=== PATIENT | female | born 1955 | race Caucasian/White ===

== ENCOUNTER → 2019-02-15 15:37 | Outpatient (CLI) | payer OTHER, MEDICARE, SELFPAY ==
[2019-02-15 17:14] LABS: Absolute Lymphocyte Count 1.62 X10^3/ul (0.83-4.51); Absolute Neutrophil Count 4.2 X10^3/uL (2.0-7.7); Basophil# 0.04 X10^3/uL; Basophil% 0.6 % (0-1); Eosinophil# 0.11 X10^3/uL; Eosinophils% 1.7 % (0-5); Hematocrit 41.6 % (37-47); Lymphocyte # 1.62 X10^3/ul (4.0); Mean Corp Hgb Conc 33.7 g/gl (32-36); Mean Corpuscular Hgb 29.6 pg (27.0-32.0); Mean Corpuscular Volume 87.9 fL (81-99); Mean Platelet Vol. 10.5 fl (6.2-12.0); Monocyte# 0.47 X10^3/uL; Monocyte% 7.3 % (0-10); Neutrophil # 4.24 X10^3/uL (2.7-7.7); Neutrophil % 65.4 % (47-70); Platelet Count 321 K/mm3 (150-450); RBC Distribution Width CV 13.5 % (11.6-14.6); RBC Distribution Width SD 43.6 fl (35.1-43.9); Red Blood Count 4.73 M/mm3 (4.2-5.4); White Blood Count 6.5 K/mm3 (4.4-11.0)
[2019-02-15 17:16] LABS: POSITIVE COUNT NO; POSITIVE DIFFERENTIAL NO; POSITIVE MORPHOLOGY NO
[2019-02-15 17:19] LABS: Erythrocyte Sedimentation Rate 22 mm/hr (0-30)
[2019-02-15 17:42] LABS: Thyroid Stim Hormone (TSH) 1.29 uIU/mL (0.358-3.74)
== END ==
PROVIDERS: Family Provider Family Medicine; PCP Family Medicine; Visit Provider Family Medicine
DX: G44.209 Tension-type headache, unspecified, not intractable (principal); E03.9 Hypothyroidism, unspecified; R68.84 Jaw pain
CPT/HCPCS: 36415; 84443; 85025; 85652; 86140

== ENCOUNTER → 2019-03-04 13:31 | Outpatient (CLI) | payer MEDICARE, OTHER, SELFPAY ==
[2019-03-04 15:32] LABS: Absolute Lymphocyte Count 1.51 X10^3/ul (0.83-4.51); Absolute Neutrophil Count 2.6 X10^3/uL (2.0-7.7); Basophil# 0.03 X10^3/uL; Basophil% 0.7 % (0-1); Eosinophil# 0.15 X10^3/uL; Eosinophils% 3.3 % (0-5); Hemoglobin 12.9 g/dl (12.0-15.0); Lymphocyte # 1.51 X10^3/ul (4.0); Lymphocyte % 32.8 % (19-41); Mean Corp Hgb Conc 33.1 g/gl (32-36); Mean Corpuscular Hgb 28.9 pg (27.0-32.0); Mean Corpuscular Volume 87.4 fL (81-99); Mean Platelet Vol. 11.4 fl (6.2-12.0); Monocyte# 0.35 X10^3/uL; Monocyte% 7.6 % (0-10); Neutrophil # 2.55 X10^3/uL (2.7-7.7); Neutrophil % 55.4 % (47-70); POSITIVE COUNT NO; POSITIVE DIFFERENTIAL NO; POSITIVE MORPHOLOGY NO; Platelet Count 277 K/mm3 (150-450); RBC Distribution Width CV 13.5 % (11.6-14.6); RBC Distribution Width SD 42.1 fl (35.1-43.9); Red Blood Count 4.46 M/mm3 (4.2-5.4); White Blood Count 4.6 K/mm3 (4.4-11.0)
[2019-03-04 15:38] LABS: CRP 6.36 mg/L (0.0-3.0)
[2019-03-04 16:30] LABS: Erythrocyte Sedimentation Rate 17 mm/hr (0-30)
== END ==
PROVIDERS: Family Provider Family Medicine; PCP Family Medicine; Visit Provider Family Medicine
DX: R51 Headache (principal)
CPT/HCPCS: 36415; 85025; 85652; 86140

== ENCOUNTER 2024-02-29 07:08 | Day surgery (SDC) | payer MEDICARE, OTHER, SELFPAY ==
[2024-02-29] VITALS (8 sets, daily range): BP systolic 105–118; BP diastolic 65–73; PULSE 69–74; RESP 16; TEMP 36.1–36.6; O2SAT 96–100; BMI 25.7
--- NOTE | 2024-02-29 07:17 | EKG12_ITS ---
Test Reason : PRE OP Blood Pressure : / mmHG Vent. Rate : 066 BPM Atrial Rate : 066 BPM P-R Int : 194 ms QRS Dur : 078 ms QT Int : 402 ms P-R-T Axes : 025 -09 003 degrees QTc Int : 421 ms Normal sinus rhythm Septal infarct , age undetermined Abnormal ECG No previous ECGs available Confirmed by CARIN HILLMAN, TAMI ([id number]), purchasing expeditor KIMBERLI ASHTON ([id number]) on 03/03/2024 8:34:07 AM Referred By: Rick Brown Confirmed By:TAMI DEL ROSARIO MD
--- NOTE | 2024-02-29 07:35 | PRE.ANES_ITS ---
ASA Classification* ASA Classification ASA Classification: 2 Assessment & Plan Anesthesia* Anesthesia Assessment Anesthesia Assessment: Discussed sedation and/or anesthesia options, risks, benefits, and alternatives with patient/parents/legal guardian/POA. Questions invited. The patient/parents/legal guardian/POA seems to understand and agrees to proceed with anesthesia plan. Reviewed the physical assessment, medical history, allergy history and patient home medications list prior to surgery/procedure/anesthetic and documented any changes. Performed airway and anesthesia risk assessments. 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 When Was Last Pacemaker Check QUESTION #4 FULL TEXT: You/Your Family Experience fever (hyperthermia) with Anesthesia Last Oral Intake Last Oral intake: Last Oral Intake NPO since Meds taken in AM with sips of water? 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 Female Yes 02/26/24 10:46 HX of Motion Sickness Yes 02/26/24 10:46 HX of N/V After Surgery No 02/26/24 10:46 Non-Smoker Yes 02/26/24 10:46 Duration of Surgery greater No 02/26/24 10:46 than 60 minutes Number of Risk Factors 3 02/26/24 10:46 PONV Score Moderate Risk 02/26/24 10:46 Respiratory Assessment Respiratory Assessment - deep fryer assembler: Respiratory Tract Infection Hx - deep fryer assembler Hx Respiratory Tract Infection No 02/26/24 10:46 STOP Sleep Apnea STOP Sleep Apnea - deep fryer assembler: STOP Sleep Apnea - deep fryer assembler Hx Hypertension No 02/26/24 10:46 Hx Sleep Apnea No 02/26/24 10:46 CPAP BIPAP Do you snore loudly (louder No 02/26/24 10:46 than talking or can be heard Do you often feel tired/ No 02/26/24 10:46 fatigued/ sleepy during daytime? Has anyone observed you stop No 02/26/24 10:46 breathing during sleep? STOP Results Negative 02/26/24 10:46 QUESTION #5 FULL TEXT : Do you snore loudly (louder than talking or can be heard through closed doors)? 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 Specify any problems NEUROLEPTIC MALIGNENCY 02/26/24 10:46 Hx of Preganancy in last 3 No 02/26/24 10:46 Months Nurse Filling Out Transfusion DSCHRIBER 02/26/24 10:46 & Questions: Date: 02/26/24 02/26/24 10:46 Time: 10:48 02/26/24 10:46 Patient unable to answer at this time (ie. confused, unrespo /Reproduction History /Reproductive History - deep fryer assembler: /Reproductive Hx- deep fryer assembler Hx Now No 02/26/24 10:46 Gestational Age (in weeks): EDC: Hx Hx Para Hx Section SAB No 02/26/24 10:46 Active Medications Active Medications: Current Medications Generic Name Dose Route Start Last Admin Trade Name Freq PRN Reason Stop Dose Admin Lactated Ringer's 1,000 mls @ 15 mls/hr 02/29/24 07:30 IV .Q48H [facility] Anesthesia Focused Assessment* Airway Assessment Mouth opens: >3 cm Mallampati Score: II Focused Labs Anesthesia Preop lab: CBC WBC 4.6 K/mm3 (4.4-11.0) 03/04/19 13:32 RBC 4.46 M/mm3 (4.2-5.4) 03/04/19 13:32 Hgb 12.9 g/dl (12.0-15.0) 03/04/19 13:32 Hct 39.0 % (37-47) 03/04/19 13:32 Plt Count 277 K/mm3 (150-450) 03/04/19 13:32 CHEMISTRY TSH 1.29 uIU/mL (0.358-3.74) 02/15/19 15:48 COAG Review of Systems (Anesthesia) ROS Narrative System reviewed and no additional complaints, except as documented. [facility] Medical History (Updated 02/26/24 @ 11:28 by Sharon Devries) Factor 5 Leiden mutation, heterozygous Wears hearing aid Wears glasses Post-menopausal Alcohol use History of steroid therapy Thyroid disease Rheumatoid arthritis Anemia Blood disorder Shortness of breath on exertion Non-smoker Leg cramps History of edema Home Medications ?Medication ?Instructions ?Recorded ?Last Taken ?Type albuterol sulfate 90 mcg/actuation 2 puff inhalation Q4H PRN PRN 02/26/24 Unknown History aerosol inhaler wheezing aspirin 81 mg tablet,delayed 81 mg PO DAILY 02/26/24 02/23/24 History release (Adult Low Dose Aspirin) hydroxychloroquine 200 mg tablet 200 mg PO BID 02/26/24 Unknown History levothyroxine 112 mcg tablet 112 mcg PO DAILY 02/26/24 Unknown History Allergy/AdvReac Type Severity Reaction Status Date / Time pollen extracts AdvReac sinusitis Verified 02/29/24 07:36 Surgical History (Updated 02/26/24 @ 11:00 by Sharon Devries) Hx of bladder repair surgery Hx of colonoscopy Hx of total hysterectomy Hx of brain surgery Social History Smoking Status: Never smoker
[2024-02-29] MEDS: Lactated Ringers 1,000 ML 15 ML IV (07:39)
[2024-02-29 08:02] LABS: Hematocrit 41.5 % (37-47); Hemoglobin 13.4 g/dL (12.0-15.0); Mean Corp Hgb Conc 32.3 g/dL (32-36); Mean Corpuscular Hgb 29.8 pg (27.0-32.0); Mean Corpuscular Volume 92.4 fL (81-99); Platelet Count 253 K/mm3 (150-450); RBC Distribution Width CV 13.1 % (11.6-14.6); RBC Distribution Width SD 44.5 fl (35.1-43.9); Red Blood Count 4.49 M/mm3 (4.2-5.4)
[2024-02-29 08:13] LABS: Anion Gap 6 (5-15); BUN 10 mg/dL (7-18); BUN/Creat Ratio 16.3 RATIO (10-20); Calcium,Total 8.5 mg/dL (8.5-10.1); Chloride 111 mmol/L (98-107); Creatinine, Serum 0.61 mg/dL (0.55-1.02); EST Glomerular Filtration Rate 102 mL/min (>60); Est Glom Filt Rate - Afr Amer 124 mL/min (>60); Estimated Creatinine Clearance 66.71 ml/min; Glucose 98 mg/dL (74-106); Potassium 3.9 mmol/L (3.5-5.1); Sodium Level 142 mmol/L (136-145)
--- NOTE | 2024-02-29 09:02 | DS.PCM_ITS ---
Providers Primary Care Physician: Dr. Alyssa Philip MD Reason For Visit: Myringotomy,Tubes Medications at Discharge Home Medications albuterol sulfate 90 mcg/actuation aerosol inhaler 2 puff inhalation Q4H PRN PRN wheezing 02/26/24 aspirin 81 mg tablet,delayed release (Adult Low Dose Aspirin) 81 mg PO DAILY 02/26/24 hydroxychloroquine 200 mg tablet 200 mg PO BID 02/26/24 levothyroxine 112 mcg tablet 112 mcg PO DAILY 02/26/24 Weight / BMI Weight Weight: 72.5 kg Body Mass Index (BMI) 25.7 ABG / Lab / Microbiology Data 02/29/24 07:47 02/29/24 07:47 Laboratory: Laboratory Results - last 24 hr 02/29/24 07:47: WBC 5.0, RBC 4.49, Hgb 13.4, Hct 41.5, MCV 92.4, MCH 29.8, MCHC 32.3, RDW Std Deviation 44.5 H, RDW Coeff of Marie 13.1, Plt Count 253, MPV 10.0, Sodium 142, Potassium 3.9, Chloride 111 H, Carbon Dioxide 25.0, Anion Gap 6, BUN 10, Creatinine 0.61, Estim Creat Clear Calc 66.71, Est GFR (MDRD) Af Amer 124, Est GFR (MDRD) Non-Af 102, BUN/Creatinine Ratio 16.3, Glucose 98, Calcium 8.5 D/C Instructions Discharge Diet: No restrictions Discharge Activity: Return to Normal Activity Additional Instructions: Ear drops....5 drops each ear twice a day for 2 days (3 doses) Please Follow Up With: Rick Brown MD When: 3 weeks Meaningful Use Info Meaningful Use Meaningful Use Diagnoses (Choose all that apply): None applicable Ischemic Stroke Statin Dosing Therapy Reference: STATIN DOSE THERAPY REFERENCE: * Patients > 75 years receive moderate or high dose statin therapy. * Patients 75 years or YOUNGER should receive HIGH intensity statin dose unless contraindicated. You will be required to document reason for non-treatment if statin daily dose does not meet guidelines. HIGH DOSE STATIN THERAPY DAILY Atorvastatin > than or = to 40 mg Rosuvastatin > than or = to 20 mg Amlodipine + Atorvastatin > than or = to 2.5/40 mg Ezetimibe + Simvastatin 10/80 mg Simvastatin 80mg Discharge Plan Admission Attending Provider: Rick Brown Primary Care Provider: Alyssa Philip Instructions Print Language: Croatian Discharge Orders/Prescriptions Prescriptions: No Action levothyroxine 112 mcg tablet 112 mcg PO DAILY hydroxychloroquine 200 mg tablet 200 mg PO BID aspirin [Adult Low Dose Aspirin] 81 mg tablet,delayed release (DR/EC) 81 mg PO DAILY albuterol sulfate 90 mcg/actuation HFA aerosol inhaler 2 puff INHALATION Q4H PRN PRN (Reason: wheezing) Referrals / Follow Up: Alyssa Philip MD [Primary Care Provider] - Disposition Disposition (needs filled in before D/C Order can be placed): Home, Self Care
--- NOTE | 2024-02-29 09:03 | OP.PCM_ITS ---
Report of Operation Date of Procedure: 02/29/24 Pre-Operative Diagnosis: chronic serous otitis media Post-Operative Diagnosis: same Surgery/Procedure Performed:: Bilateral myringotomy with tubes Surgeon: Rick Brown Type of Anesthesia: General Anesthesiologist: Pascual Correa Estimated Blood Loss (mL): minimal Description of Procedure: The patient was taken to the operating room on 02/29/2024. The patient was placed in the supine position on the operating room table. The patient was given sufficient general anesthesia. The operating microscope was used throughout the entire case. A speculum was inserted into the patient's left ear. Cerumen was removed using a curette. An incision was placed in the anterior inferior quadrant of the tympanic membrane. Fluid was suctioned from the middle ear space with a #5 suction. A Arun Bobin tube was placed without difficulty. Antibiotic drops were instilled into the patient's ear. Next, a speculum was inserted into the patient's right ear. Cerumen was removed using a curette. An incision was placed in the anterior inferior quadrant of the tympanic membrane. Fluid was suctioned from the middle ear space with a #5 suction. A arun bobin tube was placed without difficulty. Antibiotic drops were instilled into the patient's ear. The patient was then awoken. They were brought to the recovery room in stable condition. Blood loss minimal, replacement none. sponge, needle and instrument counts correct at the end of the procedure.
[2024-02-29] MEDS: Ciprofloxacin 0.3% 2.5ml Bottle 1 DRP (09:19)
--- NOTE | 2024-02-29 09:37 | PCM.POST.ANE ---
Anesthesia: Postop Eval I Current Vital Signs Temperature: 97.6 F Pulse Rate: 71 Blood Pressure: 107/71 Respiratory Rate: 16 Pulse Ox: 96 Assessment Airway patent: Yes Spontaneous unlabored respirations: Yes Mental status: Awake nausea: No Vomiting: No Anesthesia Complication: No Fluid Hydration Crystalloid volume administer (ml): 400 Total IV fluid infused: 400 Progress Note Anesthesia document: Postop Eval 1 completed: Yes
--- NOTE | 2024-02-29 12:36 | PCM.POSTANE2 ---
Anesthesia Postop Eval I Sum Postop Eval Completion status Anesthesia document: Postop Eval 1 completed: Yes Anesthesia Postop Eval I Summary Anesthesia Postop Eval I Summary: Anesthesia Postop Eval I: Assessment Summary Airway patent Yes 02/29/24 09:39 Spontaneous unlabored Yes 02/29/24 09:39 respirations Mental status Awake 02/29/24 09:39 nausea No 02/29/24 09:39 Vomiting No 02/29/24 09:39 Anesthesia Postop Eval I: Fluid Summary Crystalloid volume administer 400 02/29/24 09:39 (ml) Colloids volume administered ( ml) Blood Product volume administered (ml) Total IV fluid infused 400 02/29/24 09:39 Anesthesia Postop Eval I: Summary Notes Anesthesia Complication No 02/29/24 09:39 Anesthesia Complication Comment: Post-operative progress note Anesthesia: Postop Eval II Evaluation Mental status: Awake Pain Level: 0 nausea: No Vomiting: No Complications Anesthesia Complication: No
== END 2024-02-29 10:50 | disposition home or self-care (01) ==
LOC: SDC 07:10 → AC 07:12
PROVIDERS: PCP Family Medicine; Referring Provider Otolaryngology; Visit Provider Otolaryngology
PROC: (CPT 69436; principal; 2024-02-29 08:35)
DX: H65.23 Chronic serous otitis media, bilateral (principal); E07.9 Disorder of thyroid, unspecified; Z79.82 Long term (current) use of aspirin; Z79.890 Hormone replacement therapy
CPT/HCPCS: 69436; 00126; 80048; 85027; 93005; J7120

== ENCOUNTER → 2024-07-29 | Outpatient (CLI) | payer MEDICARE, OTHER, SELFPAY ==
[2024-07-29 15:45] LABS: T4 Free Direct 1.07 ng/dL (0.76-1.46)
== END | disposition home or self-care (01) ==
LOC: BFHLAB 11:50
PROVIDERS: PCP Family Medicine; Referring Provider Family Medicine; Visit Provider Family Medicine
DX: E03.9 Hypothyroidism, unspecified (principal)
CPT/HCPCS: 36415; 84439; 84443

== ENCOUNTER → 2025-08-25 | Outpatient (CLI) | payer MEDICARE, OTHER, SELFPAY ==
--- OUTSIDE RECORDS SUMMARY | 2025-08-25 16:05 | XMS RPT_ITS | CCD ---
Author Organization [facility]iniSyne Care Team Providers Care Project Management Instructor Name Role Phone Cj Ron Unavailable Unavailable Stanislav Cazares Unavailable Unavailable Alyssa Philip Primary Care Provider [phone] Alyssa Philip Primary Care Provider Alyssa Philip MD Primary Care Provider Alyssa Philip MD Primary Care Provider ALYSSA PHILIP Attending Unavailable MIKAMRYNEL, ALYSSA Admitting Unavailable MIEDEL, ALYSSA Primary Care Unavailable MIEDEL, ALYSSA Consulting Unavailable PROVIDER, UNKNOWN Consulting Unavailable PROVIDER, UNKNOWN Consulting Unavailable MIKAMRYNEL, ALYSSA Attending Unavailable MIEDEL, ALYSSA Admitting Unavailable MIEDEL, ALYSSA Primary Care Unavailable MIEDEL, ALYSSA Consulting Unavailable PROVIDER, UNKNOWN Consulting Unavailable PROVIDER, UNKNOWN Consulting Unavailable MIKAMRYNEL, ALYSSA Attending Unavailable MIEDEL, ALYSSA Admitting Unavailable MIEDEL, ALYSSA Primary Care Unavailable MIEDEL, ALYSSA Consulting Unavailable PROVIDER, UNKNOWN Consulting Unavailable PROVIDER, UNKNOWN Consulting Unavailable Miedel, Alyssa Primary Care Unavailable Quincy Pierce Attending Unavailable Rick Brown Referring Unavailable Miedel, Alyssa Primary Care Unavailable Rick Brown Referring Unavailable Rick Brown Attending Unavailable Mikamrynel, Alyssa Attending Unavailable Miedel, Alyssa Primary Care Unavailable Miedel, Alyssa Referring Unavailable Alyssa Philip MD Primary Care Provider UNGPRASERT, PATOMPONG Attending Unavailabl e ALYSSA PHILIP E Primary Care Unavailable UNGPRASERT, PATOMPONG Referring Unavailabl e MIEDEL, ALYSSA E Primary Care Unavailable UNGPRASERT, PATOMPONG Referring Unavailabl e MIEDEL, ALYSSA E Primary Care Unavailable UNGPRASERT, PATOMPONG Referring Unavailabl e MIEDEL, ALYSSA E Primary Care Unavailable UNGPRASERT, PATOMPONG Attending Unavailabl e MIEDEL, ALYSSA E Primary Care Unavailable Allergies Allergy Classification Reported Allergen(s) Allergy Type Date of Onset Reaction(s) Facility (9 sources) Seasonal [Other] Propensity to adverse reactions 3 [facility] Work Phone (unformatted): [phone] (1 source) Pollen Drug allergy (disorder) 4 [facility] Repository Medications Current Medications Medication Drug Class(es) Dates Sig (Normalized) Sig (Original) aspirin 81 mg chewable tablet (13 sources) Platelet Aggregation Inhibitor, Nonsteroidal Anti-inflammatory Drug Start: 8 take 1 tablet by mouth once daily aspirin 81 mg chewable tablet Take 1 tablet by mouth once daily. 30 tablet 2 02/17/2018 Active Comment on above: Take 1 tablet by yohannes th once daily. hydroxychloroquine sulfate 200 mg oral tablet (20 sources) Antimalarial, Antirheumatic Agent Start: 5 End: 5 take 1 tablet by mouth twice daily hydrOXYchloroQUINE (PLAQUENIL) 200 mg tablet Indications: Seronegative rheumatoid arthritis (HCC) Take 1 tablet by mouth twice daily 180 tablet 3 05/29/2025 Active Start: 01-16-2025 End: 03-13-2025 take 1 tablet by mouth twice daily hydrOXYchloroQUINE (PLAQUENIL) 200 mg tablet Indications: Seronegative rheumatoid arthritis (HCC) Take 1 tablet by mouth twice daily 60 tablet 03/13/2025 Active Start: 12-23-2021 End: 01-11-2025 take 1 tablet by mouth twice daily hydrOXYchloroQUINE (PLAQUENIL) 200 mg tablet Indications: Seronegative rheumatoid arthritis (HCC) Take 1 tablet by mouth two times a day. 180 tablet 3 01/12/2024 01/11/2025 Active Comment on above: Take 1 tablet by yohannes th twice daily. Take 1 tablet by yohannes th twice daily iv contrast (will be provided with radiology test) (20 sources) Start: 3 End: 3 inject 1 dose intravenously once iv contrast (will be provided with radiology test) Indications: Dural arteriovenous fistula MRI Brain Inject, intravenously, once for 1 dose.No IV access, insert saline lock prior to beginning of sedation, infusion, injection of imaging exam.Discontinue saline lock post exam. If Pt. has a central line or IVAD, may access for administration according to line specific nursing protocol.Once exam is complete flush line and de-access according to line specific nursing protocol in the MR contrast administration guidelines link 1 Each 0 09/19/2022 09/19/2022 Active Start: 2021 End: 01-09-2025 iv contrast (will be provide d with radiology test) Indications: Seizure (HCC) MRA Brain Inject, intravenously, once for 1 dose. No IV access, insert saline lock prior to the beginning of sedation, infusion, injection of imaging exam. Discontinue saline lock post exam. If Pt. has a central line or IVAD, may access for administration according to line specific nursing protocol. Once exam is complete flush line and de-access according to line specific nursing protocol in the MR contrast administration guidelines link. 1 Each 2021 01/09/2025 Discontinued Start: 2021 iv contrast (w ill be provided with radiology test) Indications: Seizure (HCC) MRA Brain Inject, intravenously, once for 1 dose. No IV access, insert saline lock prior to the beginning of sedation, infusion, injection of imaging exam. Discontinue saline lock post exam. If Pt. has a central line or IVAD, may access for administration according to line specific nursing protocol. Once exam is complete flush line and de-access according to line specific nursing protocol in the MR contrast administration guidelines link. 1 Each 2021 Active Start: 2021 iv contrast (w ill be provided with radiology test) Indications: Seizure (HCC) MRA Brain Inject, intravenously, once for 1 dose. No IV access, insert saline lock prior to the beginning of sedation, infusion, injection of imaging exam. Discontinue saline lock post exam. If Pt. has a central line or IVAD, may access for administration according to line specific nursing protocol. Once exam is complete flush line and de-access according to line specific nursing protocol in the MR contrast administration guidelines link. 1 Each 0 2021 Active Start: 05-03-2018 End: 01-09-2025 inject 1 dose intravenously once iv contrast (will be provided with radiology test) MRI Brain Inject, intravenously, once for 1 dose.No IV access, insert saline lock prior to beginning of sedation, infusion, injection of imaging exam.Discontinue saline lock post exam. If Pt. has a central line or IVAD, may access for administration according to line specific nursing protocol.Once exam is complete flush line and de-access according to line specific nursing protocol in the MR contrast administration guidelines link 1 Each 05/03/2018 01/09/2025 Discontinued Start: 05-03-2018 inject 1 dose intravenously on ce iv contrast (will be provided with radiology test) MRI Brain Inject, intravenously, once for 1 dose.No IV access, insert saline lock prior to beginning of sedation, infusion, injection of imaging exam.Discontinue saline lock post exam. If Pt. has a central line or IVAD, may access for administration according to line specific nursing protocol.Once exam is complete flush line and de-access according to line specific nursing protocol in the MR contrast administration guidelines link 1 Each 05/03/2018 Active Start: 05-03-2018 inject 1 dose intravenously on ce iv contrast (will be provided with radiology test) MRI Brain Inject, intravenously, once for 1 dose.No IV access, insert saline lock prior to beginning of sedation, infusion, injection of imaging exam.Discontinue saline lock post exam. If Pt. has a central line or IVAD, may access for administration according to line specific nursing protocol.Once exam is complete flush line and de-access according to line specific nursing protocol in the MR contrast administration guidelines link 1 Each 0 05/03/2018 Active Comment on above: MRI Brain Inject, in travenously, once for 1 dose.No IV access, insert saline lock prior to beginning of sedation, infusion, injection of imaging exam.Discontinue saline lock post exam. If Pt. has a central line or IVAD, may access for administration according to line specific nursing protocol.Once exam is complete flush line and de-access according to line specific nursing protocol in the MR contrast administration guidelines link MRA Brain Inject, in travenously, once for 1 dose. No IV access, insert saline lock prior to the beginning of sedation, infusion, injection of imaging exam. Discontinue saline lock post exam. If Pt. has a central line or IVAD, may access for administration according to line specific nursing protocol. Once exam is complete flush line and de-access according to line specific nursing protocol in the MR contrast administration guidelines link. levothyroxine sodium 0.112 mg oral tablet (18 sources) l-Thyroxine Start: 022 take 1 tablet by mouth once daily levothyroxine (SYNTHROID) 112 mcg tablet Take 112 mcg by mouth once daily. 10/10/2021 Active Comment on above: Take 112 mcg by mout h once daily. polyethylene glycol 3350 90235 mg powder for oral solution (18 sources) Osmotic Laxative Start: 003 MIRALAX POWDER 17 gm po qd with 4 oz of liquid 1 bottle 3 08/08/2003 Active Comment on above: 17 gm po qd with 4 o z of liquid triamcinolone acetonide 5 mg/ml topical cream (14 sources) Corticosteroid Start: 023 triamcinolone acetonide (KENALOG) 0.5 % cream APPLY CREAM TOPICALLY TO AFFECTED AREA ONCE DAILY 02/03/2023 Active Comment on above: APPLY CREAM TOPICALL Y TO AFFECTED AREA ONCE DAILY Problems Active Problems Problem Classification Problem Date Documented Da te Episodic/Chronic Cardiac and circulatory congenital anomalies (2 sources) Congenital vascular malformation; 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] Chronic Coagulation and hemorrhagic disorders (18 sources) Genetic mutation; 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] Onset: 02-17-2018 02-17-2018 Chronic Menopausal disorders (18 sources) Atrophic vaginitis; Translations: [Postmenopausal atrophic vaginitis] Onset: 07-16-2004 08-13-2004 Chronic Osteoarthritis (1 source) Localized, primary osteoarthritis of the hand; Translations: [Primary osteoarthritis, unspecified hand] Chronic Other aftercare (6 sources) Taking high risk medication; Translations: [Other middle or intermediate school principal (current) drug therapy] Episodic Other aftercare (1 source) Other middle or intermediate school principal (current) drug therapy; Translations: [High risk medication use] Onset: 06-20-2025 Episodic Other and ill-defined cerebrovascular disease (20 sources) Dural arteriovenous fistula; 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, nonruptured] Onset: 05-03-2018 05-03-2018 Chronic Other circulatory disease (18 sources) Arteriovenous fistula; 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, acquired] Onset: 02-11-2018 02-16-2018 Chronic Other lower respiratory disease (1 source) Cough; Translations: [Cough, unspecified type] 06-30-2023 Episodic Other non-traumatic joint disorders (1 source) Hip pain; Translations: [Pain in right hip] 01-09-2025 Episodic Other non-traumatic joint disorders (1 source) Pain in right knee; Translations: [Pain in joint, lower leg] 01-09-2025 Episodic Otitis media and related conditions (1 source) Chronic serous otitis media, bilateral; Translations: [Chronic serous otitis media, bilateral] Onset: 03-07-2024 Chronic Rheumatoid arthritis and related disease (17 sources) Seropositive rheumatoid arthritis; Translations: [Rheumatoid arthritis with rheumatoid factor, unspecified] Onset: 06-20-2025 Chronic Thyroid disorders (19 sources) Hypothyroidism; Translations: [Hypothyroidism, unspecified] Onset: 02-16-2018 02-16-2018 Chronic Unclassified (1 source) Unknown / UNK(Unknown) Onset: 02-10-2018 Unclassified (18 sources) ASA CLASS III Onset: 09-26-2003 01-08-2004 Past or Other Problems Problem Classification Problem Date Documented Da te Episodic/Chronic Epilepsy; convulsions (19 sources) Seizure; Translations: [Unspecified convulsions] Onset: 02-10-2018 02-12-2018 Episodic Other screening for suspected conditions (not mental disorders or infectious disease) (18 sources) MRI of head abnormal; Translations: [Abnormal findings on diagnostic imaging of skull and head, not elsewhere classified] Onset: 11-17-2021 11-17-2021 Episodic Residual codes; unclassified (12 sources) Family history of cancer of colon; Translations: [Family history of malignant neoplasm of digestive organs] Onset: 12-18-2023 12-18-2023 Episodic Results Test Name Value Interpretation Reference Range Facility ALT SerPl-cCncon 06-20-2025 ALT [Catalytic activity/Vol] 17 U/L Normal 7-38 [facility] Comment on above: Order Comment: Speci men Type: BLOOD SPECIMEN Ordering Facility: [facility] Address: [address] [place] [id number] Performed By: #### 1 920-8, 1742-6, 3094-0, 56816-6 #### [facility] CLIA [id number] [address] [place] [address] [place] AST SerPl-cCncon 06-20-2025 AST [Catalytic activity/Vol] 22 U/L Normal 13-35 [facility] Comment on above: Order Comment: Speci men Type: BLOOD SPECIMEN Ordering Facility: [facility] Address: [address] [place] [address] Performed By: #### 1 920-8, 1742-6, 3094-0, 99716-7 #### [facility] CLIA [id number] [address] [place] [address] [place] BUN SerPl-mCncon 06-20-2025 Urea nitrogen [Mass/Vol] 13 mg/dL Normal 7-21 [facility] Comment on above: Order Comment: Speci men Type: BLOOD SPECIMENOrdering Facility: [facility] Address: [address] [place] [address] Performed By: #### 1 920-8, 1742-6, 3094-0, 23791-6 ####[facility] ERNCLIA [id number] [place] [address] [place] CBC W Auto Differential pane l (Bld)on 06-20-2025 Basophils (Bld) [#/Vol] 0.08 10*3/uL Normal <0.11 [facility] Comment on above: Order Comment: Speci men Type: BLOOD SPECIMENOrdering Facility: [facility] Address: [address] [place] [address] Performed By: #### 5 7021-8 ####[facility] ERNCLIA [id number] [place] [address] [place] Basophils/100 WBC (Bld) 1.4 % Normal [facility] Comment on above: Order Comment: Speci men Type: BLOOD SPECIMENOrdering Facility: [facility] Address: [address] [place] [address] Performed By: #### 5 7021-8 ####[facility] [id number] [place] [address] [place] Differential cell count method Nom (Bld) Auto Normal [facility] Comment on above: Order Comment: Speci men Type: BLOOD SPECIMENOrdering Facility: [facility] Address: [address] [place] [address] Performed By: #### 5 7021-8 ####[facility] [id number] [place] [address] [place] Eosinophils (Bld) [#/Vol] 0.28 10*3/uL Normal <0.46 [facility] Comment on above: Order Comment: Speci men Type: BLOOD SPECIMENOrdering Facility: [facility] Address: [address] [place] [address] Performed By: #### 5 7021-8 ####[facility] [id number] [place] [address] [place] Eosinophils/100 WBC (Bld) 5.0 % Normal [facility] Comment on above: Order Comment: Speci men Type: BLOOD SPECIMENOrdering Facility: [facility] Address: [address] [place] [address] Performed By: #### 5 7021-8 ####[facility] [id number] [place] [address] [place] Erythrocyte distribution width (RBC) [Ratio] 13.3 % Normal 11.5-15.0 [facility] Comment on above: Order Comment: Speci men Type: BLOOD SPECIMENOrdering Facility: [facility] Address: [address] [place] [address] Performed By: #### 5 7021-8 ####[facility] [id number] [place] [address] [place] Hematocrit (Bld) [Volume fraction] 39.6 % Normal 36.0-46.0 [facility] Comment on above: Order Comment: Speci men Type: BLOOD SPECIMENOrdering Facility: [facility] Address: [address] [place] [address] Performed By: #### 5 7021-8 ####[facility] ERNCKALA [id number] [place] [address] [place] Hemoglobin (Bld) [Mass/Vol] 13.6 g/dL Normal 11.5-15.5 [facility] Comment on above: Order Comment: Speci men Type: BLOOD SPECIMENOrdering Facility: [facility] Address: [address] [place] [address] Performed By: #### 5 7021-8 ####[facility]NCUIN[facility] [id number] [place] [address] [place] Immature granulocytes (Bld) [#/Vol] 10*3/uL Normal <0.10 [facility] Comment on above: Order Comment: Speci men Type: BLOOD SPECIMENOrdering Facility: [facility] Address: [address] [place] [address] Performed By: #### 5 7021-8 ####[facility] ERNCLIA [id number] [place] [address] [place] Immature granulocytes/100 WBC (Bld) 0.2 % Normal [facility] Comment on above: Order Comment: Speci men Type: BLOOD SPECIMENOrdering Facility: [facility] Address: [address] [place] [address] Performed By: #### 5 7021-8 ####[facility] ERNCLIA [id number] [place] [address] [place] Lymphocytes (Bld) [#/Vol] 1.34 10*3/uL Normal 1.00-4.00 [facility] Comment on above: Order Comment: Speci men Type: BLOOD SPECIMENOrdering Facility: [facility] Address: [address] [place] [address] Performed By: #### 5 7021-8 ####[facility] [id number] [place] [address] [place] Lymphocytes/100 WBC (Bld) 23.9 % Normal [facility] Comment on above: Order Comment: Speci men Type: BLOOD SPECIMENOrdering Facility: [facility] Address: [address] [place] [address] Performed By: #### 5 7021-8 ####[facility] [id number] [place] [address] [place] MCH (RBC) [Entitic mass] 30.2 pg Normal 26.0-34.0 [facility] Comment on above: Order Comment: Speci men Type: BLOOD SPECIMENOrdering Facility: [facility] Address: [address] [place] [address] Performed By: #### 5 7021-8 ####[facility] [id number] [place] [address] [place] MCHC (RBC) [Mass/Vol] 34.3 g/dL Normal 30.5-36.0 [facility] Comment on above: Order Comment: Speci men Type: BLOOD SPECIMENOrdering Facility: [facility] Address: [address] [place] [address] Performed By: #### 5 7021-8 ####[facility] [id number] [place] [address] [place] MCV (RBC) [Entitic vol] 88.0 fL Normal 80.0-100.0 [facility] Comment on above: Order Comment: Speci men Type: BLOOD SPECIMENOrdering Facility: [facility] Address: [address] [place] [address] Performed By: #### 5 7021-8 ####[facility] [id number] [place] [address] [place] Monocytes (Bld) [#/Vol] 0.45 10*3/uL Normal <0.87 [facility] Comment on above: Order Comment: Speci men Type: BLOOD SPECIMENOrdering Facility: [facility] Address: [address] [place] [address] Performed By: #### 5 7021-8 ####[facility] BABIESWNCLIA [id number] [place] [address] [place] Monocytes/100 WBC (Bld) 8.0 % Normal [facility] Comment on above: Order Comment: Speci men Type: BLOOD SPECIMENOrdering Facility: [facility] Address: [address] [place] [address] Performed By: #### 5 7021-8 ####[facility] [id number] [place] [address] [place] Neutrophils (Bld) [#/Vol] 3.44 10*3/uL Normal 1.45-7.50 [facility] Comment on above: Order Comment: Speci men Type: BLOOD SPECIMENOrdering Facility: [facility] Address: [address] [place] [address] Performed By: #### 5 7021-8 ####[facility] ERNCLIA [id number] [place] [address] [place] Neutrophils/100 WBC (Bld) 61.5 % Normal [facility] Comment on above: Order Comment: Speci men Type: BLOOD SPECIMENOrdering Facility: [facility] Address: [address] [place] [address] Performed By: #### 5 7021-8 ####[facility] ERNCLIA [id number] [place] [address] [place] Nucleated RBC (Bld) [#/Vol] 10*3/uL Normal <0.01 [facility] Comment on above: Order Comment: Speci men Type: BLOOD SPECIMENOrdering Facility: [facility] Address: [address] [place] [address] Performed By: #### 5 7021-8 ####[facility] ARIMarkelNCINDY [id number] [place] [address] [place] Nucleated RBC/100 WBC (Bld) [Ratio] 0.0 /100 WBC Normal [facility] Comment on above: Order Comment: Speci men Type: BLOOD SPECIMENOrdering Facility: [facility] Address: [address] [place] [address] Performed By: #### 5 7021-8 ####[facility] ERNCLIGurdeep [id number] [place] [address] [place] Platelet mean volume (Bld) [Entitic vol] 9.9 fL Normal 9.0-12.7 [facility] Comment on above: Order Comment: Speci men Type: BLOOD SPECIMENOrdering Facility: [facility] Address: [address] [place] [address] Performed By: #### 5 7021-8 ####[facility] ERNCLIA [id number] [place] [address] [place] Platelets (Bld) [#/Vol] 277 10*3/uL Normal 150-400 [facility] Comment on above: Order Comment: Speci men Type: BLOOD SPECIMENOrdering Facility: [facility] Address: [address] [place] [address] Performed By: #### 5 7021-8 ####[facility] ERNCLIA [id number] [place] [address] [place] RBC (Bld) [#/Vol] 4.50 10*6/uL Normal 3.90-5.20 [facility] Comment on above: Order Comment: Speci men Type: BLOOD SPECIMENOrdering Facility: [facility] Address: [address] [place] [address] Performed By: #### 5 7021-8 ####[facility] ERJESSIKAGurdeep [id number] [place] [address] [place] WBC (Bld) [#/Vol] 5.60 10*3/uL Normal 3.70-11.00 [facility] Comment on above: Order Comment: Speci men Type: BLOOD SPECIMENOrdering Facility: [facility] Address: [address] [place] [address] Performed By: #### 5 7021-8 ####[facility] [id number] [place] [address] [place] CRP SerPl-mCncon 06-20-2025 CRP [Mass/Vol] mg/L Normal <0.9 [facility] Comment on above: Order Comment: Speci men Type: BLOOD SPECIMENOrdering Facility: [facility] Address: [address] [place] [address] Performed By: #### 1 988-5 ####[facility] LABCLIA [id number] [place] [address] [place] Creatinine and Glomerular fi ltration rate.predicted panel (S/P/Bld)on 06-20-2025 Creatinine [Mass/Vol] 0.60 mg/dL Normal 0.58-0.96 [facility] Comment on above: Order Comment: Speci men Type: BLOOD SPECIMENOrdering Facility: [facility] Address: [address] [place] [address] Performed By: #### 1 920-8, 1742-6, 3094-0, 00185-5 ####[facility] [id number] [place] [address] [place] eGFRcr SerPlBld CKD-EPI 2020 96 mL/min/1.73m??? Normal >=60 [facility] Comment on above: Order Comment: Speci men Type: BLOOD SPECIMENOrdering Facility: [facility] Address: [address] [place] [address] Result Comment: Nenita mated Glomerular Filtration Rate (eGFR) is calculated using the 2020 CKD-EPI creatinine equation. This equation utilizes serum creatinine, sex, and age as parameters. The creatinine assay has traceable calibration to isotope dilution-mass spectrometry. Refer to KDIGO guidelines for clinical interpretation. In patients with unstable renal function, e.g. those with acute kidney injury, the eGFR may not accurately reflect actual GFR. Performed By: #### 1 920-8, 1742-6, 3094-0, 20921-5 ####[facility] [id number] [place] [address] [place] ESR Westergren method (Bld) [Velocity]on 06-20-2025 ESR (Bld) [Velocity] 9 mm/h Normal 0-20 [facility] Comment on above: Order Comment: Jodi perez Type: BLOOD SPECIMENOrdering Facility: [facility] Address: [address] [place] [address] Performed By: #### 4 537-7 ####[facility]CLIA [id number] [place] [address] [place] ALT SerPl-cCncon 01-09-2025 ALT [Catalytic activity/Vol] 17 U/L Normal 7-38 [facility] Comment on above: Order Comment: Jodi perez Type: BLOOD SPECIMEN [facility] Address: [address] [place] [address] Performed By: #### 1 988-5, 42225-1, 1920-8, 3094-0, 1742-6 #### [facility] CLIA [id number] [address] [place] [address] [place] AST SerPl-cCncon 01-09-2025 AST [Catalytic activity/Vol] 28 U/L Normal 13-35 [facility] Comment on above: Order Comment: Jodi perez Type: BLOOD SPECIMEN [facility] Address: [address] [place] [address] Performed By: #### 1 988-5, 90845-5, 1919-8, 3094-0, 1742-6 #### [facility] CLIA [id number] [address] [place] [address] [place] BUN SerPl-mCncon 01-09-2025 Urea nitrogen [Mass/Vol] 8 mg/dL Normal 7- [facility] Comment on above: Order Comment: Speci men Type: BLOOD SPECIMEN [facility] Address: [address] [place] [address] Performed By: #### 1 988-5, 66895-8, 8, 3094-0, 1742-6 #### [facility] CLIA [id number] [address] [place] [address] [place] CBC W Auto Differential pane l (Bld)on 01-09-2025 Basophils (Bld) [#/Vol] 0.10 10*3/uL Normal <0.11 [facility] Comment on above: Order Comment: Speci men Type: BLOOD SPECIMENOrdering Facility: [facility] Address: [address] [place] [address] Performed By: #### 5 7021-8, 7-7 ####[facility] LABCLIA [id number] [place] [address] [place] Basophils/100 WBC (Bld) 1.5 % Normal [facility] Comment on above: Order Comment: Speci men Type: BLOOD SPECIMENOrdering Facility: [facility] Address: [address] [place] [address] Performed By: #### 5 7021-8, 4537-7 ####[facility] LABCLIA [id number] [place] [address] [place] Differential cell count method Nom (Bld) Auto Normal [facility] Comment on above: Order Comment: Speci men Type: BLOOD SPECIMENOrdering Facility: [facility] Address: [address] [place] [address] Performed By: #### 5 7021-8, 4536-7 ####[facility]CLIA [id number] [place] [address] [place] Eosinophils (Bld) [#/Vol] 0.22 10*3/uL Normal <0.46 [facility] Comment on above: Order Comment: Speci men Type: BLOOD SPECIMENOrdering Facility: [facility] Address: [address] [place] [address] Performed By: #### 5 7021-8, 4536-7 ####[facility] LABIA [id number] [place] [address] [place] Eosinophils/100 WBC (Bld) 3.3 % Normal [facility] Comment on above: Order Comment: Speci men Type: BLOOD SPECIMENOrdering Facility: [facility] Address: [address] [place] [address] Performed By: #### 5 7021-8, 4536-7 ####[facility] LABIA [id number] [place] [address] [place] Erythrocyte distribution width (RBC) [Ratio] 13.2 % Normal 11.5-15.0 [facility] Comment on above: Order Comment: Speci men Type: BLOOD SPECIMENOrdering Facility: [facility] Address: [address] [place] [address] Performed By: #### 5 7021-8, 4536-7 ####[facility] LABIA [id number] [place] [address] [place] Hematocrit (Bld) [Volume fraction] 40.2 % Normal 36.0-46.0 [facility] Comment on above: Order Comment: Speci men Type: BLOOD SPECIMENOrdering Facility: [facility] Address: [address] [place] [address] Performed By: #### 5 7021-8, 4536-7 ####[facility]CLIA [id number] [place] [address] [place] Hemoglobin (Bld) [Mass/Vol] 13.4 g/dL Normal 11.5-15.5 [facility] Comment on above: Order Comment: Speci men Type: BLOOD SPECIMENOrdering Facility: [facility] Address: [address] [place] [address] Performed By: #### 5 7021-8, 4536-7 ####[facility]CLIA [id number] [place] [address] [place] Immature granulocytes (Bld) [#/Vol] 10*3/uL Normal <0.10 [facility] Comment on above: Order Comment: Speci men Type: BLOOD SPECIMENOrdering Facility: [facility] Address: [address] [place] [address] Performed By: #### 5 7021-8, 4536-7 ####[facility]CLIA [id number] [place] [address] [place] Immature granulocytes/100 WBC (Bld) 0.1 % Normal [facility] Comment on above: Order Comment: Speci men Type: BLOOD SPECIMENOrdering Facility: [facility] Address: [address] [place] [address] Performed By: #### 5 7021-8, 4536-7 ####[facility] LABCLIA [id number] [place] [id number] [place] Lymphocytes (Bld) [#/Vol] 1.54 10*3/uL Normal 1.00-4.00 [facility] Comment on above: Order Comment: Speci men Type: BLOOD SPECIMENOrdering Facility: [facility] Address: [address] [place] [address] Performed By: #### 5 7021-8, 4536-7 ####[facility]CLIA [id number] [place] [address] [place] Lymphocytes/100 WBC (Bld) 23.1 % Normal [facility] Comment on above: Order Comment: Speci men Type: BLOOD SPECIMENOrdering Facility: [facility] Address: [address] [place] [address] Performed By: #### 5 7021-8, 4537-7 ####[facility]CLIA [id number] [place] [address] [place] MCH (RBC) [Entitic mass] 30.2 pg Normal 26.0-34.0 [facility] Comment on above: Order Comment: Speci men Type: BLOOD SPECIMENOrdering Facility: [facility] Address: [address] [place] [address] Performed By: #### 5 7021-8, 4537-7 ####[facility]CLIA [id number] [place] [address] [place] MCHC (RBC) [Mass/Vol] 33.3 g/dL Normal 30.5-36.0 [facility] Comment on above: Order Comment: Speci men Type: BLOOD SPECIMENOrdering Facility: [facility] Address: [address] [place] [address] Performed By: #### 5 7021-8, 4537-7 ####[facility] LABIA [id number] [place] [address] [place] MCV (RBC) [Entitic vol] 90.5 fL Normal 80.0-100.0 [facility] Comment on above: Order Comment: Speci men Type: BLOOD SPECIMENOrdering Facility: [facility] Address: [address] [place] [address] Performed By: #### 5 7021-8, 4537-7 ####[facility]CLIA [id number] [place] [address] [place] Monocytes (Bld) [#/Vol] 0.53 10*3/uL Normal <0.87 [facility] Comment on above: Order Comment: Speci men Type: BLOOD SPECIMENOrdering Facility: [facility] Address: [address] [place] [address] Performed By: #### 5 7021-8, 7 ####[facility]CLIA [id number] [place] [address] [place] Monocytes/100 WBC (Bld) 7.9 % Normal [facility] Comment on above: Order Comment: Speci men Type: BLOOD SPECIMENOrdering Facility: [facility] Address: [address] [place] [address] Performed By: #### 5 7021-8, 7 ####[facility]CLIA [id number] [place] [address] [place] Neutrophils (Bld) [#/Vol] 4.28 10*3/uL Normal 1.45-7.50 [facility] Comment on above: Order Comment: Speci men Type: BLOOD SPECIMENOrdering Facility: [facility] Address: [address] [place] [address] Performed By: #### 5 7021-8, 7 ####[facility]CLIA [id number] [place] [address] [place] Neutrophils/100 WBC (Bld) 64.1 % Normal [facility] Comment on above: Order Comment: Speci men Type: BLOOD SPECIMENOrdering Facility: [facility] Address: [address] [place] [address] Performed By: #### 5 7021-8, 7 ####[facility]CLIA [id number] [place] [address] [place] Nucleated RBC (Bld) [#/Vol] 10*3/uL Normal <0.01 [facility] Comment on above: Order Comment: Speci men Type: BLOOD SPECIMENOrdering Facility: [facility] Address: [address] [place] [address] Performed By: #### 5 7021-8, 7-7 ####[facility] LABIA [id number] [place] [address] [place] Nucleated RBC/100 WBC (Bld) [Ratio] 0.0 /100 WBC Normal [facility] Comment on above: Order Comment: Speci men Type: BLOOD SPECIMENOrdering Facility: [facility] Address: [address] [place] [address] Performed By: #### 5 7021-8, 453-7 ####[facility] LABIA [id number] [place] [address] [place] Platelet mean volume (Bld) [Entitic vol] 10.9 fL Normal 9.0-12.7 [facility] Comment on above: Order Comment: Speci men Type: BLOOD SPECIMENOrdering Facility: [facility] Address: [address] [place] [address] Performed By: #### 5 7021-8, 4536-7 ####[facility]IA [id number] [place] [address] [place] Platelets (Bld) [#/Vol] 196 10*3/uL Normal 150-400 [facility] Comment on above: Order Comment: Speci men Type: BLOOD SPECIMENOrdering Facility: [facility] Address: [address] [place] [address] Performed By: #### 5 7021-8, 7-7 ####[facility]IA [id number] [place] [address] [place] RBC (Bld) [#/Vol] 4.44 10*6/uL Normal 3.90-5.20 [facility] Comment on above: Order Comment: Speci men Type: BLOOD SPECIMENOrdering Facility: [facility] Address: [address] [place] [address] Performed By: #### 5 7021-8, 4537-7 ####[facility] [id number] [place] [address] [place] WBC (Bld) [#/Vol] 6.68 10*3/uL Normal 3.70-11.00 [facility] Comment on above: Order Comment: Speci men Type: BLOOD SPECIMENOrdering Facility: [facility] Address: [address] [place] [address] Performed By: #### 5 7021-8, 4537-7 ####[facility] [id number] [address] [place] CNOVon 01-09-2025 CNOV Office Visit ([place] ) NIKKI TORO ([id number]) 1955 F Date Time Provider Department 01/09/25 2:20 PM GINNY COOPER During your visit today, we recorded the following information about you: Ginny Cooper MD 01/09/2025 2:47 PM Signed MD Nikki Box January 09, 2025 Referring Provider: PCP: Alyssa Philip MD Chief Complaint: Patient presents with: Recheck Background Rheumatologic History: She has been dealing with chronic mild joint pain for years. However, over the past 4 months, the pain becomes much more intense. The pain is mainly located in her joints, including this, MCPs, PIPs, elbows, shoulders, knees and ankles. She describes morning pain although this does not happen every day. Also describes morning stiffness that can last for many hours. She does describe gelling phenomena and states that physical inactivity can aggravate the pain (even though too much physical activities can aggravate the pain as well). She has a long history of skin eczema but no history of psoriasis. She has been seen by her local doctor who prescribes meloxicam. Meloxicam helps with her pain significantly. Review of systems is positive for hair loss, sicca and intermittent dysphagia. The patient denies RP, oral ulcer, malar, pleurisy, diarrhea, photosensitivity, uveitis. The patient denies family history of RA, SLE, , psoriasis, IBD, uveitis, other autoimmune diseases. Labs from outside hospital RF + CCP neg CRP 6 ESR normal SUZIE + XR osteoarthritic changes The diagnosis of seropositive rheumatoid arthritis is made based on the presence of true inflammatory arthritis (examination plus elevated CRP) in symmetric pattern plus positive rheumatoid factor. I think that she also has baseline osteoarthritis based on the changes observed on x-rays. I started HCQ. Since she was doing well with meloxicam, I did not think that she would need low-dose steroid as a bridging therapy. I continued meloxicam daily. F/U 11/13/20 She misunderstood me and is taking Plaquenil only 200 mg daily. However, she is doing significantly better. Pain and swelling are gone. I continued Plaquenil 200 mg daily. F/U 04/01/21 Some residual inflammation on my examination. I increased Plaquenil to the standard dose of 400 mg/day. F/U 06/24/21 In remission. I continued Plaquenil 400 mg daily. F/U 12/23/21 In remission. I continued Plaquenil 400 mg daily. F/U 07/01/22 In remission. I continued Plaquenil 400 mg daily. F/U 12/29/22 In remission. I continued Plaquenil 400 mg daily. F/U 06/30/23 In remission. I continued Plaquenil 400 mg daily. F/U 01/12/24 In remission. I continued Plaquenil 400 mg daily. F/U 07/12/24 In remission. I continued Plaquenil 400 mg daily. Interim History: Patient returns for follow up, last visit 01/12/2024. She is more or less stable except for some increase in pain in her knees and hips with climbing up and down stairs. 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 Mcintosh DILATION AND CURETTAGE DXAND/THER NONOBSTETRIC Dilation AND curettage MIDLINE INSERTION/CONSULT 02/12/2018 PAST SURGICAL HISTORY OF 08/1999 bladder repair posterior repair with EVI RECTAL REPAIR W OR W/O MESH REMV CATARACT EXTRACAP,INSERT LENS TOTAL ABDOMINAL HYSTERECT W/WO RMVL TUBE OVARY 08/1999 Hysterectomy, EVI Social History Tobacco Use Smoking status: Never Smokeless tobacco: Never Vaping Use Vaping status: Never Used Substance Use Topics Alcohol use: Yes Comment: wine on occasion Drug use: Not Currently Health Maintenance Annual PCP Team Chronic Disease Visit Never done Depression Screening Never done Anxiety Screening Never done Hepatitis C Screening Never done DTaP,Tdap,Td Vaccine(1 - Tdap) Never done Mammogram Screening Never done Lipid Screening Never done Bone Density Screening Never done Diabetes Screening due on 02/17/2021 Covid-19 Vaccine() due on 05/15/2024 Advance Directive Discussion Never done Immunization History Administered Date(s) Administered COVID-19 original vaccine, full dose, monovalent (MODERNA) 09/24/2020 10/23/2020 09/11/2021 COVID-19 vaccine, age 12+ yr, bivalent (PFIZER-BIONTECH) 06/18/2022 Current Outpatient Medications Medication Sig Dispense Refill hydrOXYchloroQUINE (PLAQUENIL) 200 mg tablet Take 1 tablet by mouth two times a day. 180 tablet 3 triamcinolone acetonide (ARUNA (more content not included)... Normal [facility] CRP SerPl-mCncon 01-09-2025 CRP [Mass/Vol] 0.3 mg/dL Normal <0.9 [facility] Comment on above: Order Comment: Speci men Type: BLOOD SPECIMEN [facility] Address: [address] [place] [address] Performed By: #### 1 988-5, 79448-2, 1920-8, 3094-0, 1742-6 #### [facility] CLIA [id number] [address] [place] [address] [id number] [address] [place] Creatinine + eGFR Pnl SerPlB ldon 01-09-2025 Creatinine and Glomerular filtration rate.predicted panel (S/P/Bld) 96 mL/min/1.73m??? Normal >=60 [facility] Comment on above: Order Comment: Jodi perez Type: BLOOD SPECIMEN [facility] Address: [address] [place] [address] Result Comment: Neniat mated Glomerular Filtration Rate (eGFR) is calculated using the 2020 CKD-EPI creatinine equation. This equation utilizes serum creatinine, sex, and age as parameters. The creatinine assay has traceable calibration to isotope dilution-mass spectrometry. Refer to KDIGO guidelines for clinical interpretation. In patients with unstable renal function, e.g. those with acute kidney injury, the eGFR may not accurately reflect actual GFR. Performed By: #### 1 988-5, 55172-7, 1919-8, 3094-0, 1742-6 #### [facility] CLIA [id number] [address] [place] [address] [place] [address] [facility] Creatinine and Glomerular fi ltration rate.predicted panel (S/P/Bld)on 01-09-2025 Creatinine [Mass/Vol] 0.59 mg/dL Normal 0.58-0.96 [facility] Comment on above: Order Comment: Jodi perez Type: BLOOD SPECIMEN [facility] Address: [address] [place] [address] Performed By: #### 1 988-5, 52868-4, 1919-8, 3094-0, 1742-6 #### [facility] CLIA [id number] [address] [place] [address] [place] ESR Westergren method (Bld) [Velocity]on 01-09-2025 ESR (Bld) [Velocity] 5 mm/h Normal 0-20 [facility] Comment on above: Order Comment: Jodi perez Type: BLOOD SPECIMENOrdering Facility: [facility] Address: [address] [place] [address] Performed By: #### 5 7021-8, 4537-7 ####[facility] [id number] [address] [place] No Panel Informationon 01-09 Radiology Study observation (narrative) [facility] XR HIP LIBIA 5V PEL+ AP/LAT EA HIPon 01-09-2025 XR HIP LIBIA 5V PEL+ AP/LAT EA HIP * * *Final Report* * * DATE OF EXAM: Jan 09 2025 2:56PM CCX 5353 - XR HIP LIBIA 5V PEL+ AP/LAT EA HIP / PROCEDURE REASON: Seronegative rheumatoid arthritis (HCC) * * * * Physician Interpretation * * * * HISTORY (as given from clinical provider): Seronegative rheumatoid arthritis (HCC) . Additional history provided by the performing technologist (if any): --> pain TECHNIQUE: XR HIP LIBIA 5V PEL+ AP/LAT EA HIP COMPARISON: None RESULT: Minimal osteoarthritis of the right hip. Normal left hip. Incidental note of degenerative changes in the lumbar spine. No other significant abnormality. Car Supervisor: [employer] Transcribe Date/Time: Jan 09 2025 3:00P Dictated by : YURI PELAYO MD This examination was interpreted and the report reviewed and electronically signed by: YURI PELAYO MD on Jan 09 2025 3:01PM EST [id number] Normal [facility] XR HIP BILATERAL 5V PEL/AP/L AT EACH HIPon 01-09-2025 * * *Final Report* * * DATE OF EXAM: Jan 09 2025 2:56PM CCX 5353 - XR HIP LIBIA 5V PEL+ AP/LAT EA HIP / PROCEDURE REASON: Seronegative rheumatoid arthritis (HCC) * * * * Physician Interpretation * * * * HISTORY (as given from clinical provider): Seronegative rheumatoid arthritis (HCC) . Additional history provided by the performing technologist (if any): --> pain TECHNIQUE: XR HIP LIBIA 5V PEL+ AP/LAT EA HIP COMPARISON: None RESULT: Minimal osteoarthritis of the right hip. Normal left hip. Incidental note of degenerative changes in the lumbar spine. No other significant abnormality. Car Supervisor: [employer] Transcribe Date/Time: Jan 09 2025 3:00P Dictated by : YURI PELAYO MD This examination was interpreted and the report reviewed and electronically signed by: YURI PELAYO MD on Jan 09 2025 3:01PM [facility] DIVISION OF RADIOLOGY Provider, [facility] - 01/09/2025 * * *Final Report* * * DATE OF EXAM: Jan 09 2025 2:56PM CCX 5353 - XR HIP LIBIA 5V PEL+ AP/LAT EA HIP / PROCEDURE REASON: Seronegative rheumatoid arthritis (HCC) * * * * Physician Interpretation * * * * HISTORY (as given from clinical provider): Seronegative rheumatoid arthritis (HCC) . Additional history provided by the performing technologist (if any): --> pain TECHNIQUE: XR HIP LIBIA 5V PEL+ AP/LAT EA HIP COMPARISON: None RESULT: Minimal osteoarthritis of the right hip. Normal left hip. Incidental note of degenerative changes in the lumbar spine. No other significant abnormality. Car Supervisor: [facility] Mail Transcribe Date/Time: Jan 09 2025 3:00P Dictated by : YURI PELAYO MD This examination was interpreted and the report reviewed and electronically signed by: YURI PELAYO MD on Jan 09 2025 3:01PM [facility] XR HIP BILATERAL 5V PEL/AP/L AT EACH HIPOrdered By: [facility] Provider on 01-09-2025 [facility] XR KNEE 2V AP/LAT BILon 12-14 XR KNEE 2V AP/LAT LIBIA * * *Final Report* * * DATE OF EXAM: Jan 09 2025 2:56PM CCX 5620 - XR KNEE 2V AP/LAT LIBIA / PROCEDURE REASON: Seronegative rheumatoid arthritis (HCC) * * * * Physician Interpretation * * * * HISTORY (as given from clinical provider): Seronegative rheumatoid arthritis (HCC) . Additional history provided by the performing technologist (if any): --> BL knee pain TECHNIQUE: XR KNEE 2V AP/LAT LIBIA COMPARISON: None RESULT: Mild medial compartment osteoarthritis bilaterally No other significant abnormality. Car Supervisor: [employer] Transcribe Date/Time: Jan 09 2025 2:59P Dictated by : YURI PELAYO MD This examination was interpreted and the report reviewed and electronically signed by: YURI PELAYO MD on Jan 09 2025 3:00PM EST [id number] Normal [facility] XR Knee - bilateral AP and L ateralon 01-09-2025 * * *Final Report* * * DATE OF EXAM: Jan 09 2025 2:56PM CCX 5620 - XR KNEE 2V AP/LAT LIBIA / PROCEDURE REASON: Seronegative rheumatoid arthritis (HCC) * * * * Physician Interpretation * * * * HISTORY (as given from clinical provider): Seronegative rheumatoid arthritis (HCC) . Additional history provided by the performing technologist (if any): --> BL knee pain TECHNIQUE: XR KNEE 2V AP/LAT LIBIA COMPARISON: None RESULT: Mild medial compartment osteoarthritis bilaterally No other significant abnormality. Car Supervisor: [employer] Transcribe Date/Time: Jan 09 2025 2:59P Dictated by : YURI PELAYO MD This examination was interpreted and the report reviewed and electronically signed by: YURI PELAYO MD on Jan 09 2025 3:00PM EST DIVISION OF RADIOLOGY Provider, [facility] - 01/09/2025 * * *Final Report* * * DATE OF EXAM: Jan 09 2025 2:56PM CCX 5620 - XR KNEE 2V AP/LAT LIBIA / PROCEDURE REASON: Seronegative rheumatoid arthritis (HCC) * * * * Physician Interpretation * * * * HISTORY (as given from clinical provider): Seronegative rheumatoid arthritis (HCC) . Additional history provided by the performing technologist (if any): --> BL knee pain TECHNIQUE: XR KNEE 2V AP/LAT LIBIA COMPARISON: None RESULT: Mild medial compartment osteoarthritis bilaterally No other significant abnormality. Car Supervisor: [employer] Transcribe Date/Time: Jan 09 2025 2:59P Dictated by : YURI PELAYO MD This examination was interpreted and the report reviewed and electronically signed by: YURI PELAYO MD on Jan 09 2025 3:00PM EST [facility] T4 Free Directon 07-29-2024 T4 FREE DIRECT 1.07 ng/dL Normal 0.76-1.46 [facility] Comment on above: Performed By: #### L 506.0400, L501.9520 #### [facility] [address] [place], [place], [address] Thyroid Stim Hormone (TSH)on 07-29-2024 TSH 11.200 uIU/mL High 0.358-3.740 [facility] Comment on above: Performed By: #### L 506.0400, L501.9520 #### [facility] [address] [place], [place], [address] 3D MAMM UNILAT LT DIAGNOSTIC on 03-08-2024 3D MAMM UNILAT LT DIAGNOSTIC [place] [address] [place], [place] [address] Patient: NIKKI TORO Phone#: : [phone] Age: 68 Gender: F Pt. Type: Out Account: [id number] Location: [facility] Ordering: ALYSSA PHILIP Exam Date: 03/08/2024/14:47 Family Phys: Charge Code: [id number] Physician: [place] Order #: [id number] Dose#: PROCEDURE: LEFT DIAGNOSTIC BREAST TOMOSYNTHESIS MAMMOGRAM WITH CAD COMPARISON: [facility], 3D BILAT SCREEN, 03/07/2024, 14:26. [facility], 3D BILAT SCREEN, 02/02/2023, 11:07. INDICATIONS: Left breast asymmetry BREAST COMPOSITION: Scattered areas fibroglandular density. FINDINGS: DIAGNOSTIC CATEGORY 1--NEGATIVE NO CHANGE FROM COMPARISON ASSESSMENT. LEFT BREAST: No significant suspicious finding. No significant change has occurred. Area of asymmetry is resolved with additional imaging. RECOMMENDATIONS: ROUTINE MAMMOGRAM AND CLINICAL EVALUATION IN 12 MONTHS. PLEASE NOTE: A NORMAL MAMMOGRAM DOES NOT EXCLUDE THE POSSIBILITY OF BREAST CANCER. A CLINICALLY SUSPICIOUS PALPABLE LUMP SHOULD BE BIOPSIED. THIS FACILITY UTILIZES A REMINDER SYSTEM TO ENSURE THAT ALL PATIENTS RECEIVE REMINDER LETTERS FOR APPOINTMENTS. THIS INCLUDES REMINDERS FOR ROUTINE MAMMOGRAMS, DIAGNOSITC MAMMOGRAMS, OR OTHER BREAST IMAGING INTERVENTIONS WHEN APPROPRIATE. THIS PATIENT WILL BE PLACED IN THE APPROPRIATE REMINDER SYSTEM. Dictated by: Allison Barroso MD on 03/08/2024 at 19:00 Approved by: Allison Barroso MD on 03/08/2024 at 19:02 Normal [facility] 3D MAMM BILAT SCREENon 03-07 3D MAMM BILAT SCREEN [place] [address] Patient: NIKKI TORO Phone#: : 1955 Age: 68 Gender: F Pt. Type: Out Account: [id number] Location: [facility] Ordering: ALYSSA PHILIP Exam Date: 03/07/2024/14:26 Family Phys: Charge Code: [id number] Physician: [place] Order #: [id number] Dose#: PROCEDURE: BILATERAL SCREENING BREAST TOMOSYNTHESIS MAMMOGRAM WITH CAD COMPARISON: [facility], 3D BILAT SCREEN, 02/02/2023, 11:07. [facility], 3D BILAT SCREEN, 01/22/2022, 11:12. INDICATIONS: Screening BREAST COMPOSITION: Scattered areas fibroglandular density. FINDINGS: DIAGNOSTIC CATEGORY 0--INCOMPLETE: NEED ADDITIONAL IMAGING EVALUATION. RIGHT BREAST: No significant suspicious finding. No significant change has occurred. LEFT BREAST: FOCAL ASYMMETRY (finding without convex borders usually visible on two orthogonal views), characterized by obscured indeterminate morphology, mid-breast depth, 2 o'clock position, and 9 x 9 x 8 mm size. Additional spot compression views recommended. RECOMMENDATIONS: ADDITIONAL MAMMOGRAPHIC VIEWS REQUIRED: LEFT BREAST --We will call the patient back for additional views and issue an addendum report. PLEASE NOTE: A NORMAL MAMMOGRAM DOES NOT EXCLUDE THE POSSIBILITY OF BREAST CANCER. A CLINICALLY SUSPICIOUS PALPABLE LUMP SHOULD BE BIOPSIED. THIS FACILITY UTILIZES A REMINDER SYSTEM TO ENSURE THAT ALL PATIENTS RECEIVE REMINDER LETTERS FOR APPOINTMENTS. THIS INCLUDES REMINDERS FOR ROUTINE MAMMOGRAMS, DIAGNOSITC MAMMOGRAMS, OR OTHER BREAST IMAGING INTERVENTIONS WHEN APPROPRIATE. THIS PATIENT WILL BE PLACED IN THE APPROPRIATE REMINDER SYSTEM. Dictated by: Allison Barroso MD on 03/07/2024 at 16:44 Approved by: Allison Barroso MD on 03/07/2024 at 16:50 [facility] 12 Lead EKGon 02-29-2024 12 [facility] [address] [place] [address] 12 Lead EKG 02/29/24 0728 MR#: [id number] Acct: [id number] Name: NIKKI TORO Rep #: [id number] : 1955 68 From: Quincy Pierce MD Attending Dr: Dr. Rick Brown MD Status: DEP SD Ordering Dr: Bruno Pedersen MD Date: 02/29/24 [place] [facility] [place] F C Admitted: Test Reason : PRE OP Blood Pressure : / mmHG Vent. Rate : 066 BPM Atrial Rate : 066 BPM P-R Int : 194 ms QRS Dur : 078 ms QT Int : 402 ms P-R-T Axes : 025 -09 003 degrees QTc Int : 421 ms Normal sinus rhythm Septal infarct , age undetermined Abnormal ECG No previous ECGs available Confirmed by CARIN HILLMAN, QUINCY ([id number]), news copy editor KARMEN ASHTON ([id number]) on 03/03/2024 8:34:07 AM Referred By: Rick Brown Confirmed By:QUINCY PIERCE MD 03/03/24 0834 Date Quincy Pierce MD CC: Dr. Bruno Pedersen MD; Dr. Alyssa Philip MD; Dr. Rick Brown MD Signed Normal [facility] Basic Metabolic Profile (BMP )on 02-29-2024 BUN/CRE 16.3 RATIO Normal 10- [facility] Comment on above: Performed By: #### L 100.0500, L500.2500 #### [facility] [address] [place], [address] CA,Total 8.5 mg/dL Normal 8.5-10.1 [facility] Comment on above: Performed By: #### L 100.0500, L500.2500 #### [facility] [address] [place], [address] Chloride [Moles/Vol] 111 mmol/L High 98-107 [facility] Comment on above: Performed By: #### L 100.0500, L500.2500 #### [facility] [address] [place], [address] CO2 [Moles/Vol] 25.0 mmol/L Normal 21.0-32.0 [facility] Comment on above: Performed By: #### L 100.0500, L500.2500 #### [facility] [address] [place], [address] Creatinine [Mass/Vol] 0.61 mg/dL Normal 0.55-1.02 [facility] Comment on above: Result Comment: The validity of the calculated GFR GFRAA in patients over 70 years has not been determined. Clinical correlation is essential. Performed By: #### L 100.0500, L500.2500 #### [facility] [address] [place], [address] ECRCL 66.71 ml/min Normal [facility] Comment on above: Performed By: #### L 100.0500, L500.2500 #### [facility] [address] [place], [address] EST GFR - AA 124 mL/min Normal >60 [facility] Comment on above: Result Comment: Afri can Thai GFR Calc Performed By: #### L 100.0500, L500.2500 #### [facility] [address] [place], [address] GAP 6 Normal 5-15 [facility] Comment on above: Performed By: #### L 100.0500, L500.2500 #### [facility] [address] [place], [address] GFR/1.73 sq M.predicted among non-blacks MDRD (S/P/Bld) [Vol rate/Area] 102 mL/min/{1.73_m2} Normal >60 [facility] Comment on above: Result Comment: Non- GFR Calc Performed By: #### L 100.0500, L500.2500 #### [facility] [address] [place], [address] Glucose [Mass/Vol] 98 mg/dL Normal 74-106 [facility] Comment on above: Performed By: #### L 100.0500, L500.2500 #### [facility] [address] [place], [address] Potassium [Moles/Vol] 3.9 mmol/L Normal 3.5-5.1 [facility] Comment on above: Performed By: #### L 100.0500, L500.2500 #### [facility] [address] [place], [address] Sodium [Moles/Vol] 142 mmol/L Normal 136-145 [facility] Comment on above: Performed By: #### L 100.0500, L500.2500 #### [facility] [address] [place], [address] Urea nitrogen [Mass/Vol] 10 mg/dL Normal 7-18 [facility] Comment on above: Performed By: #### L 100.0500, L500.2500 #### [facility] [address] [place], [address] CBC-Complete Blood Cnt No Di ffon 02-29-2024 Erythrocyte distribution width (RBC) [Ratio] 13.1 % Normal 11.6-14.6 [facility] Comment on above: Performed By: #### L 100.0500, L500.2500 #### [facility] [address] [place], [address] Hematocrit (Bld) [Volume fraction] 41.5 % Normal 37-47 [facility] Comment on above: Performed By: #### L 100.0500, L500.2500 #### [facility] [address] [place], [address] Hemoglobin (Bld) [Mass/Vol] 13.4 g/dL Normal 12.0-15.0 [facility] Comment on above: Performed By: #### L 100.0500, L500.2500 #### [facility] [address] [place], [address] MCH (RBC) [Entitic mass] 29.8 pg Normal 27.0-32.0 [facility] Comment on above: Performed By: #### L 100.0500, L500.2500 #### [facility] [address] [place], [address] MCHC (RBC) [Mass/Vol] 32.3 g/dL Normal 32-36 [facility] Comment on above: Performed By: #### L 100.0500, L500.2500 #### [facility] [address] [place], [address] MCV (RBC) [Entitic vol] 92.4 fL Normal 81-99 [facility] Comment on above: Performed By: #### L 100.0500, L500.2500 #### [facility] [address] [place], [address] Platelet mean volume (Bld) [Entitic vol] 10.0 fL Normal 6.2-12.0 [facility] Comment on above: Performed By: #### L 100.0500, L500.2500 #### [facility] [address] [place], [address] Platelets (Bld) [#/Vol] 253 10*3/uL Normal 150-450 [facility] Comment on above: Performed By: #### L 100.0500, L500.2500 #### [facility] [address] [place], [address] RBC (Bld) [#/Vol] 4.49 10*6/uL Normal 4.2-5.4 [place] Comment on above: Performed By: #### L 100.0500, L500.2500 #### [facility] [address] [place], [address] RDW SD 44.5 fl High 35.1-43.9 [facility] Comment on above: Performed By: #### L 100.0500, L500.2500 #### [facility] [address] [place], [address] WBC (Bld) [#/Vol] 5.0 10*3/uL Normal 4.4-11.0 [facility] Comment on above: Performed By: #### L 100.0500, L500.2500 #### [facility] [address] [facility] [place], [address] MR/POSTOP.ANEon 02-29-2024 MR/POSTOP.[facility] Medical Records Department [address] [place] [address] Anesthesia Postop Eval I 02/29/24 0937 MR#: [id number] Acct: [id number] Name: NIKKI TORO Rep #: [id number] : 1955 68 From: Pascual Correa MD PCP: Dr. Alyssa Philip MD Status:REG SD Y Race: C Location: [place] [address] Anesthesia: Postop Eval I Current Vital Signs Temperature: 97.6 F Pulse Rate: 71 Blood Pressure: 107/71 Respiratory Rate: 16 Pulse Ox: 96 Assessment Airway patent: Yes Spontaneous unlabored respirations: Yes Mental status: Awake nausea: No Vomiting: No Anesthesia Complication: No Fluid Hydration Crystalloid volume administer (ml): 400 Total IV fluid infused: 400 Progress Note Anesthesia document: Postop Eval 1 completed: Yes 02/29/24 0939 Date Pascual Correa MD Cosigner Signature: Date CC: Signed Normal [facility] MR/[id number] 02-29-2024 MR/POSTOPAN2 [facility] Medical Records Department [address] [facility] [place] [address] Anesthesia Postop Eval II 02/29/24 1236 MR#: [id number] Acct: [id number] Name: NIKKI TORO Rep #: [id number] : 1955 68 From: Bruno Pedersen MD PCP: Dr. Alyssa Philip MD Status:[facility] Y Race: C [place] [facility] [place]est[place] Postop Eval I Sum Postop Eval Completion status Anesthesia document: Postop Eval 1 completed: Yes Anesthesia Postop Eval I Summary Anesthesia Postop Eval I Summary: Anesthesia Postop Eval I: Assessment Summary Airway patent Yes 02/29/24 09:39 Spontaneous unlabored Yes 02/29/24 09:39 respirations Mental status Awake 02/29/24 09:39 nausea No 02/29/24 09:39 Vomiting No 02/29/24 09:39 Anesthesia Postop Eval I: Fluid Summary Crystalloid volume administer 400 02/29/24 09:39 (ml) Colloids volume administered ( ml) Blood Product volume administered (ml) Total IV fluid infused 400 02/29/24 09:39 Anesthesia Postop Eval I: Summary Notes Anesthesia Complication No 02/29/24 09:39 Anesthesia Complication Comment: Post-operative progress note Anesthesia: Postop Eval II Evaluation Mental status: Awake Pain Level: 0 nausea: No Vomiting: No Complications Anesthesia Complication: No 02/29/24 1236 Date Bruno Pedersen MD Cosigner Signature: Date CC: Signed [facility] Operative Reporton Operative Report [facility] Medical Records Department [address] [place] [address] Operative Report 02/29/24 0903 MR#: [id number] Acct: [id number] Name: NIKKI TORO Rep #: [id number] : 1955 68 From: Rick Brown MD PCP: Dr. Alyssa Philip MD Status:[facility] Location: [place] [address] Report of Operation Date of Procedure: 02/29/24 Pre-Operative Diagnosis: chronic serous otitis media Post-Operative Diagnosis: same Surgery/Procedure Performed:: Bilateral myringotomy with tubes Surgeon: Rick Brown Type of Anesthesia: General Anesthesiologist: Pascual Correa Estimated Blood Loss (mL): minimal Description of Procedure: The patient was taken to the operating room on 02/29/2024. The patient was placed in the supine position on the operating room table. The patient was given sufficient general anesthesia. The operating microscope was used throughout the entire case. A speculum was inserted into the patient's left ear. Cerumen was removed using a curette. An incision was placed in the anterior inferior quadrant of the tympanic membrane. Fluid was suctioned from the middle ear space with a #5 suction. A Mary Bobin tube was placed without difficulty. Antibiotic drops were instilled into the patient's ear. Next, a speculum was inserted into the patient's right ear. Cerumen was removed using a curette. An incision was placed in the anterior inferior quadrant of the tympanic membrane. A mary bobin tube was placed without difficulty. Antibiotic drops were instilled into the patient's ear. The patient was then awoken. They were brought to the recovery room in stable condition. Blood loss minimal, replacement none. sponge, needle and instrument counts correct at the end of the procedure. 02/29/24917 Cosigner Signature (if applicable): CC: Dr. Alyssa Philip MD; Dr. 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 Diagnostic cerebral angiogram showed no residual on 07/16/2021. TECHNIQUE: Routine brain MRI protocol without and with contrast including diffusion images. MQ: MRBWOW_2 Contrast: 12 mL Dotarem IV COMPARISON: 06/13/2021 RESULT: Acute Change: There is no evidence of restricted diffusion to suggest an acute infarct. Mass Lesion/ Mass Effect: No evidence of an intracranial mass or extra-axial fluid collection. Linear and punctate juxtacortical susceptibility artifact and adjacent encephalomalacia along the left precentral sulcus without associated pathologic enhancement. Stable appearance compared to 06/13/2021. No significant mass effect. Chronic Change: The white matter is within normal limits of signal intensity for age. Parenchyma: No significant volume loss for age. The brain parenchyma is otherwise within normal limits of signal intensity and morphology. Ventricles: Normal caliber and morphology. Skull Base: Hypothalamic and pituitary region are grossly normal. Craniocervical junction is normal. No significant marrow replacement process. Vasculature: Major intracranial arterial structures, and dural venous sinuses show typical flow void, suggesting patency by spin echo criteria. Other: The visualized paranasal sinuses and mastoid air cells are clear. The orbits and extracranial soft tissues are unremarkable. IMPRESSION: Stable appearance of the brain since 06/13/2021 without evidence of recurrent dural AV fistula. 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 TECHNIQUE: MRI of the brain without and with contrast. MRA brain without and with contrast. Intracranial 3D bjze-mr-fwusoh MRA with post-processing performed at the modality and 2D multiplanar and 3D maximum intensity projections were created, reviewed and archived. Contrast: 12 mL Dotarem IV MQ: MRAB_3 COMPARISON: 02/12/2018 MRI of the brain and MRI imaging dated 08/26/2018. RESULT: MRI brain: Acute Change: No large acute hemispheric infarct. Diffusion abnormality present within the left parasagittal pascale anteriorly is likely artifactual. Hemorrhage: Faint magnetic susceptibility representing remote blood degradation byproducts present within the anterior aspect of the left precentral gyrus. Mass Lesion/ Mass Effect: No evidence of an intracranial mass or extra-axial fluid collection. No significant mass effect. Chronic Change: Progression of cortically based FLAIR hyperintensity along the left precentral gyrus measuring 1.1 transverse by 0.5 AP centimeters. No abnormal enhancement following contrast administration. Parenchyma: No significant volume loss for age. The brain parenchyma is otherwise within normal limits of signal intensity and morphology. Ventricles: Normal caliber and morphology. Skull Base: Hypothalamic and pituitary region are grossly normal. Craniocervical junction is normal. No significant marrow replacement process. Vasculature: Major intracranial arterial structures, and dural venous sinuses show typical flow void, suggesting patency by spin echo criteria. Other: The visualized paranasal sinuses and mastoid air cells are clear. The orbits and extracranial soft tissues are unremarkable. MRA brain: The petrous, cavernous, and supraclinoid internal carotid arteries are patent. Anterior cerebral arteries and middle cerebral arteries are patent. Intracranial vertebral arteries, basilar artery, and posterior cerebral arteries are patent. No vessel cutoffs or aneurysms are identified. No abnormal enhancement or abnormal vascularity in the posterior left frontal region. IMPRESSION: No acute findings. No large vessel occlusion or high-grade stenosis. There is progression of T2 FLAIR change along the left precentral gyrus with no abnormal enhancement or associated abnormal vascularity which could reflect posttreatment change. Continued follow-up recommended to exclude recurrent vascular malformation. 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 TECHNIQUE: MRI of the brain without and with contrast. MRA brain without and with contrast. Intracranial 3D [id number]-qghvpm MRA with post-processing performed at the modality and 2D multiplanar and 3D maximum intensity projections were created, reviewed and archived. Contrast: 12 mL Dotarem IV MQ: MRAB_3 COMPARISON: 02/12/2018 MRI of the brain and MRI imaging dated 08/26/2018. RESULT: MRI brain: Acute Change: No large acute hemispheric infarct. Diffusion abnormality present within the left parasagittal pascale anteriorly is likely artifactual. Hemorrhage: Faint magnetic susceptibility representing remote blood degradation byproducts present within the anterior aspect of the left precentral gyrus. Mass Lesion/ Mass Effect: No evidence of an intracranial mass or extra-axial fluid collection. No significant mass effect. Chronic Change: Progression of cortically based FLAIR hyperintensity along the left precentral gyrus measuring 1.1 transverse by 0.5 AP centimeters. No abnormal enhancement following contrast administration. Parenchyma: No significant volume loss for age. The brain parenchyma is otherwise within normal limits of signal intensity and morphology. Ventricles: Normal caliber and morphology. Skull Base: Hypothalamic and pituitary region are grossly normal. Craniocervical junction is normal. No significant marrow replacement process. Vasculature: Major intracranial arterial structures, and dural venous sinuses show typical flow void, suggesting patency by spin echo criteria. Other: The visualized paranasal sinuses and mastoid air cells are clear. The orbits and extracranial soft tissues are unremarkable. MRA brain: The petrous, cavernous, and supraclinoid internal carotid arteries are patent. Anterior cerebral arteries and middle cerebral arteries are patent. Intracranial vertebral arteries, basilar artery, and posterior cerebral arteries are patent. No vessel cutoffs or aneurysms are identified. No abnormal enhancement or abnormal vascularity in the posterior left frontal region. IMPRESSION: No acute findings. No large vessel occlusion or high-grade stenosis. There is progression of T2 FLAIR change along the left precentral gyrus with no abnormal enhancement or associated abnormal vascularity which could reflect posttreatment change. Continued follow-up recommended to exclude recurrent vascular malformation. Car Supervisor: [facility] Transcribe Date/Time: Jun 13 2021 5:01P Dictated by : MIKE SAENZ MD This examination was interpreted and the report reviewed and electronically signed by: MIKE SAENZ MD on Jun 13 2021 6:46PM EST [id number] Normal [facility] SUZIE by IFAon 05-31-2020 SUZIE Pattern SPCK Normal [facility] Comment on above: Performed By: #### R F #### [facility] [address] [place] [phone] #### CCP, ANAIFS #### [facility] Immuno [facility] [address] [place] [phone] SUZIE Titer D640 Abnormal Negative [facility] Comment on above: Performed By: #### R F #### [facility] [address] [place] [phone] #### CCP, ANAIFS #### [facility] [address] [place] [phone] Nuclear Ab IF (S) [Titer] Positive Abnormal Negative [facility] Comment on above: Performed By: #### R F #### [facility] [address] [place] [phone] #### CCP, ANAIFS #### [facility] [address] [place] [phone] CCP Antibody, IgGon 05-30-20 20 CCP Antibody, IgG <15 Normal <20 [facility] Comment on above: Performed By: #### R F #### [facility] Routine Lab [address] [place] [address] #### CCP, ANAIFS #### [facility] [address] [place] [address] Rheumatoid Factoron 05-29-20 20 Rheumatoid Factor 54 IU/mL High <16 [facility] Comment on above: Performed By: #### R F #### [facility] Routine Lab [address] [place] [address] #### CCP, ANAIFS #### [facility] [address] [place] [address] BMPon 02-11-2018 Anion gap 10 mmol/L Normal 5-16 [facility] Comment on above: Order Comment: Campu s: M Performed By: #### L 500.09981, L500.99543 ####[facility] [id number] [place] [address] 67318Sg# [phone] BUN/Creatinine Ratio 18 mg/mg [facility]: Order Comment: Campu s: M Performed By: #### L 500.65276, L500.58148 ####[facility] [facility] [id number] [place], [place] [address]Bi# [phone] Calcium 8.5 mg/dL Normal 8.5-10.1 [facility] [place] Comment on above: Order Comment: Campu s: M Performed By: #### L 500.28594, L500.01231 ####[facility] [id number] [place], [place] [address]Au# [phone] Chloride 108 mmol/L High 98-107 [facility] [place] Comment on above: Order Comment: Campu s: M Performed By: #### L 500.10169, L500.95044 ####[facility] [id number] [place], [place] [address]Jn# [phone] CO2 23 mmol/L Normal 21-32 [facility] [place] Comment on above: Order Comment: Campu s: M Performed By: #### L 500.72377, L500.66364 ####[facility] [id number] [place], [place] [address]Im# [phone] Creatinine 0.619 mg/dL Normal 0.510-0.950 [facility] Comment on above: Order Comment: Campu s: M Result Comment: Felicita ents receiving either N-Acetylcysteine (NAC) orMetamizole prior to venipuncture, may have falsely depressedresults. Performed By: #### L 500.68038, L5.85945 ####[facility] [id number] [place], [place] [address]Vu# [phone] Glucose mass conc 84 mg/dL Normal 70-100 [facility] [place] Comment on above: Order Comment: Campu s: M Result Comment: 70-1 00- Normal Fasting; 100-125 Impaired Fasting; greaterthan 126 on more than one result- Diabetes. ADA guidelines.Results may be falsely elevated after the administration ofSulfapyridine.Results may be falsely depressed after the administration ofSulfasalazine. Performed By: #### L 500.08412, L5.42327 ####[facility] [id number] [place], [place] [address]At# [phone] Potassium molar conc 4.0 mmol/L Normal 3.5-5.1 [facility] Comment on above: Order Comment: Campu s: M Performed By: #### L 500.30627, L500.27671 ####[facility] [id number] [place], [place] [address]Hq# [phone] Sodium 141 mmol/L Normal 136-145 [facility] Comment on above: Order Comment: Campu s: M Performed By: #### L 500.12899, L500.19643 ####[facility] [id number] [place], [place] [address]Ou# [phone] Urea nitrogen 11 mg/dL Normal 7-26 [facility] [place] Comment on above: Order Comment: Campu s: M Performed By: #### L 500.05198, L500.25395 ####[facility] [id number] [place], [place] [address]Rz# [phone] Anion gap 7 mmol/L Normal 5-16 [facility] [place] Comment on above: Order Comment: Campu s: M Performed By: #### L 500.28547, L500.88066 ####[facility] [id number] [place] [address]Uu# [phone] BUN/Creatinine Ratio 20 mg/mg [facility] 15-24 [facility]: Order Comment: Campu s: M Performed By: #### L 500.40801, L500.14500 ####[facility] [id number] [place] [address]Zn# [phone] Calcium 8.3 mg/dL Low 8.5-10.1 [facility] [place] Comment on above: Order Comment: Campu s: M Performed By: #### L 500.66401, L500.86251 ####[facility] [id number] [place], [place] [address]Vb# [phone] Chloride 109 mmol/L High 98-107 [facility] [place] Comment on above: Order Comment: Campu s: M Performed By: #### L 500.61177, L500.95086 ####[facility] [id number] [place], [place] [address]Dl# [phone] CO2 25 mmol/L Normal 21-32 [facility] [place] Comment on above: Order Comment: Campu s: M Performed By: #### L 500.61585, L500.43204 ####[facility] [id number] [place], [place] [address]Tk# [phone] Creatinine 0.555 mg/dL Normal 0.510-0.950 [facility] [place] Comment on above: Order Comment: Campu s: M Result Comment: Felicita ents receiving either N-Acetylcysteine (NAC) orMetamizole prior to venipuncture, may have falsely depressedresults. Performed By: #### L 500.46527, L500.00019 ####[facility] [id number] [place], [place] [address]Hw# [phone] Glucose mass conc 89 mg/dL Normal 70-100 [facility] [place] Comment on above: Order Comment: Campu s: M Result Comment: 70-1 00- Normal Fasting; 100-125 Impaired Fasting; greaterthan 126 on more than one result- Diabetes. ADA guidelines.Results may be falsely elevated after the administration ofSulfapyridine.Results may be falsely depressed after the administration ofSulfasalazine. Performed By: #### L 500.29165, L500.74796 ####[facility] [id number] [place], [place] [address]Dk# [phone] Potassium molar conc 3.6 mmol/L Normal 3.5-5.1 [facility] [place] Comment on above: Order Comment: Campu s: M Performed By: #### L 500.87753, L500.53664 ####[facility] [id number] [place] [address]Ft# [phone] Sodium 141 mmol/L Normal 136-145 [facility] Comment on above: Order Comment: Campu s: M Performed By: #### L 500.37249, L500.13513 ####[facility] [id number] [place] [address]Vu# [phone] Urea nitrogen 11 mg/dL Normal 7-26 [facility] Comment on above: Order Comment: Campu s: M Performed By: #### L 500.65071, L500.44985 ####[facility] [id number] [place] [address]Nv# [phone] DISCH.SUMon 02-11-2018 DISCH.SUM [facility] Patient Name: MIRIAM TORO [facility] Date of : [address] [address] Unit Number: [id number] Number: [id number] Summary Patient Status: ADM INAttending Doctor: Cj Ron MDService Date: 02/11/18 1504Discharge SummaryAdmit DateAdmission Date Time: 02/10/18 1400Anticipated Discharge Date 02/11/18inal Dx/Problem List1. New onset seizureAcute2. HypothyroidismChronicChief Complaint/HPIWitnessed seizureReason for AdmissionNew onset seizureHospital Pzdmws50 years old female with history of hypothyroidism has been experiencing rightupper extremity twitching for the last few weeks and also she had hearing trouble in herright ear, she was seen by ENT and had brain MRI performed 2-3 weeks ago showed some kindof vascular loop around cranial nerve VIII, patient yesterday was gardening when her rightupper extremity twitching wouldn't stop and when she went back home to prepare breakfastwhen her family was noticing her eyes are rolling backward, [facility] was witnessed with 2 spells of seizure and was transferred to [facility] for neurology evaluation, head CT was completed and came back negative, patientwas started on Keppra and seizure prophylaxis, family [facility].Vital SignsVital Signs (Last)ResultDate TimePulse Pw1611/ 1109B/P121/7405/31 5675Rpyx17.305/31 3409Cxtzn3395/31 7239Yvdc6938/31 1109Pertinent Physical FindingsHEENT: Normocephalic/atraumatic, sclerae anicteric.Neck: Supple no JVDCardiovascular: Regular sounds with no murmurs rubs or gallops.Lungs: Clear to auscultation and percussion.Abdomen: Soft nontender bowel sounds present.Extremities: No edema with intact pulsesCNS: Alert awake oriented 3, no focal deficit.Skin: Warm with no rash.Labs/ImagingLab 72hr (CBC/BMP Fishbone)02/11/18 0459:Thyroxine (T4) 11.5, T3 Uptake 38.0, TSH, Ultra Sensitive 0.041 L02/11/18 0131:[Embedded Image Not Available]Anion Gap 7, Est GFR ( Amer) Greater than 60, Est GFR (Non-Af Amer) Greater than 60, BUN/Creatinine Ratio 20, Glucose 89, Total Calcium 8.3 LPrescriptionsContinue taking these medications:Levothyroxine Sodium* (Synthroid 0.1 MG Tab*) 100 MCG TABLET0.1 MILLIGRAM ORAL ONCE DAILY BEFORE MEALSReferralsOrdered ReferralsMedicine In Two-Three WeeksFor Providers:Torey Azar MD[address] [id number] Condition: StableDisposition [facility]CFPhys Discharge Time Incur(Min) 25DisclaimerThis dictation was created using voice recognition software.Phonetic and/or minor grammatical errors may exist.eSign Date and TimeStanislav Cazares MD Verified/Reviewed by 02/11/18 1513 [facility] Discharge Summary [facility] GFR ESTon 02-11-2018 IF AMER Greater than 60 [facility] Comment on above: Order Comment: Campu s: M Performed By: #### L 500.28199, L500.09209 ####[facility] [id number] [place] [address]Jr# [phone] IF non-AFR AMER Greater than 60 [facility] Comment on above: Order Comment: Campu s: M Performed By: #### L 500.76595, L500.15157 ####[facility] [id number] [place] [address]Ki# [phone] IF AMER Greater than 60 [facility] Comment on above: Order Comment: Campu s: M Performed By: #### L 500.50168, L500.41539 ####[facility] [id number] [place] [address]Hx# [phone] IF non-AFR AMER Greater than 60 [facility] Comment on above: Order Comment: Campu s: M Performed By: #### L 500.69129, L500.37508 ####[facility] [id number] [place], [place] [address]Ou# [phone] THYROID PRO/TSHon 02-11-2018 T3 UP 38.0 % Normal 30.0-39.0 [facility] Comment on above: Order Comment: Teodora castorena: M Performed By: #### L 500.89357 ####[facility] [id number] [place], [place] [address]Uy# [phone] T4 11.5 UG/DL Normal 4.8-13.9 [facility] Comment on above: Order Comment: Teodora castorena: M Result Comment: RESU LTS MAY BE FALSELY ELEVATED AFTER THE ADMINISTRATION OFSULFASALAZINE. Performed By: #### L 500.03445 ####[facility] [id number] [place], [place] [address]Mj# [phone] Thyroid stimulating hormone (TSH) 0.041 UIU/ML Low 0.358-3.740 [facility] Comment on above: Order Comment: Teodora castorena: Simeon Result Comment: 3rd generation ultra sensitive TSH Performed By: #### L 500.25562 ####[facility] [id number] [place], [place] [address]Le# [phone] HP.IMS.ADMon 02-10-2018 Admission-H&P Normal [facility] HP.IMS.AD[place] [facility] Patient Name: MIRIAM TORO [facility] Date of : [address] [address] Unit Number: [id number] Number: [id number] Patient Status: ADM INAttending Doctor: Cj Ron MDService Date: 02/10/18 2006History of Present IllnessSource of Information Family Member, PatientChief Complaint/Present Illness:New-onset seizure witnessedHistory of Present IllnessThe patient is a 62-year-old female who has developed right arm twitching and unable tocontrol her right arm movements on and off for the past few weeks. Occasionally her eyewill twitch with this and it will last for 10-20 seconds.Today while she was out gardening in her yard her symptoms would not resolve so shewent into the house and started fixing breakfast, when her family noticed her eyes to amara her head. She was taken to her local hospital at [facility], where she had aCT scan of the brain performed. This was normal.While in the emergency room she actually had a witnessed seizure that resolvedspontaneously. Approximately an hour later she again had a seizure so was given Ativan 1mg IV and a loading dose of Keppra.The patient reports that approximately 6 weeks ago she developed hearing loss in theright ear, so her PMD sent her to an ENT who ordered an MRI. 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 She will be admitted overnightfor observation for further workup and to be seen by neurology.Past Medical/Surgical HxPast Medical HistoryPast medical history is only remarkable for hypothyroid thyroidismPast Surgical HistoryNone knownFamily/Social HistoryFamily HistoryFATHER, , Age 60+; Cause: Cardiac arrest.MOTHER, , Age 60+; Cause: Natural with unknown cause.SubstancesDenies use of: Alcohol, Tobacco, Recreational Drugs.Advance DirectivesAdvance Directives Full CodeAllergies/Home MedicationsHome MedicationsLevothyroxine Sodium* (Synthroid 0.1 MG Tab*) 100 MCG TABLET 0.1 MG PO QDAYAC, Ref 0 (Reported)Entered as Reported by LAURA SCHROEDER on 02/10/18 1824Last Action: Continued on 02/10/182005 by CJ RON SReview of SystemsConstitutionalReports: Fatigue (slightly after her seizure tod). Denies: Fever, Sick Contacts, Sweats,Weakness, Weight Loss.EENTReports: Hearing Loss. Denies: Vision Change, Sore Throat, Dysphagia, Tinnitus.CardiovascularDenies : Chest Pain, Paroxysmal Nocturnal Dsyp, Palpitations, Syncope, Leg Swelling.PulmonaryDenies: Pleuritic Chest Pain, Dyspnea, Cough, Sputum, Hemoptysis.GastrointestinalDe nies: Abdominal Pain, Nausea, Vomiting, Diarrhea, Constipation, Loss of Appetite.GenitourinaryDenies: Dysuria, Hematuria, Urgency (no frequency).MusculoskeletalDen ies: Joint Pain, Joint Swelling.SkinDenies: Calf Pain, Ankle Swelling.EndocrineDenies: Cold Intolerance, Heat Intolerance, Flushing of Skin.NeuroReports: Vertigo (since admission here), Tingling, Seizures. Denies: Headache, Syncope,Dizziness, Numbness, Weakness, Difficulty with Speech, Blurry Vision, Diplopia, MemoryLoss, Confusion.PsychiatricDenies: Depression, Anxiety.Physical ExamVital SignsVital Signs (Last)ResultDate TimePulse Pd3896 1935B/P126/6505 9867Hcca66.705 1446Gkuqm6301 0634Twim7446/30 193ppearance - PE Appears well, Awake, AlertNeck - PE Normal inspection, No JVD, SuppleHEENT - PE Head atraumatic, Eyes normal inspection, PERRLA, Mucosa moistRespiratory - PE Lungs sound clear, Respirations non-laboredCardiovascular - PE Rate WNL, Rhythm regular, Normal heart soundsNeurological - PE Alert, Oriented x 3, No motor deficit, No sensory deficitSpeech/LanguageNo: Dysarthric, Expressive Aphasia.Motor ExamLL Extremity Normal Strength, RAEGAN Extremity Normal Strength, RL Extremity Normal Strength,RU Extremity Normal StrengthSensory ExamLL Extrimity Normal Light Touch, RAEGAN Extremity Normal Light Touch, RL Extremity NormalLight Touch, RU Extremity Normal Light TouchGait - PE NormalNeurology CommentPatient has no nystagmus. No deficits in her cranial nerves. No pronator drift orweakness of her upper or lower extremities. Speech is clear. Patient is coherent andverbalizing normally.Conclusion / PlanConclusion1. New onset seizure2. HypothyroidismPlan1. New onset seizure admit and place on telemetry with seizure precautions. Patient'sfamily is concerned about a possible stroke as the underlying cause, so will obtaincarotid artery ultrasound. Patient is speaking clearly and not having any difficultyswallowing so I will allow a clear liquid diet. If she tolerates this well, will advanceto regular. She has already had a loading dose of Keppra at the outlying ER, I willcontinue Keppra 500 mg by mouth twice a day while admitted. Review MRI that was done 2weeks ago. Consult neurology.2. Hypothyroidism patient states that she is due to have her TSH checked. I doubt thisis contributing to the new onset seizures but will draw this for comprehensiveness.DisclaimerT his dictation was created using voice recognition software.Phonetic and/or minor grammatical errors may exist.eSign Date and TimeAlverson,Cj Castorena MD Verified/Reviewed by 02/10/18 2017 [facility] Vital Signs Date Time Vital Sign Value Performing Clinician Andre campbell 01-12-2024 15:55-0400 Body height 167.6 cm Ginny Cooper MD Work Phone: [facility] 01-12-2024 15:55-0400 Body mass index (BMI) [Ratio] 25.5 kg/m2 Ginny Cooper MD Work Phone: [facility] 01-12-2024 15:55-0400 Body weight 71.67 kg Ginny Cooper MD Work Phone: [facility] 12-18-2023 11:20-0400 Diastolic blood pressure 60 mm[Hg] Lexi Mcintosh MD Work Phone: [facility] 12-18-2023 11:20-0400 Heart rate 67 /min Lexi Mcintosh MD Work Phone: [facility] 12-18-2023 11:20-0400 Respiratory rate 16 /min Lexi Mcintosh MD Work Phone: [facility] 12-18-2023 11:20-0400 SaO2% (BldA) [Mass fraction] 98 % Lexi Mcintosh MD Work Phone: [facility] 12-18-2023 11:20-0400 Systolic blood pressure 119 mm[Hg] Lexi Mcintosh MD Work Phone: [facility] 12-18-2023 10:01-0400 Body temperature 96.91 [degF] Lexi Mcintosh MD Work Phone: [facility] 12-18-2023 10:01-0400 Body weight 71.7 kg Lexi Mcintosh MD Work Phone: [facility] 06-30-2023 09:44-0400 Body temperature 96.91 [degF] Ginny Cooper MD Work Phone: [facility] 06-30-2023 09:44-0400 Body weight 71.67 kg Ginny Cooper MD Work Phone: [facility] 06-30-2023 09:44-0400 Diastolic blood pressure 70 mm[Hg] Ginny Cooper MD Work Phone: [facility] 06-30-2023 09:44-0400 Systolic blood pressure 102 mm[Hg] Ginny Cooper MD Work Phone: [facility] 12-29-2022 10:19-0400 Body temperature 97.5 [degF] Ginny Cooper MD Work Phone: [facility] 12-29-2022 10:19-0400 Body weight 70.31 kg Ginny Cooper MD Work Phone: [facility] 12-29-2022 10:19-0400 Diastolic blood pressure 86 mm[Hg] Ginny Cooper MD Work Phone: [facility] 12-29-2022 10:19-0400 Heart rate 64 /min Ginny Cooper MD Work Phone: [facility] 12-29-2022 10:19-0400 Systolic blood pressure 122 mm[Hg] Ginny Cooper MD Work Phone: [facility] Encounters Encounter Date Encounter Type Care Provider Facility Start: 06-20-2025 End: 06-20-2025 ambulatory GINNY COOPER Facility:[facility] Start: 05-29-2025 End: 05-29-2025 Refill Ginny Cooper MD Work Phone: Rheumatology Comment on above: Refill Request Start: 03-12-2025 End: 03-13-2025 Refill Ginny Cooper MD Work Phone: Rheumatology Comment on above: Refill Request Start: 01-15-2025 End: 01-16-2025 Refill Ginny Cooper MD Work Phone: Rheumatology Comment on above: Refill Request Start: 01-12-2025 End: 01-12-2025 ambulatory Ginny Cooper MD Work Phone: Rheumatology Comment on above: Labs Start: 01-12-2025 End: 01-12-2025 E-mail encounter from caregiver Ginny Cooper MD Work Phone: Rheumatology Start: 01-09-2025 End: 01-09-2025 Subsequent hospital visit by physician Xr [facility] Work Phone: Radiology Comment on above: Seronegative rheumat oid arthritis (HCC) [M06.00] Start: 01-09-2025 End: 01-09-2025 Patient encounter procedure Ginny Cooper MD Work Phone: Rheumatology Comment on above: Seronegative rheumat oid arthritis (HCC) (Primary Dx); High risk medication use; Bilateral hip pain; Chronic pain of both knees Start: 01-09-2025 End: 01-09-2025 ambulatory GINNY COOPER Facility:[facility] Start: 07-29-2024 End: 07-29-2024 ambulatory [facility] Facility:[facility] Start: 07-12-2024 End: 07-12-2024 Telemedicine consultation with patient Ginny Cooper MD Work Phone: Rheumatology Start: 07-12-2024 End: 07-12-2024 ambulatory Ginny Cooper MD Work Phone: Rheumatology Comment on above: Seronegative rheumat oid arthritis (HCC) (Primary Dx); High risk medication use Start: 07-01-2024 End: 07-05-2024 ambulatory Ginny Cooper MD Work Phone: Rheumatology Comment on above: Virtual vs in person Start: 04-04-2024 ambulatory [facility] Start: 03-08-2024 End: 03-08-2024 ambulatory [facility] Start: 03-07-2024 End: 03-07-2024 ambulatory [facility] Start: 02-29-2024 End: 02-29-2024 ambulatory [facility] Facility:[facility] Start: 01-12-2024 End: 01-12-2024 Patient encounter procedure Ginny Cooper MD Work Phone: Rheumatology Comment on above: Seronegative rheumat oid arthritis (HCC) (Primary Dx); High risk medication use Start: 12-27-2023 Refill Patlauro akhtar MD Work Phone: Rheumatology Comment on above: Refill Request Start: 12-18-2023 End: 12-18-2023 Subsequent hospital visit by physician Lexi Mcintosh MD Work Phone: Ambulatory Surgery Comment on above: Family history of co jazz cancer [Z80.0] Start: 11-19-2023 ambulatory Ginny akhtar MD Work Phone: [facility] Start: 11-19-2023 Patient encounter procedure Ginny Cooper MD Work Phone: Rheumatology Comment on above: For my next appointm ent Next appointment Dec 24 @ 10:00 Start: 06-30-2023 End: 06-30-2023 Patient encounter procedure Ginny Cooper MD Work Phone: Rheumatology Comment on above: Seronegative rheumat oid arthritis (HCC) (Primary Dx); Cough, unspecified type; High risk medication use Start: 12-29-2022 End: 12-29-2022 Patient encounter procedure Ginny Cooper MD Work Phone: Rheumatology Comment on above: Seronegative rheumat oid arthritis (HCC) (Primary Dx); High risk medication use Start: 11-26-2022 End: 11-26-2022 Subsequent hospital visit by physician [employer] [employer] [facility] (I-Stat/1.5t) Work Phone: Radiology Comment on above: 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] Start: 09-18-2022 Patient Update Rubia arriaga MD Work Phone: [facility] Comment on above: Orders Start: 07-01-2022 End: 07-01-2022 ambulatory Ginny Cooper MD Work Phone: Rheumatology Comment on above: Seropositive rheumat oid arthritis (HCC) (Primary Dx); Localized, primary osteoarthritis of hand, unspecified laterality; High risk medication use Start: 07-01-2022 End: 07-01-2022 Telemedicine consultation with patient Ginny Cooper MD Work Phone: [facility] Start: 02-10-2018 End: 02-12-2018 Evaluation and management of inpatient Cj Ron Facility:[facility] Procedures Date Procedure Procedure Detail Performing Clinician Start: 01-09-2025 Radex hips bilateral with pelvis minimum 5 views Ginny Cooper MD Work Phone: Start: 12-18-2023 Colonoscopy flx dx w /collj spec when pfrmd Karmen Schwartz PA-C Work Phone: Start: 12-18-2023 Colonoscopy Lexi Mcintosh MD Work Phone: Start: 11-26-2022 Mri brain brain stem w/o w/contrast material Niki Medellin APRN.[employer]USED [employer] MANAGER Work Phone: Plan of Treatment Date Care Activity Detail Author Start: 12-17-2028 Screening for malignant neoplasm of colon [facility] Start: 2028 RSV Vaccine (1 - 1-dose 75+ series) RSV Vaccine (1 - 1-dose 75+ series) [facility] Start: 05-15-2025 Influenza vaccination Influenza Vaccine (#1) [facility] Start: 01-09-2025 End: 01-09-2025 Patient encounter procedure 01/09/2025 2:20 PM EDT Office Visit Rheumatology [address] [place], [place] [id number] Ginny Cooper MD [address] [place] [address] Follow up Rheumatology Comment on above: Follow up Start: 01-09-2025 End: 04-10-2025 Alanine aminotransferase [Enzymatic activity/volume] in Serum or Plasma [facility] Work Phone: Comment on above: Expected: 01/09/2025, Expires: Start: 01-09-2025 End: 04-10-2025 Aspartate aminotransferase [Enzymatic activity/volume] in Serum or Plasma [facility] Comment on above: Expected: 01/09/2025, Expires: Start: 01-09-2025 End: 04-10-2025 C reactive protein [Mass/volume] in Serum or Plasma [facility] Comment on above: Expected: 01/09/2025, Expires: Start: 01-09-2025 End: 04-10-2025 CBC W Auto Differential panel - Blood [facility] Comment on above: Expected: 01/09/2025, Expires: Start: 01-09-2025 End: 04-10-2025 Creatinine and Glomerular filtration rate.predicted panel - Serum, Plasma or Blood [facility] Comment on above: Expected: 01/09/2025, Expires: Start: 01-09-2025 End: 04-10-2025 Erythrocyte sedimentation rate [facility] Comment on above: Expected: 01/09/2025, Expires: Start: 01-09-2025 End: 04-10-2025 Urea nitrogen [Mass/volume] in Serum or Plasma [facility] Comment on above: Expected: 01/09/2025, Expires: Start: 12-17-2024 Screening for malignant neoplasm of colon [facility] Start: 09-14-2024 Advance Directive Discussion Advance Directive Discussion [facility] Start: 07-12-2024 End: 07-12-2024 Follow-up encounter 07/12/2024 4:00 PM EDT [facility] [place] [address] Ginny Cooper MD [address] [place] [address] follow up Rheumatology Comment on above: follow up Start: 07-12-2024 End: 07-12-2024 Patient encounter procedure 07/12/2024 4:00 PM EDT Office Visit Rheumatology [address] [place] [address] Ginny Cooper MD [address] [place] [address] follow up Rheumatology Comment on above: follow up Start: 05-15-2024 Covid-19 Vaccine () Covid-19 Vaccine () [facility] Start: 05-15-2024 Influenza vaccination [facility] Start: 09-14-2023 Advance Directive Discussion Advance Directive Discussion [facility] Start: 09-14-2023 Behavioral Health Screening Behavioral Health Screening [facility] Start: 09-14-2023 Depression Assessment Depression Assessment [facility] Start: 06-30-2023 End: 09-29-2023 Alanine aminotransferase [Enzymatic activity/volume] in Serum or Plasma ALT/SGPT Lab Routine Seronegative rheumatoid arthritis (HCC) Cough, unspecified type Expected: 06/30/2023, Expires: 09/29/2023 [facility] Work Phone: Comment on above: Expected: 06/30/2023, Expires: 4 Start: 06-30-2023 End: 09-29-2023 Aspartate aminotransferase [Enzymatic activity/volume] in Serum or Plasma AST/SGOT BLD Lab Routine Seronegative rheumatoid arthritis (HCC) Cough, unspecified type Expected: 06/30/2023, Expires: 09/29/2023 [facility] Work Phone: Comment on above: Expected: 06/30/2023, Expires: 4 Start: 06-30-2023 End: 09-29-2023 C reactive protein [Mass/volume] in Serum or Plasma C-REACTIVE PROTEIN (CRP) Lab Routine Seronegative rheumatoid arthritis (HCC) Cough, unspecified type Expected: 06/30/2023, Expires: 09/29/2023 [facility] Work Phone: Comment on above: Expected: 06/30/2023, Expires: 4 Start: 06-30-2023 End: 09-29-2023 CBC W Auto Differential panel - Blood CBC + DIFF Lab Routine Seronegative rheumatoid arthritis (HCC) Cough, unspecified type Expected: 06/30/2023, Expires: 09/29/2023 [facility] Work Phone: Comment on above: Expected: 06/30/2023, Expires: 4 Start: 06-30-2023 End: 09-29-2023 CREATININE BLD CREATININE BLD Lab Routine Seronegative rheumatoid arthritis (HCC) Cough, unspecified type Expected: 06/30/2023, Expires: 09/29/2023 [facility] Work Phone: Comment on above: Expected: 06/30/2023, Expires: 4 Start: 06-30-2023 End: 09-29-2023 Cyclic citrullinated peptide IgG Ab [Units/volume] in Serum or Plasma CCP ANTIBODY IGG Lab Routine Seronegative rheumatoid arthritis (HCC) Cough, unspecified type Expected: 06/30/2023, Expires: 09/29/2023 [facility] Work Phone: Comment on above: Expected: 06/30/2023, Expires: 4 Start: 06-30-2023 End: 09-29-2023 Erythrocyte sedimentation rate SED RATE WESTERGREN Lab Routine Seronegative rheumatoid arthritis (HCC) Cough, unspecified type Expected: 06/30/2023, Expires: 09/29/2023 [facility] Work Phone: Comment on above: Expected: 06/30/2023, Expires: 4 Start: 06-30-2023 End: 09-29-2023 Nuclear Ab [Presence] in Serum by Immunoassay SUZIE PANEL BLOOD SCRN Lab Routine Seronegative rheumatoid arthritis (HCC) Cough, unspecified type Expected: 06/30/2023, Expires: 09/29/2023 [facility] Work Phone: Comment on above: Expected: 06/30/2023, Expires: 4 Start: 06-30-2023 End: 09-29-2023 Rheumatoid factor [Units/volume] in Serum or Plasma RHEUMATOID FACTOR BL Lab Routine Seronegative rheumatoid arthritis (HCC) Cough, unspecified type Expected: 06/30/2023, Expires: 09/29/2023 [facility] Work Phone: Comment on above: Expected: 06/30/2023, Expires: 4 Start: 06-30-2023 End: 09-29-2023 Urea nitrogen [Mass/volume] in Serum or Plasma BUN BLOOD Lab Routine Seronegative rheumatoid arthritis (HCC) Cough, unspecified type Expected: 06/30/2023, Expires: 09/29/2023 [facility] Work Phone: Comment on above: Expected: 06/30/2023, Expires: Start: 05-15-2023 Covid-19 Vaccine () Covid-19 Vaccine () [facility] Start: 05-15-2023 Influenza vaccination [facility] Start: 09-14-2022 ADVANCE DIRECTIVE DISCUSSION ADVANCE DIRECTIVE DISCUSSION [facility] Start: 09-14-2022 DEPRESSION ASSESSMENT DEPRESSION ASSESSMENT [facility] Start: 09-14-2022 Medicare Annual Wellness Visit Medicare Annual Wellness Visit [facility] Start: 05-15-2022 Influenza vaccination INFLUENZA (#1) [facility] Start: 09-14-2021 ADVANCE DIRECTIVE DISCUSSION ADVANCE DIRECTIVE DISCUSSION [facility] Start: 09-14-2021 DEPRESSION ASSESSMENT DEPRESSION ASSESSMENT [facility] Start: 02-17-2021 DIABETES SCREEN DIABETES SCREEN [facility] Start: 02-17-2021 Diabetes Screening Diabetes Screening [facility] Start: 2018 BONE DENSITY BONE DENSITY [facility] Start: 2018 Bone Density Screening Bone Density Screening [facility] Start: 2018 PNEUMOCOCCAL: 65+ (1 - PCV) PNEUMOCOCCAL: 65+ (1 - PCV) [facility] Start: 2018 Screening for osteoporosis Bone Density Screening [facility] Start: 2013 RSV Vaccine (1 - 1-dose 60+ series) RSV Vaccine (1 - 1-dose 60+ series) [facility] Start: 2003 SHINGRIX VACCINE (1 of 2) SHINGRIX VACCINE (1 of 2) [facility] Start: 1998 COLOGUARD (FIT-DNA) COLOGUARD (FIT-DNA) [facility] Start: 1998 Colonoscopy COLONOSCOPY [facility] Start: 1998 COLORECTAL CANCER SCREENING COLORECTAL CANCER SCREENING [facility] Start: [address] COLONOGRAPHY [facility] Start: 1998 FECAL OCCULT BLOOD FECAL OCCULT BLOOD [facility] Start: 1998 Lipid 1996 panel - Serum or Plasma Lipid Screening [facility] Start: 1998 Lipid panel Lipid Screening [facility] Start: 1998 LIPID SCREEN LIPID SCREEN [facility] Start: 1998 Screening for malignant neoplasm of colon [facility] Start: 1998 SIGMOIDOSCOPY SIGMOIDOSCOPY [facility] Start: 1993 Mammography [facility] Start: 1993 Screening for malignant neoplasm of breast Mammogram Screening [facility] Start: 1972 SHINGRIX VACCINE (1 of 2) SHINGRIX VACCINE (1 of 2) [facility] Start: 1972 Urine microalbumin profile [facility] Start: 1971 ANNUAL PCP TEAM CHRONIC DISEASE VISIT ANNUAL PCP TEAM CHRONIC DISEASE VISIT [facility] Start: 1971 Anxiety Screening Anxiety Screening [facility] Start: 1971 Depression Screening Depression Screening [facility] Start: 1971 HEPATITIS C SCREENING HEPATITIS C SCREENING [facility] Start: 1971 Hepatitis C screening Hepatitis C Screening [facility] Start: 1959 PNEUMOCOCCAL: 65+ (1 - PCV) PNEUMOCOCCAL: 65+ (1 - PCV) [facility] End: 11-18-2024 Alanine aminotransferase [Enzymatic activity/volume] in Serum or Plasma ALT/SGPT Lab Routine Seronegative rheumatoid arthritis (HCC) Every 3 months for 4 Occurrences starting 11/19/2023 until 11/18/2024 [facility] Work Phone: Comment on above: Every 3 months for 4 Occurrences startin g 11/19/2023 until 11/18/2024 End: 07-12-2025 Alanine aminotransferase [Enzymatic activity/volume] in Serum or Plasma ALANINE AMINOTRANSFERASE / SGPT Lab Routine Seronegative rheumatoid arthritis (HCC) High risk medication use Every 6 months for 2 Occurrences starting 07/12/2024 until 07/12/2025 [facility] Work Phone: Comment on above: Every 6 months for 2 Occurrences startin g 07/12/2024 until 07/12/2025 End: 11-18-2024 Aspartate aminotransferase [Enzymatic activity/volume] in Serum or Plasma AST/SGOT BLD Lab Routine Seronegative rheumatoid arthritis (HCC) Every 3 months for 4 Occurrences starting 11/19/2023 until 11/18/2024 [facility] Work Phone: Comment on above: Every 3 months for 4 Occurrences startin g 11/19/2023 until 11/18/2024 End: 07-12-2025 Aspartate aminotransferase [Enzymatic activity/volume] in Serum or Plasma ASPARTATE AMINOTRANSFERASE/SGOT Lab Routine Seronegative rheumatoid arthritis (HCC) High risk medication use Every 6 months for 2 Occurrences starting 07/12/2024 until 07/12/2025 [facility] Comment on above: Every 6 months for 2 Occurrences startin g 07/12/2024 until 07/12/2025 End: 11-18-2024 C reactive protein [Mass/volume] in Serum or Plasma C-REACTIVE PROTEIN (CRP) Lab Routine Seronegative rheumatoid arthritis (HCC) Every 3 months for 4 Occurrences starting 11/19/2023 until 11/18/2024 [facility] Work Phone: Comment on above: Every 3 months for 4 Occurrences startin g 11/19/2023 until 11/18/2024 End: 07-12-2025 C reactive protein [Mass/volume] in Serum or Plasma C-REACTIVE PROTEIN Lab Routine Seronegative rheumatoid arthritis (HCC) High risk medication use Every 6 months for 2 Occurrences starting 07/12/2024 until 07/12/2025 [facility] Comment on above: Every 6 months for 2 Occurrences startin g 07/12/2024 until 07/12/2025 End: 11-18-2024 CBC W Auto Differential panel - Blood CBC + DIFF Lab Routine Seronegative rheumatoid arthritis (HCC) Every 3 months for 4 Occurrences starting 11/19/2023 until 11/18/2024 [facility] Work Phone: Comment on above: Every 3 months for 4 Occurrences startin g 11/19/2023 until 11/18/2024 End: 07-12-2025 CBC W Auto Differential panel - Blood COMPLETE BLOOD COUNT AND DIFFERENTIAL Lab Routine Seronegative rheumatoid arthritis (HCC) High risk medication use Every 6 months for 2 Occurrences starting 07/12/2024 until 07/12/2025 [facility] Comment on above: Every 6 months for 2 Occurrences startin g 07/12/2024 until 07/12/2025 End: 11-18-2024 CREATININE BLD CREATININE BLD Lab Routine Seronegative rheumatoid arthritis (HCC) Every 3 months for 4 Occurrences starting 11/19/2023 until 11/18/2024 [facility] Work Phone: Comment on above: Every 3 months for 4 Occurrences startin g 11/19/2023 until 11/18/2024 End: 07-12-2025 CREATININE BLD CREATININE BLD Lab Routine Seronegative rheumatoid arthritis (HCC) High risk medication use Every 6 months for 2 Occurrences starting 07/12/2024 until 07/12/2025 [facility] Comment on above: Every 6 months for 2 Occurrences startin g 07/12/2024 until 07/12/2025 End: 11-18-2024 Erythrocyte sedimentation rate SED RATE WESTERGREN Lab Routine Seronegative rheumatoid arthritis (HCC) Every 3 months for 4 Occurrences starting 11/19/2023 until 11/18/2024 [facility] Work Phone: Comment on above: Every 3 months for 4 Occurrences startin g 11/19/2023 until 11/18/2024 End: 07-12-2025 Erythrocyte sedimentation rate SEDIMENTATION RATE, WESTERGREN Lab Routine Seronegative rheumatoid arthritis (HCC) High risk medication use Every 6 months for 2 Occurrences starting 07/12/2024 until 07/12/2025 [facility] Comment on above: Every 6 months for 2 Occurrences startin g 07/12/2024 until 07/12/2025 End: 10-18-2023 Mri brain brain stem w/o w/contrast material MRI BRAIN WO/W IVCON Radiology Routine 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 starting 09/19/2022 until 10/18/2023 [facility] Work Phone: Comment on above: 1 Occurrences starting 09/19/2022 until 10/18/2023 End: 07-29-2024 Radiologic exam chest 2 views XR CHEST 2V FRONTAL/LAT Radiology Routine Seronegative rheumatoid arthritis (HCC) Cough, unspecified type 1 Occurrences starting 06/30/2023 until 07/29/2024 [facility] Work Phone: Comment on above: 1 Occurrences starting 06/30/2023 until 07/29/2024 SURGICAL PATHOLOGY [facility] Work Phone: Comment on above: Release Upon Ordering for 1 Occurrences starting 12/18/2023, 1 completed End: 11-18-2024 Urea nitrogen [Mass/volume] in Serum or Plasma BUN BLOOD Lab Routine Seronegative rheumatoid arthritis (HCC) Every 3 months for 4 Occurrences starting 11/19/2023 until 11/18/2024 [facility] Work Phone: Comment on above: Every 3 months for 4 Occurrences startin g 11/19/2023 until 11/18/2024 End: 07-12-2025 Urea nitrogen [Mass/volume] in Serum or Plasma UREA NITROGEN Lab Routine Seronegative rheumatoid arthritis (HCC) High risk medication use Every 6 months for 2 Occurrences starting 07/12/2024 until 07/12/2025 [facility] Comment on above: Every 6 months for 2 Occurrences startin g 07/12/2024 until 07/12/2025 End: 07-29-2024 XR FOOT GENERAL 3V AP/LAT/OBL BILATERAL XR FOOT GENERAL 3V AP/LAT/OBL BILATERAL Radiology Routine Seronegative rheumatoid arthritis (HCC) Cough, unspecified type 1 Occurrences starting 06/30/2023 until 07/29/2024 [facility] Work Phone: Comment on above: 1 Occurrences starting 06/30/2023 until 07/29/2024 End: 07-29-2024 XR HAND GENERAL 3V PA/LAT/OBL BILATERAL XR HAND GENERAL 3V PA/LAT/OBL BILATERAL Radiology Routine Seronegative rheumatoid arthritis (HCC) Cough, unspecified type 1 Occurrences starting 06/30/2023 until 07/29/2024 [facility] Work Phone: Comment on above: 1 Occurrences starting 06/30/2023 until 07/29/2024 [facility] Immunizations Immunization Date Immunization Notes Care Provider Fa [facility] 08-18-2024 influenza virus vaccine, unspecified formulation Ginny Cooper MD Work Phone: [facility] 07-01-2021 influenza virus vaccine, unspecified formulation Ginny Cooper MD Work Phone: [facility] Payers Date Payer Category Payer Self-pay 2022 Medicare [id number] 2021 Private Health Insurance [employer] MED IC[employer] SUPPLEMENT [id number] 2021 Unknown [id number] 2019 Unknown [id number] 2018 Medicare [id number] 2017 Unknown [id number] 1955 Unknown [id number] 1953 Unknown [id number] 1953 Unknown [id number] Unknown [id number] Unknown [id number] Unknown [id number] Social History Date Type Detail Facility Start: 04-22-2018 End: 12-18-2023 Tobacco smoking status NHIS Never smoked tobacco [facility] Start: 04-22-2018 End: 12-18-2023 Tobacco use and exposure Smokeless tobacco non-user [facility] Start: 1955 Sex Assigned At Female C [facility] Start: 03-24-2023 Alcohol intake Ex-drinker (finding) [facility] Start: 03-24-2023 End: 01-11-2024 History of Social function [facility] Start: 03-24-2023 End: 01-11-2024 Tobacco use panel [facility] Start: 08-15-2012 Adult Depression Screening Assessment 0 [facility] Start: 05-19-2021 Gender identity Identifies as female gender (finding) [facility] Start: 05-19-2021 Sexual orientation Heterosexual (fin ding) [facility] Start: 12-18-2023 End: 01-09-2025 Alcohol intake Current drinker of alcohol (finding) [facility] Start: 12-18-2023 Alcohol Comment wine on occasion [facility] Functional Status Date Assessment Result Facility 02-17-2018 Are you deaf, or do you have serious difficulty hearing No 02/17/2018 3:09 PM Edith Flood RN No [facility] Work Phone: 02-17-2018 Are you blind, or do you have serious difficulty seeing, even when wearing glasses No 02/17/2018 3:09 PM Edith Flood RN No [facility] 02-17-2018 Do you have serious difficulty walking or climbing stairs No 02/17/2018 3:09 PM Edith Flood RN No [facility] 02-17-2018 Do you have difficul ty dressing or bathing No 02/17/2018 3:09 PM Edith Flood RN No [facility] 02-17-2018 Because of a physica l, mental, or emotional condition, do you have difficulty doing errands alone such as visiting a physician's office or shopping No 02/17/2018 3:09 PM Edith Flood RN No [facility] Mental Status Date Assessment Result Facility 02-17-2018 Because of a physica l, mental, or emotional condition, do you have serious difficulty concentrating, remembering, or making decisions No 02/17/2018 3:09 PM EDT Edith Membreno RN No [facility] Clinical Notes 06-13-2021 to 05-29-2025 Telephone Encounter - Cinthia Kramer RN - 05/29/2025 11:28 AM EDTTelephone Encounter - Cinthia Kramer RN - 05/29/2025 11:28 AM EDTTelephone Encounter - Fay Franklin RN - 03/13/2025 2:35 PM EDT Note Date & Type Note Facility 05-29-2025 Telephone encounter Note Requesting refill on Plaquenil. Script pended. Thank you. Scan on 05/09/2025 10:00 AM by Provider, Ariana, JERAMY: Office Note of 05/09/2025 from [facility]. Most recent Rheumatology visit: 01/09/2025 (with Ginny Cooper) Last Bone Density on file: None on file Rheumatology Care Team: None on file Recent Office Visits - This Specialty 01/09/2025 Seronegative rheumatoid arthritis (HCC) Rheumatology Ginny Cooper MD 07/12/2024 Seronegative rheumatoid arthritis (HCC) Rheumatology Ginny Cooper MD 01/12/2024 Seronegative rheumatoid arthritis (HCC) Rheumatology Ginny Cooper MD Upcoming Rheumatology Appointments - Next 365 Days No appointments to display Last Ophthalmology Check for Plaquenil (Hydroxychloroquine) Last OCT Macula Exam No resulted procedures found. Last Visual Field Exam No resulted procedures found. CBC: Latest Ref Rng & Units 12/21/2023 01/09/2025 CBC WBC 3.70 - 11.00 k/uL 4.90 6.68 Hemoglobin 11.5 - 15.5 g/dL 13.6 13.4 Hematocrit 36.0 - 46.0 % 42.0 40.2 Platelet Count 150 - 400 k/uL 228 196 Abs Neut (ANC) 1.45 - 7.50 k/uL 3.01 4.28 Abs Lymph 1.00 - 4.00 k/uL 1.16 1.54 Vitamin D: None on file in the last 6 months LFT: None on file in the last 6 months Hepatic Function: Creatinine: Latest Ref Rng & Units 12/21/2023 01/09/2025 Creatinine Creatinine 0.58 - 0.96 mg/dL 0.63 0.59 ESR/CRP: Latest Ref Rng & Units 12/21/2023 01/09/2025 ESR, WSR WSR 0 - 20 mm/hr 5 5 Latest Ref Rng & Units 12/21/2023 01/09/2025 CRP CRP <0.9 mg/dL <0.3 0.3 Uric Acid: None on file in the last 6 months Open Standing (Multiple Instance) Lab Orders Remain Interval Expires Ordered Last Rel. ALANINE AMINOTRANSFERASE / SGPT [SQALT] 2/2 Every 6 months 07/12/25 07/12/24 Auth. provider: Ginny Cooper MD Assoc. diagnoses: Seronegative rheumatoid arthritis (HCC), High risk medication use ASPARTATE AMINOTRANSFERASE/SGOT [SQAST] 2/2 Every 6 months 07/12/25 07/12/24 Auth. provider: Ginny Cooper MD Assoc. diagnoses: Seronegative rheumatoid arthritis (HCC), High risk medication use COMPLETE BLOOD COUNT AND DIFFERENTIAL [SQCBCDIF] 2/2 Every 6 months 07/12/25 07/12/24 Auth. provider: Ginny Cooper MD Assoc. diagnoses: Seronegative rheumatoid arthritis (HCC), High risk medication use C-REACTIVE PROTEIN [SQCRP] 2/2 Every 6 months 07/12/25 07/12/24 Auth. provider: Ginny Cooper MD Assoc. diagnoses: Seronegative rheumatoid arthritis (HCC), High risk medication use CREATININE BLD [SQCRET] 2/2 Every 6 months 07/12/25 07/12/24 Auth. provider: Ginny Cooper MD Assoc. diagnoses: Seronegative rheumatoid arthritis (HCC), High risk medication use UREA NITROGEN [SQBUN] 2/2 Every 6 months 07/12/25 07/12/24 Auth. provider: Ginny Cooper MD Assoc. diagnoses: Seronegative rheumatoid arthritis (HCC), High risk medication use SEDIMENTATION RATE, WESTERGREN [SQWSR] 2/2 Every 6 months 07/12/25 07/12/24 Auth. provider: Ginny Cooper MD Assoc. diagnoses: Seronegative rheumatoid arthritis (HCC), High risk medication use Open Future (Single Instance) Lab Orders None [facility] 05-29-2025 Miscellaneous Notes Requesting refill on Plaquenil. Script pended. Thank you. Scan on 05/09/2025 10:00 AM by Provider, JERAMY Lane: Office Note of 05/09/2025 from [facility]. Most recent Rheumatology visit: 01/09/2025 (with Ginny Cooper) Last Bone Density on file: None on file Rheumatology Care Team: None on file Recent Office Visits - This Specialty 01/09/2025 Seronegative rheumatoid arthritis (HCC) Rheumatology Ginny Cooper MD 07/12/2024 Seronegative rheumatoid arthritis (HCC) Rheumatology Ginny Cooper MD 01/12/2024 Seronegative rheumatoid arthritis (HCC) Rheumatology Ginny Cooper MD Upcoming Rheumatology Appointments - Next 365 Days No appointments to display Last Ophthalmology Check for Plaquenil (Hydroxychloroquine) Last OCT Macula Exam No resulted procedures found. Last Visual Field Exam No resulted procedures found. CBC: Latest Ref Rng & Units 12/21/2023 01/09/2025 CBC WBC 3.70 - 11.00 k/uL 4.90 6.68 Hemoglobin 11.5 - 15.5 g/dL 13.6 13.4 Hematocrit 36.0 - 46.0 % 42.0 40.2 Platelet Count 150 - 400 k/uL 228 196 Abs Neut (ANC) 1.45 - 7.50 k/uL 3.01 4.28 Abs Lymph 1.00 - 4.00 k/uL 1.16 1.54 Vitamin D: None on file in the last 6 months LFT: None on file in the last 6 months Hepatic Function: Creatinine: Latest Ref Rng & Units 12/21/2023 01/09/2025 Creatinine Creatinine 0.58 - 0.96 mg/dL 0.63 0.59 ESR/CRP: Latest Ref Rng & Units 12/21/2023 01/09/2025 ESR, WSR WSR 0 - 20 mm/hr 5 5 Latest Ref Rng & Units 12/21/2023 01/09/2025 CRP CRP <0.9 mg/dL <0.3 0.3 Uric Acid: None on file in the last 6 months Open Standing (Multiple Instance) Lab Orders Remain Interval Expires Ordered Last Rel. ALANINE AMINOTRANSFERASE / SGPT [SQALT] 2/2 Every 6 months 07/12/25 07/12/24 Auth. provider: Ginny Cooper MD Assoc. diagnoses: Seronegative rheumatoid arthritis (HCC), High risk medication use ASPARTATE AMINOTRANSFERASE/SGOT [SQAST] 2/2 Every 6 months 07/12/25 07/12/24 Auth. provider: Ginny Cooper MD Assoc. diagnoses: Seronegative rheumatoid arthritis (HCC), High risk medication use COMPLETE BLOOD COUNT AND DIFFERENTIAL [SQCBCDIF] 2/2 Every 6 months 07/12/25 07/12/24 Auth. provider: Ginny Cooper MD Assoc. diagnoses: Seronegative rheumatoid arthritis (HCC), High risk medication use C-REACTIVE PROTEIN [SQCRP] 2/2 Every 6 months 07/12/25 07/12/24 Auth. provider: Ginny Cooper MD Assoc. diagnoses: Seronegative rheumatoid arthritis (HCC), High risk medication use CREATININE BLD [SQCRET] 2/2 Every 6 months 07/12/25 07/12/24 Auth. provider: Ginny Cooper MD Assoc. diagnoses: Seronegative rheumatoid arthritis (HCC), High risk medication use UREA NITROGEN [SQBUN] 2/2 Every 6 months 07/12/25 07/12/24 Auth. provider: Ginny Cooper MD Assoc. diagnoses: Seronegative rheumatoid arthritis (HCC), High risk medication use SEDIMENTATION RATE, WESTERGREN [SQWSR] 2/2 Every 6 months 07/12/25 07/12/24 Auth. provider: Ginny Cooper MD Assoc. diagnoses: Seronegative rheumatoid arthritis (HCC), High risk medication use Open Future (Single Instance) Lab Orders None documented in this encounter [facility] 03-13-2025 Telephone encounter Note Most recent Rheumatology visit: 01/09/2025 (with Ginny Moralest) Last Bone Density on file: None on file Rheumatology Care Team: None on file Recent Office Visits - This Specialty 01/09/2025 Seronegative rheumatoid arthritis (HCC) Rheumatology Ginny Cooper MD 07/12/2024 Seronegative rheumatoid arthritis (HCC) Rheumatology Ginny Cooper MD 01/12/2024 Seronegative rheumatoid arthritis (HCC) Rheumatology Ginny Cooper MD Upcoming Rheumatology Appointments - Next 365 Days No appointments to display Last Ophthalmology Check for Plaquenil (Hydroxychloroquine) Last OCT Macula Exam No resulted procedures found. Last Visual Field Exam No resulted procedures found. CBC: Latest Ref Rng & Units 12/21/2023 01/09/2025 CBC WBC 3.70 - 11.00 k/uL 4.90 6.68 Hemoglobin 11.5 - 15.5 g/dL 13.6 13.4 Hematocrit 36.0 - 46.0 % 42.0 40.2 Platelet Count 150 - 400 k/uL 228 196 Abs Neut (ANC) 1.45 - 7.50 k/uL 3.01 4.28 Abs Lymph 1.00 - 4.00 k/uL 1.16 1.54 Vitamin D: None on file in the last 6 months LFT: None on file in the last 6 months Hepatic Function: Creatinine: Latest Ref Rng & Units 12/21/2023 01/09/2025 Creatinine Creatinine 0.58 - 0.96 mg/dL 0.63 0.59 ESR/CRP: Latest Ref Rng & Units 12/21/2023 01/09/2025 ESR, WSR WSR 0 - 20 mm/hr 5 5 Latest Ref Rng & Units 12/21/2023 01/09/2025 CRP CRP <0.9 mg/dL <0.3 0.3 Uric Acid: None on file in the last 6 months Open Standing (Multiple Instance) Lab Orders Remain Interval Expires Ordered Last Rel. ALANINE AMINOTRANSFERASE / SGPT [SQALT] 2/2 Every 6 months 07/12/25 07/12/24 Auth. provider: Ungprasert, Patompong, MD Assoc. diagnoses: Seronegative rheumatoid arthritis (HCC), High risk medication use ASPARTATE AMINOTRANSFERASE/SGOT [SQAST] 2/2 Every 6 months 07/12/25 07/12/24 Auth. provider: Ginny Cooper MD Assoc. diagnoses: Seronegative rheumatoid arthritis (HCC), High risk medication use COMPLETE BLOOD COUNT AND DIFFERENTIAL [SQCBCDIF] 2/2 Every 6 months 07/12/25 07/12/24 Auth. provider: Ginny Cooper MD Assoc. diagnoses: Seronegative rheumatoid arthritis (HCC), High risk medication use C-REACTIVE PROTEIN [SQCRP] 2/2 Every 6 months 07/12/25 07/12/24 Auth. provider: Ginny Cooper MD Assoc. diagnoses: Seronegative rheumatoid arthritis (HCC), High risk medication use CREATININE BLD [SQCRET] 2/2 Every 6 months 07/12/25 07/12/24 Auth. provider: Ginny Cooper MD Assoc. diagnoses: Seronegative rheumatoid arthritis (HCC), High risk medication use UREA NITROGEN [SQBUN] 2/2 Every 6 months 07/12/25 07/12/24 Auth. provider: Ginny Cooper MD Assoc. diagnoses: Seronegative rheumatoid arthritis (HCC), High risk medication use SEDIMENTATION RATE, WESTERGREN [SQWSR] 2/2 Every 6 months 07/12/25 07/12/24 Auth. provider: Ginny Cooper MD Assoc. diagnoses: Seronegative rheumatoid arthritis (HCC), High risk medication use Open Future (Single Instance) Lab Orders None [facility] 03-13-2025 Miscellaneous Notes Most recent Rheumatology visit: 01/09/2025 (with Ginny Cooper) Last Bone Density on file: None on file Rheumatology Care Team: None on file Recent Office Visits - This Specialty 01/09/2025 Seronegative rheumatoid arthritis (HCC) Rheumatology Ginny Cooper MD 07/12/2024 Seronegative rheumatoid arthritis (HCC) Rheumatology Ginny Cooper MD 01/12/2024 Seronegative rheumatoid arthritis (HCC) Rheumatology Ginny Cooper MD Upcoming Rheumatology Appointments - Next 365 Days No appointments to display Last Ophthalmology Check for Plaquenil (Hydroxychloroquine) Last OCT Macula Exam No resulted procedures found. Last Visual Field Exam No resulted procedures found. CBC: Latest Ref Rng & Units 12/21/2023 01/09/2025 CBC WBC 3.70 - 11.00 k/uL 4.90 6.68 Hemoglobin 11.5 - 15.5 g/dL 13.6 13.4 Hematocrit 36.0 - 46.0 % 42.0 40.2 Platelet Count 150 - 400 k/uL 228 196 Abs Neut (ANC) 1.45 - 7.50 k/uL 3.01 4.28 Abs Lymph 1.00 - 4.00 k/uL 1.16 1.54 Vitamin D: None on file in the last 6 months LFT: None on file in the last 6 months Hepatic Function: Creatinine: Latest Ref Rng & Units 12/21/2023 01/09/2025 Creatinine Creatinine 0.58 - 0.96 mg/dL 0.63 0.59 ESR/CRP: Latest Ref Rng & Units 12/21/2023 01/09/2025 ESR, WSR WSR 0 - 20 mm/hr 5 5 Latest Ref Rng & Units 12/21/2023 01/09/2025 CRP CRP <0.9 mg/dL <0.3 0.3 Uric Acid: None on file in the last 6 months Open Standing (Multiple Instance) Lab Orders Remain Interval Expires Ordered Last Rel. ALANINE AMINOTRANSFERASE / SGPT [SQALT] 2/2 Every 6 months 07/12/25 07/12/24 Auth. provider: Ginny Cooper MD Assoc. diagnoses: Seronegative rheumatoid arthritis (HCC), High risk medication use ASPARTATE AMINOTRANSFERASE/SGOT [SQAST] 2/2 Every 6 months 07/12/25 07/12/24 Auth. provider: Ginny Cooper MD Assoc. diagnoses: Seronegative rheumatoid arthritis (HCC), High risk medication use COMPLETE BLOOD COUNT AND DIFFERENTIAL [SQCBCDIF] 2/2 Every 6 months 07/12/25 07/12/24 Auth. provider: Ginny Cooper MD Assoc. diagnoses: Seronegative rheumatoid arthritis (HCC), High risk medication use C-REACTIVE PROTEIN [SQCRP] 2/2 Every 6 months 07/12/25 07/12/24 Auth. provider: Ginny Cooper MD Assoc. diagnoses: Seronegative rheumatoid arthritis (HCC), High risk medication use CREATININE BLD [SQCRET] 2/2 Every 6 months 07/12/25 07/12/24 Auth. provider: Ginny Cooper MD Assoc. diagnoses: Seronegative rheumatoid arthritis (HCC), High risk medication use UREA NITROGEN [SQBUN] 2/2 Every 6 months 07/12/25 07/12/24 Auth. provider: Ginny Cooper MD Assoc. diagnoses: Seronegative rheumatoid arthritis (HCC), High risk medication use SEDIMENTATION RATE, WESTERGREN [SQWSR] 2/2 Every 6 months 07/12/25 07/12/24 Auth. provider: Ginny Cooper MD Assoc. diagnoses: Seronegative rheumatoid arthritis (HCC), High risk medication use Open Future (Single Instance) Lab Orders None documented in this encounter [facility] 01-16-2025 Telephone encounter Note Requesting refill on Plaquenil. Script pended. [employer] message sent to pt asking about Plaquenil eye exam. Thank you. Most recent Rheumatology visit: 01/09/2025 (with Ginny Cooper) Last Bone Density on file: None on file Rheumatology Care Team: None on file Recent Office Visits - This Specialty 01/09/2025 Seronegative rheumatoid arthritis (HCC) Rheumatology Ginny Cooper MD 07/12/2024 Seronegative rheumatoid arthritis (HCC) Rheumatology Ginny Cooper MD 01/12/2024 Seronegative rheumatoid arthritis (HCC) Rheumatology Ginny Cooper MD Upcoming Rheumatology Appointments - Next 365 Days No appointments to display CBC: Latest Ref Rng & Units 12/21/2023 01/09/2025 CBC WBC 3.70 - 11.00 k/uL 4.90 6.68 Hemoglobin 11.5 - 15.5 g/dL 13.6 13.4 Hematocrit 36.0 - 46.0 % 42.0 40.2 Platelet Count 150 - 400 k/uL 228 196 Abs Neut (ANC) 1.45 - 7.50 k/uL 3.01 4.28 Abs Lymph 1.00 - 4.00 k/uL 1.16 1.54 Vitamin D: None on file in the last 6 months LFT: None on file in the last 6 months Hepatic Function: Creatinine: Latest Ref Rng & Units 12/21/2023 01/09/2025 Creatinine Creatinine 0.58 - 0.96 mg/dL 0.63 0.59 ESR/CRP: Latest Ref Rng & Units 12/21/2023 01/09/2025 ESR, WSR WSR 0 - 20 mm/hr 5 5 Latest Ref Rng & Units 12/21/2023 01/09/2025 CRP CRP <0.9 mg/dL <0.3 0.3 Uric Acid: None on file in the last 6 months Open Standing (Multiple Instance) Lab Orders Remain Interval Expires Ordered Last Rel. ALANINE AMINOTRANSFERASE / SGPT [SQALT] 2/2 Every 6 months 07/12/25 07/12/24 Auth. provider: Ginny Cooper MD Assoc. diagnoses: Seronegative rheumatoid arthritis (HCC), High risk medication use ASPARTATE AMINOTRANSFERASE/SGOT [SQAST] 2/2 Every 6 months 07/12/25 07/12/24 Auth. provider: Ginny Cooper MD Assoc. diagnoses: Seronegative rheumatoid arthritis (HCC), High risk medication use COMPLETE BLOOD COUNT AND DIFFERENTIAL [SQCBCDIF] 2/2 Every 6 months 07/12/25 07/12/24 Auth. provider: Ginny Cooper MD Assoc. diagnoses: Seronegative rheumatoid arthritis (HCC), High risk medication use C-REACTIVE PROTEIN [SQCRP] 2/2 Every 6 months 07/12/25 07/12/24 Auth. provider: Ginny Cooper MD Assoc. diagnoses: Seronegative rheumatoid arthritis (HCC), High risk medication use CREATININE BLD [SQCRET] 2/2 Every 6 months 07/12/25 07/12/24 Auth. provider: Ginny Cooper MD Assoc. diagnoses: Seronegative rheumatoid arthritis (HCC), High risk medication use UREA NITROGEN [SQBUN] 2/2 Every 6 months 07/12/25 07/12/24 Auth. provider: Ginny Cooper MD Assoc. diagnoses: Seronegative rheumatoid arthritis (HCC), High risk medication use SEDIMENTATION RATE, WESTERGREN [SQWSR] 2/2 Every 6 months 07/12/25 07/12/24 Auth. provider: Ginny Cooper MD Assoc. diagnoses: Seronegative rheumatoid arthritis (HCC), High risk medication use Open Future (Single Instance) Lab Orders None [facility] 01-16-2025 Miscellaneous Notes Requesting refill on Plaquenil. Script pended. [employer] message sent to pt asking about Plaquenil eye exam. Thank you. Most recent Rheumatology visit: 01/09/2025 (with Ginny Cooper) Last Bone Density on file: None on file Rheumatology Care Team: None on file Recent Office Visits - This Specialty 01/09/2025 Seronegative rheumatoid arthritis (HCC) Rheumatology Ginny Cooper MD 07/12/2024 Seronegative rheumatoid arthritis (HCC) Rheumatology Ginny Cooper MD 01/12/2024 Seronegative rheumatoid arthritis (HCC) Rheumatology Ginny Cooper MD Upcoming Rheumatology Appointments - Next 365 Days No appointments to display CBC: Latest Ref Rng & Units 12/21/2023 01/09/2025 CBC WBC 3.70 - 11.00 k/uL 4.90 6.68 Hemoglobin 11.5 - 15.5 g/dL 13.6 13.4 Hematocrit 36.0 - 46.0 % 42.0 40.2 Platelet Count 150 - 400 k/uL 228 196 Abs Neut (ANC) 1.45 - 7.50 k/uL 3.01 4.28 Abs Lymph 1.00 - 4.00 k/uL 1.16 1.54 Vitamin D: None on file in the last 6 months LFT: None on file in the last 6 months Hepatic Function: Creatinine: Latest Ref Rng & Units 12/21/2023 01/09/2025 Creatinine Creatinine 0.58 - 0.96 mg/dL 0.63 0.59 ESR/CRP: Latest Ref Rng & Units 12/21/2023 01/09/2025 ESR, WSR WSR 0 - 20 mm/hr 5 5 Latest Ref Rng & Units 12/21/2023 01/09/2025 CRP CRP <0.9 mg/dL <0.3 0.3 Uric Acid: None on file in the last 6 months Open Standing (Multiple Instance) Lab Orders Remain Interval Expires Ordered Last Rel. ALANINE AMINOTRANSFERASE / SGPT [SQALT] 2/2 Every 6 months 07/12/25 07/12/24 Auth. provider: Ginny Cooper MD Assoc. diagnoses: Seronegative rheumatoid arthritis (HCC), High risk medication use ASPARTATE AMINOTRANSFERASE/SGOT [SQAST] 2/2 Every 6 months 07/12/25 07/12/24 Auth. provider: Ginny Cooper MD Assoc. diagnoses: Seronegative rheumatoid arthritis (HCC), High risk medication use COMPLETE BLOOD COUNT AND DIFFERENTIAL [SQCBCDIF] 2/2 Every 6 months 07/12/25 07/12/24 Auth. provider: Ginny Cooper MD Assoc. diagnoses: Seronegative rheumatoid arthritis (HCC), High risk medication use C-REACTIVE PROTEIN [SQCRP] 2/2 Every 6 months 07/12/25 07/12/24 Auth. provider: Ginny Cooper MD Assoc. diagnoses: Seronegative rheumatoid arthritis (HCC), High risk medication use CREATININE BLD [SQCRET] 2/2 Every 6 months 07/12/25 07/12/24 Auth. provider: Ginny Cooper MD Assoc. diagnoses: Seronegative rheumatoid arthritis (HCC), High risk medication use UREA NITROGEN [SQBUN] 2/2 Every 6 months 07/12/25 07/12/24 Auth. provider: Ginny Cooper MD Assoc. diagnoses: Seronegative rheumatoid arthritis (HCC), High risk medication use SEDIMENTATION RATE, WESTERGREN [SQWSR] 2/2 Every 6 months 07/12/25 07/12/24 Auth. provider: Ginny Cooper MD Assoc. diagnoses: Seronegative rheumatoid arthritis (HCC), High risk medication use Open Future (Single Instance) Lab Orders None documented in this encounter [facility] 01-09-2025 Instructions Ginny Cooper MD - 01/09/2025 2:29 PM EDT Labs and Xray today I will contact you through [employer] for results documented in this encounter [facility] 01-09-2025 History of Present illness Narrative MD Nikki Box January 09, 2025 Referring Provider: PCP: Alyssa Philip MD Chief Complaint: Patient presents with: Recheck Background Rheumatologic History: She has been dealing with chronic mild joint pain for years. However, over the past 4 months, the pain becomes much more intense. The pain is mainly located in her joints, including this, MCPs, PIPs, elbows, shoulders, knees and ankles. She describes morning pain although this does not happen every day. Also describes morning stiffness that can last for many hours. She does describe gelling phenomena and states that physical inactivity can aggravate the pain (even though too much physical activities can aggravate the pain as well). She has a long history of skin eczema but no history of psoriasis. She has been seen by her local doctor who prescribes meloxicam. Meloxicam helps with her pain significantly. Review of systems is positive for hair loss, sicca and intermittent dysphagia. The patient denies RP, oral ulcer, malar, pleurisy, diarrhea, photosensitivity, uveitis. The patient denies family history of RA, SLE, , psoriasis, IBD, uveitis, other autoimmune diseases. Labs from outside hospital RF + CCP neg CRP 6 ESR normal SUZIE + XR osteoarthritic changes The diagnosis of seropositive rheumatoid arthritis is made based on the presence of true inflammatory arthritis (examination plus elevated CRP) in symmetric pattern plus positive rheumatoid factor. I think that she also has baseline osteoarthritis based on the changes observed on x-rays. I started HCQ. Since she was doing well with meloxicam, I did not think that she would need low-dose steroid as a bridging therapy. I continued meloxicam daily. F/U 11/13/20 She misunderstood me and is taking Plaquenil only 200 mg daily. However, she is doing significantly better. Pain and swelling are gone. I continued Plaquenil 200 mg daily. F/U 04/01/21 Some residual inflammation on my examination. I increased Plaquenil to the standard dose of 400 mg/day. F/U 06/24/21 In remission. I continued Plaquenil 400 mg daily. F/U 12/23/21 In remission. I continued Plaquenil 400 mg daily. F/U 07/01/22 In remission. I continued Plaquenil 400 mg daily. F/U 12/29/22 In remission. I continued Plaquenil 400 mg daily. F/U 06/30/23 In remission. I continued Plaquenil 400 mg daily. F/U 01/12/24 In remission. I continued Plaquenil 400 mg daily. F/U 07/12/24 In remission. I continued Plaquenil 400 mg daily. Interim History: Patient returns for follow up, last visit 01/12/2024. She is more or less stable except for some increase in pain in her knees and hips with climbing up and down stairs. 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 Mcintosh DILATION & CURETTAGE DX&/THER NONOBSTETRIC Dilation & curettage MIDLINE INSERTION/CONSULT 02/12/2018 PAST SURGICAL HISTORY OF 08/1999 bladder repair posterior repair with EVI RECTAL REPAIR W OR W/O MESH REMV CATARACT EXTRACAP,INSERT LENS TOTAL ABDOMINAL HYSTERECT W/WO RMVL TUBE OVARY 08/1999 Hysterectomy, EVI Social History Tobacco Use Smoking status: Never Smokeless tobacco: Never Vaping Use Vaping status: Never Used Substance Use Topics Alcohol use: Yes Comment: wine on occasion Drug use: Not Currently Health Maintenance Annual PCP Team Chronic Disease Visit Never done Depression Screening Never done Anxiety Screening Never done Hepatitis C Screening Never done DTaP,Tdap,Td Vaccine(1 - Tdap) Never done Mammogram Screening Never done Lipid Screening Never done Bone Density Screening Never done Diabetes Screening due on 02/17/2021 Covid-19 Vaccine( season) due on 05/15/2024 Advance Directive Discussion Never done Immunization History Administered Date(s) Administered COVID-19 original vaccine, full dose, monovalent (MODERNA) 09/24/2020 10/23/2020 09/11/2021 COVID-19 vaccine, age 12+ yr, bivalent (R-B Acquisition) 06/18/2022 Current Outpatient Medications Medication Sig Dispense Refill hydrOXYchloroQUINE (PLAQUENIL) 200 mg tablet Take 1 tablet by mouth two times a day. 180 tablet 3 triamcinolone acetonide (KENALOG) 0.5 % cream APPLY CREAM TOPICALLY TO AFFECTED AREA ONCE DAILY levothyroxine (SYNTHROID) 112 mcg tablet Take 112 mcg by mouth once daily. MIRALAX POWDER 17 gm po qd with 4 oz of liquid 1 bottle 3 iv contrast (will be provided with radiology test) MRA Brain Inject, intravenously, once for 1 dose. No IV access, insert saline lock prior to the beginning of sedation, infusion, injection of imaging exam. Discontinue saline lock post exam. If Pt. has a central line or IVAD, may access for administration according to line specific nursing protocol. Once exam is complete flush line and de-access according to line specific nursing protocol in the MR contrast administration guidelines link. (Patient not taking: Reported on 01/09/2025) 1 Each 0 iv contrast (will be provided with radiology test) MRI Brain Inject, intravenously, once for 1 dose.No IV access, insert saline lock prior to beginning of sedation, infusion, injection of imaging exam.Discontinue saline lock post exam. If Pt. has a central line or IVAD, may access for administration according to line specific nursing protocol.Once exam is complete flush line and de-access according to line specific nursing protocol in the MR contrast administration guidelines link (Patient not taking: Reported on 01/09/2025) 1 Each 0 aspirin 81 mg chewable tablet Take 1 tablet by mouth once daily. 30 tablet 2 No current facility-administered medications for this visit. ALLERGIES No Active Allergies Physical Exam: There were no vitals taken for this visit. General: Not pale, no jaundice, not in acute distress Head: Normocephalic, atraumatic Eyes: No redeye, no discharge ENT: No oral/nasal ulcer Neck: No lymphadenopathy Lungs: Normal breath sound, no adventitious sound Abdomen: Soft, not tender CV: Normal S1 S2, no murmur, no rub, pulse regular Skin: No rash, no malar rash, no telangiectasia, no pitting nail/onycholysis, no gross periungual telangiectasia Neuro: Grossly intact, motor power 5 all Joints No active synovitis Impression: 1. Seropositive rheumatoid arthritis 2. High risk medication use 3. Bilateral knee and hip pain I think that she is doing well from RA standpoint as I could not see any evidence of active synovitis on my exam today. Her current hip and knee pain are likely caused by osteoarthritis. I will obtain labs and x-ray to confirm this. Recommendations/Plan Plan discussed with patient Already discussed with her that if I can confirm that her pain is caused by osteoarthritis, I would recommend Tylenol as needed along with home physical therapy. Return Visit: I will contact her through [employer] for results. We will make a plan after the results are available. I spent a total of 40 minutes on the date of the service which included preparing to see the patient, [id number] patient care, completing clinical documentation, obtaining and/or reviewing separately obtained history, performing a medically appropriate examination, counseling and educating the patient/family/caregiver, and ordering medications, tests, or procedures. Ginny Cooper MD Referring Provider: PCP: Alyssa Philip MD Answers submitted by the patient for this visit: Review of Systems Rheumatology (Submitted on 01/08/2025) Fever : No Recent unintentional weight change: No Eye pain: No Eye redness: No Vision Disturbance: No Eye Dryness: No Nosebleeds: Yes Sores in your mouth: No Trouble Swallowing: Yes Dry Mouth: No Chest pain: No Leg Swelling: No A cough: Yes Blood when you cough: No Shortness of breath: No Pain with breathing: No Heartburn: Yes Abdominal pain: No Diarrhea: No Black tarry stools: No Blood in urine: No Pain or burning with urination: No Joint pain or stiffness: Yes Muscle weakness: Yes Muscle aches: Yes Joint swelling: Yes Morning Stiffness in Joints: Yes A rash: No Skin Color Changes: No Hair Loss: No Nail Changes: No Headaches: No Numbness: No Memory Loss: No Swollen Glands: No documented in this encounter [facility] 01-09-2025 Note HNO ID: [id number] Author: GINNY COOPER MD Service: ? Author Type: Physician Type: Progress Notes Filed: 01/09/2025 14:47 Note Text: Ginny Cooper MD Nikki Hendrix Cortez January 09, 2025 Referring Provider: PCP: Alyssa Philip MD Chief Complaint: Patient presents with: Recheck Background Rheumatologic History: She has been dealing with chronic mild joint pain for years. However, over the past 4 months, the pain becomes much more intense. The pain is mainly located in her joints, including this, MCPs, PIPs, elbows, shoulders, knees and ankles. She describes morning pain although this does not happen every day. Also describes morning stiffness that can last for many hours. She does describe gelling phenomena and states that physical inactivity can aggravate the pain (even though too much physical activities can aggravate the pain as well). She has a long history of skin eczema but no history of psoriasis. She has been seen by her local doctor who prescribes meloxicam. Meloxicam helps with her pain significantly. Review of systems is positive for hair loss, sicca and intermittent dysphagia. The patient denies RP, oral ulcer, malar, pleurisy, diarrhea, photosensitivity, uveitis. The patient denies family history of RA, SLE, , psoriasis, IBD, uveitis, other autoimmune diseases. Labs from outside hospital RF + CCP neg CRP 6 ESR normal SUZIE + XR osteoarthritic changes The diagnosis of seropositive rheumatoid arthritis is made based on the presence of true inflammatory arthritis (examination plus elevated CRP) in symmetric pattern plus positive rheumatoid factor. I think that she also has baseline osteoarthritis based on the changes observed on x-rays. I started HCQ. Since she was doing well with meloxicam, I did not think that she would need low-dose steroid as a bridging therapy. I continued meloxicam daily. F/U 11/13/20 She misunderstood me and is taking Plaquenil only 200 mg daily. However, she is doing significantly better. Pain and swelling are gone. I continued Plaquenil 200 mg daily. F/U 04/01/21 Some residual inflammation on my examination. I increased Plaquenil to the standard dose of 400 mg/day. F/U 06/24/21 In remission. I continued Plaquenil 400 mg daily. F/U 12/23/21 In remission. I continued Plaquenil 400 mg daily. F/U 07/01/22 In remission. I continued Plaquenil 400 mg daily. F/U 12/29/22 In remission. I continued Plaquenil 400 mg daily. F/U 06/30/23 In remission. I continued Plaquenil 400 mg daily. F/U 01/12/24 In remission. I continued Plaquenil 400 mg daily. F/U 07/12/24 In remission. I continued Plaquenil 400 mg daily. Interim History: Patient returns for follow up, last visit 01/12/2024. She is more or less stable except for some increase in pain in her knees and hips with climbing up and down stairs. 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 Mcintosh DILATION AND CURETTAGE DXAND/THER NONOBSTETRIC Dilation AND curettage MIDLINE INSERTION/CONSULT 02/12/2018 PAST SURGICAL HISTORY OF 08/1999 bladder repair posterior repair with EVI RECTAL REPAIR W OR W/O MESH REMV CATARACT EXTRACAP,INSERT LENS TOTAL ABDOMINAL HYSTERECT W/WO RMVL TUBE OVARY 08/1999 Hysterectomy, EVI Social History Tobacco Use Smoking status: Never Smokeless tobacco: Never Vaping Use Vaping status: Never Used Substance Use Topics Alcohol use: Yes Comment: wine on occasion Drug use: Not Currently Health Maintenance Annual PCP Team Chronic Disease Visit Never done Depression Screening Never done Anxiety Screening Never done Hepatitis C Screening Never done DTaP,Tdap,Td Vaccine(1 - Tdap) Never done Mammogram Screening Never done Lipid Screening Never done Bone Density Screening Never done Diabetes Screening due on 02/17/2021 Covid-19 Vaccine() due on 05/15/2024 Advance Directive Discussion Never done Immunization History Administered Date(s) Administered COVID-19 original vaccine, full dose, monovalent (MODERNA) 09/24/2020 10/23/2020 09/11/2021 COVID-19 vaccine, age 12+ yr, bivalent (PFIZER-BIONTECH) 06/18/2022 Current Outpatient Medications Medication Sig Dispense Refill hydrOXYchloroQUINE (PLAQUENIL) 200 mg tablet Take 1 tablet by mouth two times a day. 180 tablet 3 triamcinolone acetonide (KENALOG) 0.5 % cream APPLY CREAM TOPICALLY TO AFFECTED AREA ONCE DAILY levothyroxine (SYNTHROID) 112 mcg tablet Take 112 mcg by mouth once daily. MIRALAX POWDER 17 gm po qd with 4 oz of liquid (more content not included)... [facility] 07-12-2024 History of Present illness Narrative VIRTUAL VISIT PROGRESS NOTE This is a virtual visit using [employer] Video Visit. It required patient-provider interaction for the medical decision making as documented below. I have communicated my name and active licensure. The patient's identity and physical location were verified at the time of this visit. Either the patient or their legal branch customer service representative has been informed of the risks and benefits of -- and alternatives to -- treatment through a remote evaluation and consents to proceed with the evaluation remotely. MD Nikki Box July 11, 2024 Referring Provider: PCP: Alyssa Philip MD Chief Complaint: Patient presents with: Recheck Background Rheumatologic History: She has been dealing with chronic mild joint pain for years. However, over the past 4 months, the pain becomes much more intense. The pain is mainly located in her joints, including this, MCPs, PIPs, elbows, shoulders, knees and ankles. She describes morning pain although this does not happen every day. Also describes morning stiffness that can last for many hours. She does describe gelling phenomena and states that physical inactivity can aggravate the pain (even though too much physical activities can aggravate the pain as well). She has a long history of skin eczema but no history of psoriasis. She has been seen by her local doctor who prescribes meloxicam. Meloxicam helps with her pain significantly. Review of systems is positive for hair loss, sicca and intermittent dysphagia. The patient denies RP, oral ulcer, malar, pleurisy, diarrhea, photosensitivity, uveitis. The patient denies family history of RA, SLE, , psoriasis, IBD, uveitis, other autoimmune diseases. Labs from outside hospital RF + CCP neg CRP 6 ESR normal SUZIE + XR osteoarthritic changes The diagnosis of seropositive rheumatoid arthritis is made based on the presence of true inflammatory arthritis (examination plus elevated CRP) in symmetric pattern plus positive rheumatoid factor. I think that she also has baseline osteoarthritis based on the changes observed on x-rays. I started HCQ. Since she was doing well with meloxicam, I did not think that she would need low-dose steroid as a bridging therapy. I continued meloxicam daily. F/U 11/13/20 She misunderstood me and is taking Plaquenil only 200 mg daily. However, she is doing significantly better. Pain and swelling are gone. I continued Plaquenil 200 mg daily. F/U 04/01/21 Some residual inflammation on my examination. I increased Plaquenil to the standard dose of 400 mg/day. F/U 06/24/21 In remission. I continued Plaquenil 400 mg daily. F/U 12/23/21 In remission. I continued Plaquenil 400 mg daily. F/U 07/01/22 In remission. I continued Plaquenil 400 mg daily. F/U 12/29/22 In remission. I continued Plaquenil 400 mg daily. F/U 06/30/23 In remission. I continued Plaquenil 400 mg daily. F/U 01/12/24 In remission. I continued Plaquenil 400 mg daily. Interim History: Patient returns for follow up, last visit 01/12/2024. Continues to have some stiffness in the morning but no pain per se. Complain of mild dysphagia and heartburn. Did eye exam in summer and it was normal. 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 Mcintosh DILATION & CURETTAGE DX&/THER NONOBSTETRIC Dilation & curettage MIDLINE INSERTION/CONSULT 02/12/2018 PAST SURGICAL HISTORY OF 08/1999 bladder repair posterior repair with EVI RECTAL REPAIR W OR W/O MESH REMV CATARACT EXTRACAP,INSERT LENS TOTAL ABDOMINAL HYSTERECT W/WO RMVL TUBE OVARY 08/1999 Hysterectomy, EVI Social History Tobacco Use Smoking status: Never Smokeless tobacco: Never Vaping Use Vaping status: Never Used Substance Use Topics Alcohol use: Yes Comment: wine on occasion Drug use: Not Currently Health Maintenance Annual PCP Team Chronic Disease Visit Never done Depression Screening Never done Anxiety Screening Never done Hepatitis C Screening Never done DTaP,Tdap,Td Vaccine(1 - Tdap) Never done Mammogram Screening Never done Lipid Screening Never done Bone Density Screening Never done Diabetes Screening due on 02/17/2021 Advance Directive Discussion Never done Influenza Vaccine(1) due on 05/15/2024 Covid-19 Vaccine( season) due on 05/15/2024 Immunization History Administered Date(s) Administered COVID-19 original vaccine, full dose, monovalent (MODERNA) 09/24/2020 10/23/2020 09/11/2021 COVID-19 vaccine, age 12+ yr, bivalent ([employer] Mon[employer]) 06/18/2022 Current Outpatient Medications Medication Sig Dispense Refill hydrOXYchloroQUINE (PLAQUENIL) 200 mg tablet Take 1 tablet by mouth two times a day. 180 tablet 3 triamcinolone acetonide (KENALOG) 0.5 % cream APPLY CREAM TOPICALLY TO AFFECTED AREA ONCE DAILY levothyroxine (SYNTHROID) 112 mcg tablet Take 112 mcg by mouth once daily. iv contrast (will be provided with radiology test) MRA Brain Inject, intravenously, once for 1 dose. No IV access, insert saline lock prior to the beginning of sedation, infusion, injection of imaging exam. Discontinue saline lock post exam. If Pt. has a central line or IVAD, may access for administration according to line specific nursing protocol. Once exam is complete flush line and de-access according to line specific nursing protocol in the MR contrast administration guidelines link. (Patient not taking: Reported on 01/12/2024) 1 Each 0 iv contrast (will be provided with radiology test) MRI Brain Inject, intravenously, once for 1 dose.No IV access, insert saline lock prior to beginning of sedation, infusion, injection of imaging exam.Discontinue saline lock post exam. If Pt. has a central line or IVAD, may access for administration according to line specific nursing protocol.Once exam is complete flush line and de-access according to line specific nursing protocol in the MR contrast administration guidelines link (Patient not taking: Reported on 01/12/2024) 1 Each 0 aspirin 81 mg chewable tablet Take 1 tablet by mouth once daily. 30 tablet 2 MIRALAX POWDER 17 gm po qd with 4 oz of liquid 1 bottle 3 No current facility-administered medications for this visit. ALLERGIES No Active Allergies Physical Exam: There were no vitals taken for this visit. Impression: 1. Seropositive rheumatoid arthritis 2. High risk medication use I think that her RA is still in remission with Plaquenil monotherapy. I will continue it. She will ask her ore roaster to send an eye exam report to my office. Dysphagia and heartburn probably have nothing to do for her RA. Recommend her to touch base with her PCP. Recommendations/Plan Plan discussed with patient Continue the current dose of hydroxychloroquine. Return Visit: Follow up January 09 at 2.20. Labs done 1 week before. I spent a total of 30 minutes on the date of the service which included preparing to see the patient, [id number] patient care, completing clinical documentation, obtaining and/or reviewing separately obtained history, performing a medically appropriate examination, counseling and educating the patient/family/caregiver, and ordering medications, tests, or procedures. Ginny Cooper MD Referring Provider: PCP: Alyssa Philip MD Answers submitted by the patient for this visit: Review of Systems Rheumatology (Submitted on 07/05/2024) Fever : No Recent unintentional weight change: No Eye pain: No Eye redness: No Vision Disturbance: No Eye Dryness: No Nosebleeds: No Sores in your mouth: No Trouble Swallowing: Yes Dry Mouth: No Chest pain: No Leg Swelling: No A cough: Yes Blood when you cough: No Shortness of breath: No Pain with breathing: No Heartburn: Yes Abdominal pain: No Diarrhea: No Black tarry stools: No Blood in urine: No Pain or burning with urination: No Joint pain or stiffness: No Muscle weakness: Yes Muscle aches: Yes Joint swelling: No Morning Stiffness in Joints: Yes A rash: No Skin Color Changes: No Hair Loss: No Nail Changes: No Headaches: No Numbness: No Memory Loss: No Swollen Glands: No documented in this encounter [facility] 07-12-2024 Note HNO ID: [id number] Author: GINNY COOPER MD Service: ? Author Type: Physician Type: Progress Notes Filed: 07/12/2024 16:03 Note Text: VIRTUAL VISIT PROGRESS NOTE This is a virtual visit using [employer] Video Visit. It required patient-provider interaction for the medical decision making as documented below. I have communicated my name and active licensure. The patient's identity and physical location were verified at the time of this visit. Either the patient or their legal branch customer service representative has been informed of the risks and benefits of -- and alternatives to -- treatment through a remote evaluation and consents to proceed with the evaluation remotely. MD Nikki Box July 11, 2024 Referring Provider: PCP: Alyssa Philip MD Chief Complaint: Patient presents with: Recheck Background Rheumatologic History: She has been dealing with chronic mild joint pain for years. However, over the past 4 months, the pain becomes much more intense. The pain is mainly located in her joints, including this, MCPs, PIPs, elbows, shoulders, knees and ankles. She describes morning pain although this does not happen every day. Also describes morning stiffness that can last for many hours. She does describe gelling phenomena and states that physical inactivity can aggravate the pain (even though too much physical activities can aggravate the pain as well). She has a long history of skin eczema but no history of psoriasis. She has been seen by her local doctor who prescribes meloxicam. Meloxicam helps with her pain significantly. Review of systems is positive for hair loss, sicca and intermittent dysphagia. The patient denies RP, oral ulcer, malar, pleurisy, diarrhea, photosensitivity, uveitis. The patient denies family history of RA, SLE, , psoriasis, IBD, uveitis, other autoimmune diseases. Labs from outside hospital RF + CCP neg CRP 6 ESR normal SUZIE + XR osteoarthritic changes The diagnosis of seropositive rheumatoid arthritis is made based on the presence of true inflammatory arthritis (examination plus elevated CRP) in symmetric pattern plus positive rheumatoid factor. I think that she also has baseline osteoarthritis based on the changes observed on x-rays. I started HCQ. Since she was doing well with meloxicam, I did not think that she would need low-dose steroid as a bridging therapy. I continued meloxicam daily. F/U 11/13/20 She misunderstood me and is taking Plaquenil only 200 mg daily. However, she is doing significantly better. Pain and swelling are gone. I continued Plaquenil 200 mg daily. F/U 04/01/21 Some residual inflammation on my examination. I increased Plaquenil to the standard dose of 400 mg/day. F/U 06/24/21 In remission. I continued Plaquenil 400 mg daily. F/U 12/23/21 In remission. I continued Plaquenil 400 mg daily. F/U 07/01/22 In remission. I continued Plaquenil 400 mg daily. F/U 12/29/22 In remission. I continued Plaquenil 400 mg daily. F/U 06/30/23 In remission. I continued Plaquenil 400 mg daily. F/U 01/12/24 In remission. I continued Plaquenil 400 mg daily. Interim History: Patient returns for follow up, last visit 01/12/2024. Continues to have some stiffness in the morning but no pain per se. Complain of mild dysphagia and heartburn. Did eye exam in summer and it was normal. 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 Mcintosh DILATION AND CURETTAGE DXAND/THER NONOBSTETRIC Dilation AND curettage MIDLINE INSERTION/CONSULT 02/12/2018 PAST SURGICAL HISTORY OF 08/1999 bladder repair posterior repair with EVI RECTAL REPAIR W OR W/O MESH REMV CATARACT EXTRACAP,INSERT LENS TOTAL ABDOMINAL HYSTERECT W/WO RMVL TUBE OVARY 08/1999 Hysterectomy, EVI Social History Tobacco Use Smoking status: Never Smokeless tobacco: Never Vaping Use Vaping status: Never Used Substance Use Topics Alcohol use: Yes Comment: wine on occasion Drug use: Not Currently Health Maintenance Annual PCP Team Chronic Disease Visit Never done Depression Screening Never done Anxiety Screening Never done Hepatitis C Screening Never done DTaP,Tdap,Td Vaccine(1 - Tdap) Never done Mammogram Screening Never done Lipid Screening Never done Bone Density Screening Never done Diabetes Screening due on 02/17/2021 Advance Directive Discussion Never done Influenza Vaccine(1) due on 05/15/2024 Covid-19 Vaccine( season) due on 05/15/2024 Immunization History Administered Date(s) Administered COVID- (more content not included)... [facility] 07-05-2024 Telephone encounter Note Virtual is fine [facility] 07-05-2024 Miscellaneous Notes Virtual is fine Okay to make her appt virtual? documented in this encounter [facility] 07-04-2024 Telephone encounter Note Okay to make her appt virtual? [facility] 02-29-2024 Note [facility] Medical Records Department [address] [place] [address] Discharge Summary 02/29/24 0902 MR#: [id number] Acct: [id number] Name: NIKKI TORO Rep #: [id number] : [id number] 68 From: Rick Brown MD PCP: Dr. Alyssa Philip MD Status:[facility] Location: [place] [address] Providers Primary Care Physician: Dr. Alyssa Philip MD Reason For Visit: Myringotomy,Tubes Medications at Discharge Home Medications albuterol sulfate 90 mcg/actuation aerosol inhaler 2 puff inhalation Q4H PRN PRN wheezing 02/26/24 aspirin 81 mg tablet,delayed release (Adult Low Dose Aspirin) 81 mg PO DAILY 02/26/24 hydroxychloroquine 200 mg tablet 200 mg PO BID 02/26/24 levothyroxine 112 mcg tablet 112 mcg PO DAILY 02/26/24 Weight / BMI Weight Weight: 72.5 kg Body Mass Index (BMI) 25.7 ABG / Lab / Microbiology Data 02/29/24 07:47 02/29/24 07:47 Laboratory: Laboratory Results - last 24 hr 02/29/24 07:47: WBC 5.0, RBC 4.49, Hgb 13.4, Hct 41.5, MCV 92.4, MCH 29.8, MCHC 32.3, RDW Std Deviation 44.5 H, RDW Coeff of Marie 13.1, Plt Count 253, MPV 10.0, Sodium 142, Potassium 3.9, C hloride 111 H, Carbon Dioxide 25.0, Anion Gap 6, BUN 10, Creatinine 0.61, Estim Creat Clear Calc 66.71, Est GFR (MDRD) Af Amer 124, Est GFR (MDRD) Non-Af 102, BUN/Creatinine Ratio 16.3, Glucose 98, Calcium 8.5 D/C Instructions Discharge Diet: No restrictions Discharge Activity: Return to Normal Activity Additional Instructions: Ear drops....5 drops each ear twice a day for 2 days (3 doses) Please Follow Up With: Rick Brown MD When: 3 weeks Meaningful Use Info Meaningful Use Meaningful Use Diagnoses (Choose all that apply): None applicable Ischemic Stroke Statin Dosing Therapy Reference: STATIN DOSE THERAPY REFERENCE: * Patients > 75 years receive moderate or high dose statin therapy. * Patients 75 years or YOUNGER should receive HIGH intensity statin dose unless contraindicated. You will be required to document reason for non-treatment if statin daily dose does not meet guidelines. HIGH DOSE STATIN THERAPY DAILY Atorvastatin > than or = to 40 mg Rosuvastatin > than or = to 20 mg Amlodipine + Atorvastatin > than or = to 2.5/40 mg Ezetimibe + Simvastatin 10/80 mg Simvastatin 80mg Discharge Plan Admission Attending Provider: Rick Brown Primary Care Provider: Alyssa Philip Instructions Print Language: Swedish Discharge Orders/Prescriptions Prescriptions: No Action levothyroxine 112 mcg tablet 112 mcg PO DAILY hydroxychloroquine 200 mg tablet 200 mg PO BID aspirin [Adult Low Dose Aspirin] 81 mg tablet,delayed release (DR/EC) 81 mg PO DAILY albuterol sulfate 90 mcg/actuation HFA aerosol inhaler 2 puff INHALATION Q4H PRN PRN (Reason: wheezing) Referrals / Follow Up: Alyssa Phiilp MD [Primary Care Provider] - Disposition Disposition (needs filled in before D/C Order can be placed): Home, Self Care 02/29/24 0903 Cosigner Signature (if applicable): CC: Dr. Alyssa Philip MD; Dr. Rick Brown MD Signed [facility] 01-12-2024 Instructions Ginny Cooper MD - 01/12/2024 4:13 PM EDT Follow up Jul 12 at 4 PM documented in this encounter [facility] 01-12-2024 History of Present illness Narrative MD Fela Boxa Simeon Toro January 12, 2024 Referring Provider:Alyssa Philip PCP: Alyssa Philip MD Chief Complaint: Patient presents with: Rheumatoid Arthritis Background Rheumatologic History: She has been dealing with chronic mild joint pain for years. However, over the past 4 months, the pain becomes much more intense. The pain is mainly located in her joints, including this, MCPs, PIPs, elbows, shoulders, knees and ankles. She describes morning pain although this does not happen every day. Also describes morning stiffness that can last for many hours. She does describe gelling phenomena and states that physical inactivity can aggravate the pain (even though too much physical activities can aggravate the pain as well). She has a long history of skin eczema but no history of psoriasis. She has been seen by her local doctor who prescribes meloxicam. Meloxicam helps with her pain significantly. Review of systems is positive for hair loss, sicca and intermittent dysphagia. The patient denies RP, oral ulcer, malar, pleurisy, diarrhea, photosensitivity, uveitis. The patient denies family history of RA, SLE, , psoriasis, IBD, uveitis, other autoimmune diseases. Labs from outside hospital RF + CCP neg CRP 6 ESR normal SUZIE + XR osteoarthritic changes The diagnosis of seropositive rheumatoid arthritis is made based on the presence of true inflammatory arthritis (examination plus elevated CRP) in symmetric pattern plus positive rheumatoid factor. I think that she also has baseline osteoarthritis based on the changes observed on x-rays. I started HCQ. Since she was doing well with meloxicam, I did not think that she would need low-dose steroid as a bridging therapy. I continued meloxicam daily. F/U 11/13/20 She misunderstood me and is taking Plaquenil only 200 mg daily. However, she is doing significantly better. Pain and swelling are gone. I continued Plaquenil 200 mg daily. F/U 04/01/21 Some residual inflammation on my examination. I increased Plaquenil to the standard dose of 400 mg/day. F/U 06/24/21 In remission. I continued Plaquenil 400 mg daily. F/U 12/23/21 In remission. I continued Plaquenil 400 mg daily. F/U 07/01/22 In remission. I continued Plaquenil 400 mg daily. F/U 12/29/22 In remission. I continued Plaquenil 400 mg daily. F/U 06/30/23 In remission. I continued Plaquenil 400 mg daily. Interim History: Patient returns for follow up, last visit 06/30/2023. She continues to do well. No flare. Scheduled to have eye exam again next month. 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 Unspecified hypothyroidism PAST SURGICAL HISTORY Procedure Laterality Date APPENDECTOMY ARTERIAL EMBOLIZATION (AG) DILATION & CURETTAGE DX&/THER NONOBSTETRIC Dilation & curettage MIDLINE INSERTION/CONSULT 02/12/2018 PAST SURGICAL HISTORY OF 08/1999 bladder repair posterior repair with EVI RECTAL REPAIR W OR W/O MESH REMV CATARACT EXTRACAP,INSERT LENS TOTAL ABDOMINAL HYSTERECT W/WO RMVL TUBE OVARY 08/1999 Hysterectomy, EVI Social History Tobacco Use Smoking status: Never Smokeless tobacco: Never Vaping Use Vaping Use: Never used Substance Use Topics Alcohol use: Yes Comment: wine on occasion Drug use: Not Currently Health Maintenance Annual PCP Team Chronic Disease Visit Never done Hepatitis C Screening Never done DTaP,Tdap,Td Vaccine(1 - Tdap) Never done Mammogram Screening Never done Lipid Screening Never done RSV Vaccine(1 - 1-dose 60+ series) Never done Bone Density Screening Never done Diabetes Screening due on 02/17/2021 Covid-19 Vaccine(2022-24 season) due on 05/15/2023 Advance Directive Discussion Never done Behavioral Health Screening Never done Immunization History Administered Date(s) Administered COVID-19 original vaccine, full dose, monovalent (MODERNA) 09/24/2020 10/23/2020 09/11/2021 COVID-19 vaccine, age 12+ yr, bivalent ([employer]ION[employer] Mon[employer]) 06/18/2022 Current Outpatient Medications Medication Sig Dispense Refill triamcinolone acetonide (KENALOG) 0.5 % cream APPLY CREAM TOPICALLY TO AFFECTED AREA ONCE DAILY levothyroxine (SYNTHROID) 112 mcg tablet Take 112 mcg by mouth once daily. MIRALAX POWDER 17 gm po qd with 4 oz of liquid 1 bottle 3 hydrOXYchloroQUINE (PLAQUENIL) 200 mg tablet Take 1 tablet by mouth two times a day. 180 tablet 3 iv contrast (will be provided with radiology test) MRA Brain Inject, intravenously, once for 1 dose. No IV access, insert saline lock prior to the beginning of sedation, infusion, injection of imaging exam. Discontinue saline lock post exam. If Pt. has a central line or IVAD, may access for administration according to line specific nursing protocol. Once exam is complete flush line and de-access according to line specific nursing protocol in the MR contrast administration guidelines link. (Patient not taking: Reported on 01/12/2024) 1 Each 0 iv contrast (will be provided with radiology test) MRI Brain Inject, intravenously, once for 1 dose.No IV access, insert saline lock prior to beginning of sedation, infusion, injection of imaging exam.Discontinue saline lock post exam. If Pt. has a central line or IVAD, may access for administration according to line specific nursing protocol.Once exam is complete flush line and de-access according to line specific nursing protocol in the MR contrast administration guidelines link (Patient not taking: Reported on 01/12/2024) 1 Each 0 aspirin 81 mg chewable tablet Take 1 tablet by mouth once daily. 30 tablet 2 No current facility-administered medications for this visit. ALLERGIES No Active Allergies Physical Exam: Ht 5' 6 (1.68m) Wt 158 lb (71.7kg) BMI 25.51 kg/(m^2). General: Not pale, no jaundice, not in acute distress Head: Normocephalic, atraumatic Eyes: No redeye, no discharge ENT: No oral/nasal ulcer Neck: No lymphadenopathy Lungs: Normal breath sound, no adventitious sound Abdomen: Soft, not tender CV: Normal S1 S2, no murmur, no rub, pulse regular Skin: No rash, no malar rash, no telangiectasia, no pitting nail/onycholysis, no gross periungual telangiectasia Neuro: Grossly intact, motor power 5 all Joints LEFT Shoulder Full ROM, not tender Elbow Full ROM, not tender, not swollen Wrist Full ROM, not tender, not swollen 2nd MCP Not tender, not swollen 3rd MCP Not tender, not swollen 4th MCP Not tender, not swollen 5th MCP Not tender, not swollen 1st IP Not tender, not swollen 2nd PIP Not tender, not swollen 3rd PIP Not tender, not swollen 4th PIP Not tender, not swollen 5th PIP Not tender, not swollen 2nd DIP Not tender, not swollen 3rd DIP Not tender, not swollen 4th DIP Not tender, not swollen 5th DIP Not tender, not swollen Hip Full ROM Knee Full ROM, not tender, no effusion Ankle Not tender, not swollen Squeezing test Negative RIGHT Shoulder Full ROM, not tender Elbow Full ROM, not tender, not swollen Wrist Full ROM, not tender, not swollen 2nd MCP Not tender, not swollen 3rd MCP Not tender, not swollen 4th MCP Not tender, not swollen 5th MCP Not tender, not swollen 1st IP Not tender, not swollen 2nd PIP Not tender, not swollen 3rd PIP Not tender, not swollen 4th PIP Not tender, not swollen 5th PIP Not tender, not swollen 2nd DIP Not tender, not swollen 3rd DIP Not tender, not swollen 4th DIP Not tender, not swollen 5th DIP Not tender, not swollen Hip Full ROM Knee Full ROM, not tender, no effusion Ankle Not tender, not swollen Squeezing test Negative Impression: 1. Seropositive rheumatoid arthritis 2. High risk medication use She continues to do well. No flare. I will continue hydroxychloroquine monotherapy. She will do eye exam every year. Recommendations/Plan Plan discussed with patient Return Visit: Follow up Oct 29 at 4 PM I spent a total of 30 minutes on the date of the service which included preparing to see the patient, [id number] patient care, completing clinical documentation, obtaining and/or reviewing separately obtained history, performing a medically appropriate examination, counseling and educating the patient/family/caregiver, and ordering medications, tests, or procedures. iGnny Cooper MD Referring Provider:Alyssa Philip PCP: Alyssa Philip MD Answers submitted by the patient for this visit: Review of Systems Rheumatology (Submitted on 01/11/2024) Eye pain: No Eye redness: No Vision Disturbance: No Eye Dryness: No Nosebleeds: No Sores in your mouth: No Trouble Swallowing: No Dry Mouth: No Chest pain: No Leg Swelling: No A cough: No Shortness of breath: No Pain with breathing: No Heartburn: No Abdominal pain: No Diarrhea: No Black tarry stools: No Blood in urine: No Pain or burning with urination: No Joint pain or stiffness: No Muscle weakness: No Muscle aches: No Joint swelling: No Morning Stiffness in Joints: Yes A rash: No Skin Color Changes: No Hair Loss: No Nail Changes: No Headaches: No Numbness: No Memory Loss: No Swollen Glands: No documented in this encounter [facility] 12-28-2023 Miscellaneous Notes Images from the original note were not included. Most recent Rheumatology visit: 06/30/2023 (with Ginny Cooper) Rheumatology Care Team: None on file Recent Office Visits - This Specialty 06/30/2023 Seronegative rheumatoid arthritis (HCC) Rheumatology Ginny Cooper MD 12/29/2022 Seronegative rheumatoid arthritis (HCC) Rheumatology Ginny Cooper MD 07/01/2022 Seropositive rheumatoid arthritis (HCC) Rheumatology Ginny Cooper MD Upcoming Rheumatology Appointments - Next 365 Days Visit Type Date Time Department [facility] 01/12/2024 4:00 PM [facility] Last Ophthalmology Check for Plaquenil (Hydroxychloroquine) Last OCT Macula Exam No resulted procedures found. Last Visual Field Exam No resulted procedures found. CBC: Latest Ref Rng & Units 02/17/2018 12/21/2023 CBC WBC 3.70 - 11.00 k/uL 6.43 4.90 Hemoglobin 11.5 - 15.5 g/dL 13.2 13.6 Hematocrit 36.0 - 46.0 % 39.3 42.0 Platelet Count 150 - 400 k/uL 269 228 Abs Neut (ANC) 1.45 - 7.50 k/uL 3.85 3.01 Abs Lymph 1.00 - 4.00 k/uL 1.88 1.16 Vitamin D: None on file in the last 6 months LFT: None on file in the last 6 months Hepatic Function: Creatinine: Latest Ref Rng & Units 08/26/2018 12/21/2023 Creatinine Creatinine 0.58 - 0.96 mg/dL 0.60 0.63 ESR/CRP: Latest Ref Rng & Units 02/12/2018 12/21/2023 ESR, WSR WSR 0 - 20 mm/hr 5 5 Latest Ref Rng & Units 02/12/2018 12/21/2023 CRP CRP <0.9 mg/dL 0.7 <0.3 Uric Acid: None on file in the last 6 months Open Standing (Multiple Instance) Lab Orders Remain Interval Expires Ordered Last Rel. ALT/SGPT [SQALT] 3/4 Every 3 months 11/18/24 11/19/23 12/21/23 Auth. provider: Ginny Cooper MD Assoc. diagnoses: Seronegative rheumatoid arthritis (HCC) AST/SGOT BLD [SQAST] 3/4 Every 3 months 11/18/24 11/19/23 12/21/23 Auth. provider: Ginny Cooper MD Assoc. diagnoses: Seronegative rheumatoid arthritis (HCC) BUN BLOOD [SQBUN] 3/4 Every 3 months 11/18/24 11/19/23 12/21/23 Auth. provider: Ginny Cooper MD Assoc. diagnoses: Seronegative rheumatoid arthritis (HCC) CBC + DIFF [SQCBCDIF] 3/4 Every 3 months 11/18/24 11/19/23 12/21/23 Auth. provider: Ginny Cooper MD Assoc. diagnoses: Seronegative rheumatoid arthritis (HCC) C-REACTIVE PROTEIN (CRP) [SQCRP] 3/4 Every 3 months 11/18/24 11/19/23 12/21/23 Auth. provider: Ginny Cooper MD Assoc. diagnoses: Seronegative rheumatoid arthritis (HCC) CREATININE BLD [SQCRET] 3/4 Every 3 months 11/18/24 11/19/23 12/21/23 Auth. provider: Ginny Cooper MD Assoc. diagnoses: Seronegative rheumatoid arthritis (HCC) SED RATE WESTERGREN [SQWSR] 3/4 Every 3 months 11/18/24 11/19/23 12/21/23 Auth. provider: Ginny Cooper MD Assoc. diagnoses: Seronegative rheumatoid arthritis (HCC) Open Future (Single Instance) Lab Orders None Carolann Pagan RN documented in this encounter [facility] 12-18-2023 Miscellaneous Notes The patient received a copy of Colonoscopy discharge instructions that contain information for how to contact the physician who performed the procedure and when to seek medical care. documented in this encounter [facility] 12-18-2023 Nurse Note Abdomen soft non-distended. Will continue to monitor. documented in this encounter [facility] 12-18-2023 History and physical note UPDATED PROCEDURAL SEDATION HISTORY AND PHYSICAL EXAMINATION SERVICE DATE: 12/18/2023 SERVICE TIME: 10:09 PHYSICAL EXAM MUST BE COMPLETED ON ADMISSION PROCEDURE: colonoscopy, possible biopsies Procedure Indications: screeing for colon cance, family history of colon cancer The History and Physical (completed in the past 30 days) has been reviewed and the patient has been examined. The contents accurately reflect the patient's condition with the following additions or revisions since the H&P was completed. ASA Class: ASA Class:: Patient with mild systemic disease Examination indicates no changes. AIRWAY: Airway Visualization of Uvula: Yes Mouth opening greater than 2 fingerbreadths: Yes Neck Full Range of Motion: Yes LUNGS: Lungs clear to auscultation CARDIAC: Regular rhythm,Regular rate Provisional Diagnosis/Treatment Plan: colonoscoyp, possible biopsies SEDATION GOAL: Moderate This H&P can be found in the Electronic Medical Record . SIGNATURE: Lexi Mcintosh MD PATIENT NAME: Nikki Toro DATE: December 18, 2023 TIME: 10:12 AM Source Note - Lexi Mcintosh MD - 12/18/2023 10:30 AM EDT HISTORY AND PHYSICAL Nikki Toro 1955 REFERRING PHYSICIAN: No ref. provider found CHIEF COMPLAINT: Consult (colonoscopy) HPI: The patient is a 67 year old female referred for endoscopy. Nikki notes no colon complaints. Patient denies any change in bowel habits, weight changes, blood in stools, black tarry stools or abdominal pain. NOTES family history of colon cancer-brother diagnosed at 41. The patient notes no upper GI complaints. Nikki has undergone prior colonoscopy, per patient greater than 10 years ago. 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 Notes also prothrombin gene mutation, past history seizure-denies any recently. Patient follows with Dr. Philip in primary care for her chronic medical conditions, faxed office notes reviewed. Denies problems with sedation in the past. 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 Unspecified hypothyroidism PAST SURGICAL HISTORY PAST SURGICAL HISTORY Procedure Laterality Date APPENDECTOMY ARTERIAL EMBOLIZATION (AG) DILATION & CURETTAGE DX&/THER NONOBSTETRIC Dilation & curettage MIDLINE INSERTION/CONSULT 02/12/2018 PAST SURGICAL HISTORY OF 08/1999 bladder repair posterior repair with EVI RECTAL REPAIR W OR W/O MESH REMV CATARACT EXTRACAP,INSERT LENS TOTAL ABDOMINAL HYSTERECT W/WO RMVL TUBE OVARY 08/1999 Hysterectomy, EVI CURRENT MEDICATIONS Current Outpatient Medications Medication Sig triamcinolone acetonide (KENALOG) 0.5 % cream APPLY CREAM TOPICALLY TO AFFECTED AREA ONCE DAILY hydrOXYchloroQUINE (PLAQUENIL) 200 mg tablet Take 1 tablet by mouth twice daily. levothyroxine (SYNTHROID) 112 mcg tablet Take 112 mcg by mouth once daily. iv contrast (will be provided with radiology test) MRA Brain Inject, intravenously, once for 1 dose. No IV access, insert saline lock prior to the beginning of sedation, infusion, injection of imaging exam. Discontinue saline lock post exam. If Pt. has a central line or IVAD, may access for administration according to line specific nursing protocol. Once exam is complete flush line and de-access according to line specific nursing protocol in the MR contrast administration guidelines link. iv contrast (will be provided with radiology test) MRI Brain Inject, intravenously, once for 1 dose.No IV access, insert saline lock prior to beginning of sedation, infusion, injection of imaging exam.Discontinue saline lock post exam. If Pt. has a central line or IVAD, may access for administration according to line specific nursing protocol.Once exam is complete flush line and de-access according to line specific nursing protocol in the MR contrast administration guidelines link aspirin 81 mg chewable tablet Take 1 tablet by mouth once daily. MIRALAX POWDER 17 gm po qd with 4 oz of liquid No current facility-administered medications for this visit. ALLERGIES: Seasonal [Other] PERSONAL HISTORY: SOCIAL HISTORY Social History Tobacco Use Smoking status: Never Smokeless tobacco: Never Vaping Use Vaping Use: Never used Substance Use Topics Alcohol use: Not Currently Drug use: Not Currently FAMILY HISTORY: FAMILY HISTORY FAMILY HISTORY Problem Relation Age of Onset Colon Cancer Brother Ischemic Heart Disease Brother REVIEW OF SYSTEMS: General: The patient denies fatigue, denies weight loss, denies weight gain, denies feeling hot, and denies feelings of cold. Eyes: The patient denies glaucoma, NOTES eye injury/surgery, wears glasses or contacts. Ear/Nose/Throat: The patient NOTES allergies, denies hayfever, denies ear infections, and denies bloody noses. Cardiovascular: The patient denies chest pain, denies heart disease, denies high blood pressure,denies cardiac stent, denies prior heart attack, denies irregular heart beat, denies high cholesterol, denies poor circulation, denies heart failure, other cardiac issues, denies claudication, denies cold feet, denies peripheral arterial stent. Respiratory: The patient denies tuberculosis, denies pneumonia, denies frequent cough, denies pulmonary embolism, denies shortness of breath, and denies coughing up blood. Gastrointestinal: The patient denies difficulty swallowing, denies acid reflux, denies ulcers, denies vomiting, denies jaundice/hepatitis, denies gallbladder problems, denies black or tarry stools, denies hemorrhoids, denies bleeding from rectum, denies diverticulitis, denies constipation, denies diarrhea, denies loss of stool control, and denies hernias. Kidney/Bladder: The patient denies kidney stones, denies urine infections, and denies bloody urine. Skin: The patient denies a history of skin cancer, denies bleeding/changing moles, and denies a history of skin rash. Neurologic: The patient denies a history of epilepsy/convulsions, denies headaches, denies head/spinal injuries, and denies stroke/TIA. Psychiatric: The patient denies psychiatric medications, denies depression, and denies voices, denies substance abuse. Endocrine: The patient NOTES thyroid disorders, denies diabetes, and denies hormonal problems. Hematologic: The patient denies a history of bruising, denies bleeding, and denies anemia, denies blood clots. Infections: The patient denies a history of measles and mumps, denies rheumatic fever, and denies sexually transmitted diseases. Musculoskeletal: The patient denies back pain/injury, denies back problems, denies sciatica, denies knee/foot trouble, denies arthritis, or denies gout. When was patient's last Mammogram screening? 2022 Last Colonoscopy: 10 + years Naa Gregory RN I have confirmed and edited as necessary, the PFSH and ROS obtained by others. Karmen Schwartz PA-C PHYSICAL EXAMINATION: General: The patient is 67 year old female, well nourished, well hydrated in no acute distress. The patient is oriented to time, place, and person. VITALS: Blood pressure 102/68, pulse 82, temperature 36.2 C (97.2 F), height 167.6 cm (5' 6), weight 73.9 kg (163 lb), SpO2 98 %. There is no height or weight on file to calculate BMI. HEENT: Normal cephalic, ataumatic, pupils are equally round, sclera are anicteric, mucous membranes are moist, oropharynx is clear. Neck has no masses, asymmetry or lymphadenopathy. Respiratory: Clear to auscultation and percussion. Normal respiratory excursion and pattern. Cardiac: Examination is regular rate and rhythm. Normal S1/S2 Abdominal exam: Soft, nontender, with no palpable masses. No hepatosplenomegaly. No palpable hernias. Extremities: no clubbing, cyanosis or edema. No adenopathy. LABORATORY VALUES: As Noted RADIOLOGIC STUDIES: As Noted IMPRESSION: encounter for high-risk screening colonoscopy, family history of colon cancer PLAN: I have discussed the above with the patient. I have offered colonoscopy , possible biopsies I have explained the procedure to the patient. I have counseled the patient as to the risks of the procedure, including but not limited to: infection, bleeding, injury to any intrabdominal organs such as liver/spleen, perforation of the GI tract, inability to complete the procedure, complications of anesthesia, etc. - the patient understands. The patient wishes to proceed. I have answered all questions to the patient s satisfaction and the patient has no further questions. HISTORY AND PHYSICAL Nikki Hendrix Cortez 1955 REFERRING PHYSICIAN: No ref. provider found CHIEF COMPLAINT: Consult (colonoscopy) HPI: The patient is a 67 year old female referred for endoscopy. Nikki notes no colon complaints. Patient denies any change in bowel habits, weight changes, blood in stools, black tarry stools or abdominal pain. NOTES family history of colon cancer-brother diagnosed at 41. The patient notes no upper GI complaints. Nikki has undergone prior colonoscopy, per patient greater than 10 years ago. 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 Notes also prothrombin gene mutation, past history seizure-denies any recently. Patient follows with Dr. Philip in primary care for her chronic medical conditions, faxed office notes reviewed. Denies problems with sedation in the past. 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 Unspecified hypothyroidism PAST SURGICAL HISTORY PAST SURGICAL HISTORY Procedure Laterality Date APPENDECTOMY ARTERIAL EMBOLIZATION (AG) DILATION & CURETTAGE DX&/THER NONOBSTETRIC Dilation & curettage MIDLINE INSERTION/CONSULT 02/12/2018 PAST SURGICAL HISTORY OF 08/1999 bladder repair posterior repair with EVI RECTAL REPAIR W OR W/O MESH REMV CATARACT EXTRACAP,INSERT LENS TOTAL ABDOMINAL HYSTERECT W/WO RMVL TUBE OVARY 08/1999 Hysterectomy, EVI CURRENT MEDICATIONS Current Outpatient Medications Medication Sig triamcinolone acetonide (KENALOG) 0.5 % cream APPLY CREAM TOPICALLY TO AFFECTED AREA ONCE DAILY hydrOXYchloroQUINE (PLAQUENIL) 200 mg tablet Take 1 tablet by mouth twice daily. levothyroxine (SYNTHROID) 112 mcg tablet Take 112 mcg by mouth once daily. iv contrast (will be provided with radiology test) MRA Brain Inject, intravenously, once for 1 dose. No IV access, insert saline lock prior to the beginning of sedation, infusion, injection of imaging exam. Discontinue saline lock post exam. If Pt. has a central line or IVAD, may access for administration according to line specific nursing protocol. Once exam is complete flush line and de-access according to line specific nursing protocol in the MR contrast administration guidelines link. iv contrast (will be provided with radiology test) MRI Brain Inject, intravenously, once for 1 dose.No IV access, insert saline lock prior to beginning of sedation, infusion, injection of imaging exam.Discontinue saline lock post exam. If Pt. has a central line or IVAD, may access for administration according to line specific nursing protocol.Once exam is complete flush line and de-access according to line specific nursing protocol in the MR contrast administration guidelines link aspirin 81 mg chewable tablet Take 1 tablet by mouth once daily. MIRALAX POWDER 17 gm po qd with 4 oz of liquid No current facility-administered medications for this visit. ALLERGIES: Seasonal [Other] PERSONAL HISTORY: SOCIAL HISTORY Social History Tobacco Use Smoking status: Never Smokeless tobacco: Never Vaping Use Vaping Use: Never used Substance Use Topics Alcohol use: Not Currently Drug use: Not Currently FAMILY HISTORY: FAMILY HISTORY FAMILY HISTORY Problem Relation Age of Onset Colon Cancer Brother Ischemic Heart Disease Brother REVIEW OF SYSTEMS: General: The patient denies fatigue, denies weight loss, denies weight gain, denies feeling hot, and denies feelings of cold. Eyes: The patient denies glaucoma, NOTES eye injury/surgery, wears glasses or contacts. Ear/Nose/Throat: The patient NOTES allergies, denies hayfever, denies ear infections, and denies bloody noses. Cardiovascular: The patient denies chest pain, denies heart disease, denies high blood pressure,denies cardiac stent, denies prior heart attack, denies irregular heart beat, denies high cholesterol, denies poor circulation, denies heart failure, other cardiac issues, denies claudication, denies cold feet, denies peripheral arterial stent. Respiratory: The patient denies tuberculosis, denies pneumonia, denies frequent cough, denies pulmonary embolism, denies shortness of breath, and denies coughing up blood. Gastrointestinal: The patient denies difficulty swallowing, denies acid reflux, denies ulcers, denies vomiting, denies jaundice/hepatitis, denies gallbladder problems, denies black or tarry stools, denies hemorrhoids, denies bleeding from rectum, denies diverticulitis, denies constipation, denies diarrhea, denies loss of stool control, and denies hernias. Kidney/Bladder: The patient denies kidney stones, denies urine infections, and denies bloody urine. Skin: The patient denies a history of skin cancer, denies bleeding/changing moles, and denies a history of skin rash. Neurologic: The patient denies a history of epilepsy/convulsions, denies headaches, denies head/spinal injuries, and denies stroke/TIA. Psychiatric: The patient denies psychiatric medications, denies depression, and denies voices, denies substance abuse. Endocrine: The patient NOTES thyroid disorders, denies diabetes, and denies hormonal problems. Hematologic: The patient denies a history of bruising, denies bleeding, and denies anemia, denies blood clots. Infections: The patient denies a history of measles and mumps, denies rheumatic fever, and denies sexually transmitted diseases. Musculoskeletal: The patient denies back pain/injury, denies back problems, denies sciatica, denies knee/foot trouble, denies arthritis, or denies gout. When was patient's last Mammogram screening? 2022 Last Colonoscopy: 10 + years Naa Gregory RN I have confirmed and edited as necessary, the PFSH and ROS obtained by others. Karmen Schwartz PA-C PHYSICAL EXAMINATION: General: The patient is 67 year old female, well nourished, well hydrated in no acute distress. The patient is oriented to time, place, and person. VITALS: Blood pressure 102/68, pulse 82, temperature 36.2 C (97.2 F), height 167.6 cm (5' 6), weight 73.9 kg (163 lb), SpO2 98 %. There is no height or weight on file to calculate BMI. HEENT: Normal cephalic, ataumatic, pupils are equally round, sclera are anicteric, mucous membranes are moist, oropharynx is clear. Neck has no masses, asymmetry or lymphadenopathy. Respiratory: Clear to auscultation and percussion. Normal respiratory excursion and pattern. Cardiac: Examination is regular rate and rhythm. Normal S1/S2 Abdominal exam: Soft, nontender, with no palpable masses. No hepatosplenomegaly. No palpable hernias. Extremities: no clubbing, cyanosis or edema. No adenopathy. LABORATORY VALUES: As Noted RADIOLOGIC STUDIES: As Noted IMPRESSION: encounter for high-risk screening colonoscopy, family history of colon cancer PLAN: I have discussed the above with the patient. I have offered colonoscopy , possible biopsies I have explained the procedure to the patient. I have counseled the patient as to the risks of the procedure, including but not limited to: infection, bleeding, injury to any intrabdominal organs such as liver/spleen, perforation of the GI tract, inability to complete the procedure, complications of anesthesia, etc. - the patient understands. The patient wishes to proceed. I have answered all questions to the patient s satisfaction and the patient has no further questions. documented in this encounter [facility] 11-19-2023 Miscellaneous Notes Called patient, left a voicemail for her to give us a call back to schedule an appointment, as there was nothing scheduled. Can you please contact this patient about next appointment? I do not see anything scheduled. Patient states there was an appointment supposed to be set up for January [address] Cooper documented in this encounter [facility] 11-19-2023 Miscellaneous Notes She is asking if she needs labs prior to next appointment, however, I do not see any appointment scheduled with you. Please advise, thanks. documented in this encounter [facility] 06-30-2023 Instructions Ginny Cooper MD - 06/30/2023 10:16 AM EDT Follow up January 03 at 10 documented in this encounter [facility] 06-30-2023 History of Present illness Narrative MD Nikki Box June 29, 2023 Referring Provider:Ginny Cooper PCP: Alyssa Philip MD Chief Complaint: Patient presents with: Established Patient Background Rheumatologic History: She has been dealing with chronic mild joint pain for years. However, over the past 4 months, the pain becomes much more intense. The pain is mainly located in her joints, including this, MCPs, PIPs, elbows, shoulders, knees and ankles. She describes morning pain although this does not happen every day. Also describes morning stiffness that can last for many hours. She does describe gelling phenomena and states that physical inactivity can aggravate the pain (even though too much physical activities can aggravate the pain as well). She has a long history of skin eczema but no history of psoriasis. She has been seen by her local doctor who prescribes meloxicam. Meloxicam helps with her pain significantly. Review of systems is positive for hair loss, sicca and intermittent dysphagia. The patient denies RP, oral ulcer, malar, pleurisy, diarrhea, photosensitivity, uveitis. The patient denies family history of RA, SLE, , psoriasis, IBD, uveitis, other autoimmune diseases. Labs from outside hospital RF + CCP neg CRP 6 ESR normal SUZIE + XR osteoarthritic changes The diagnosis of seropositive rheumatoid arthritis is made based on the presence of true inflammatory arthritis (examination plus elevated CRP) in symmetric pattern plus positive rheumatoid factor. I think that she also has baseline osteoarthritis based on the changes observed on x-rays. I started HCQ. Since she was doing well with meloxicam, I did not think that she would need low-dose steroid as a bridging therapy. I continued meloxicam daily. F/U 11/13/20 She misunderstood me and is taking Plaquenil only 200 mg daily. However, she is doing significantly better. Pain and swelling are gone. I continued Plaquenil 200 mg daily. F/U 04/01/21 Some residual inflammation on my examination. I increased Plaquenil to the standard dose of 400 mg/day. F/U 06/24/21 In remission. I continued Plaquenil 400 mg daily. F/U 12/23/21 In remission. I continued Plaquenil 400 mg daily. F/U 07/01/22 In remission. I continued Plaquenil 400 mg daily. F/U 12/29/22 In remission. I continued Plaquenil 400 mg daily. Interim History: Patient returns for follow up, last visit 12/29/2022. She has been dealing with more foot pain since her last visit with me. It is not too bad. She describes some stiffness as well. Pain score of around 2/10. Also chronic intermittent pain in the base of her thumbs. She does not need to take pain medication. PAST MEDICAL HISTORY Diagnosis Date Allergic rhinitis, cause unspecified Atopic eczema Congenital arteriovenous fistula of brain Hypothyroidism Prothrombin gene mutation (HCC) Rheumatoid arthritis (HCC) Seizure (HCC) Sudden idiopathic hearing loss of right ear Unspecified hypothyroidism PAST SURGICAL HISTORY Procedure Laterality Date APPENDECTOMY ARTERIAL EMBOLIZATION (AG) DILATION & CURETTAGE DX&/THER NONOBSTETRIC Dilation & curettage MIDLINE INSERTION/CONSULT 02/12/2018 PAST SURGICAL HISTORY OF 08/1999 bladder repair posterior repair with EVI RECTAL REPAIR W OR W/O MESH REMV CATARACT EXTRACAP,INSERT LENS TOTAL ABDOMINAL HYSTERECT W/WO RMVL TUBE OVARY 08/1999 Hysterectomy, EVI Social History Tobacco Use Smoking status: Never Smokeless tobacco: Never Vaping Use Vaping Use: Never used Substance Use Topics Alcohol use: Not Currently Drug use: Not Currently Health Maintenance Annual PCP Team Chronic Disease Visit Never done Hepatitis C Screening Never done DTaP,Tdap,Td Vaccine(1 - Tdap) Never done Mammogram Screening Never done Lipid Screening Never done Colorectal Cancer Screening Never done RSV Vaccine(1 - 1-dose 60+ series) Never done Bone Density Screening Never done Diabetes Screening due on 02/17/2021 Advance Directive Discussion Never done Depression Assessment Never done Influenza Vaccine(1) due on 05/15/2023 Covid-19 Vaccine(2022- season) due on 05/15/2023 Immunization History Administered Date(s) Administered COVID-19 original vaccine, full dose, monovalent (MODERNA) 09/24/2020 10/23/2020 09/11/2021 COVID-19 vaccine, age 12+ yr, bivalent ([employer] 06/18/2022 Current Outpatient Medications Medication Sig Dispense Refill triamcinolone acetonide (KENALOG) 0.5 % cream APPLY CREAM TOPICALLY TO AFFECTED AREA ONCE DAILY hydrOXYchloroQUINE (PLAQUENIL) 200 mg tablet Take 1 tablet by mouth twice daily. 180 tablet 3 levothyroxine (SYNTHROID) 112 mcg tablet Take 112 mcg by mouth once daily. iv contrast (will be provided with radiology test) MRA Brain Inject, intravenously, once for 1 dose. No IV access, insert saline lock prior to the beginning of sedation, infusion, injection of imaging exam. Discontinue saline lock post exam. If Pt. has a central line or IVAD, may access for administration according to line specific nursing protocol. Once exam is complete flush line and de-access according to line specific nursing protocol in the MR contrast administration guidelines link. 1 Each 0 iv contrast (will be provided with radiology test) MRI Brain Inject, intravenously, once for 1 dose.No IV access, insert saline lock prior to beginning of sedation, infusion, injection of imaging exam.Discontinue saline lock post exam. If Pt. has a central line or IVAD, may access for administration according to line specific nursing protocol.Once exam is complete flush line and de-access according to line specific nursing protocol in the MR contrast administration guidelines link 1 Each 0 aspirin 81 mg chewable tablet Take 1 tablet by mouth once daily. 30 tablet 2 MIRALAX POWDER 17 gm po qd with 4 oz of liquid 1 bottle 3 No current facility-administered medications for this visit. ALLERGIES Allergen Reactions Seasonal [Other] allergies Physical Exam: BP 102/70 Temp (Src) 96.9 (Left Tympanic) Wt 158 lb (71.7kg) General: Not pale, no jaundice, not in acute distress Head: Normocephalic, atraumatic Eyes: No redeye, no discharge ENT: No oral/nasal ulcer Neck: No lymphadenopathy Lungs: Normal breath sound, no adventitious sound Abdomen: Soft, not tender CV: Normal S1 S2, no murmur, no rub, pulse regular Skin: No rash, no malar rash, no telangiectasia, no pitting nail/onycholysis, no gross periungual telangiectasia Neuro: Grossly intact, motor power 5 all Joints LEFT Shoulder Full ROM, not tender Elbow Full ROM, not tender, not swollen Wrist Full ROM, not tender, not swollen 2nd MCP Not tender, not swollen 3rd MCP Not tender, not swollen 4th MCP Not tender, not swollen 5th MCP Not tender, not swollen 1st IP Not tender, not swollen 2nd PIP Not tender, not swollen 3rd PIP Not tender, not swollen 4th PIP Not tender, not swollen 5th PIP Not tender, not swollen 2nd DIP Not tender, not swollen 3rd DIP Not tender, not swollen 4th DIP Not tender, not swollen 5th DIP Not tender, not swollen Hip Full ROM Knee Full ROM, not tender, no effusion Ankle mild tender, not swollen Squeezing test positive RIGHT Shoulder Full ROM, not tender Elbow Full ROM, not tender, not swollen Wrist Full ROM, not tender, not swollen 2nd MCP Not tender, not swollen 3rd MCP Not tender, not swollen 4th MCP Not tender, not swollen 5th MCP Not tender, not swollen 1st IP Not tender, not swollen 2nd PIP mild tender, not swollen 3rd PIP mild tender, not swollen 4th PIP Not tender, not swollen 5th PIP Not tender, not swollen 2nd DIP Not tender, not swollen 3rd DIP Not tender, not swollen 4th DIP Not tender, not swollen 5th DIP Not tender, not swollen Hip Full ROM Knee Full ROM, not tender, no effusion Ankle mild tender, not swollen Squeezing test positive Impression: 1. Seropositive rheumatoid arthritis 2. High risk medication use She describes more foot pain. I am still quite uncertain if this is caused by active RA or OA. We will repeat all of investigation as well as x-ray scan today. She also complains of cough. I will obtain CXR too. Recommendations/Plan Plan discussed with patient Return Visit: Follow up January 03 at 10 I spent a total of 40 minutes on the date of the service which included preparing to see the patient, [id number] patient care, completing clinical documentation, obtaining and/or reviewing separately obtained history, performing a medically appropriate examination, counseling and educating the patient/family/caregiver, and ordering medications, tests, or procedures. Ginny Cooper MD Referring Provider:Ginny Cooper PCP: Alyssa Philip MD Answers submitted by the patient for this visit: Review of Systems Rheumatology (Submitted on 06/29/2023) Fever : No Recent unintentional weight change: No Eye pain: No Eye redness: No Vision Disturbance: No Eye Dryness: No Nosebleeds: No Sores in your mouth: No Trouble Swallowing: No Dry Mouth: No Chest pain: No Leg Swelling: No A cough: Yes Blood when you cough: No Shortness of breath: No Pain with breathing: No Heartburn: No Abdominal pain: No Diarrhea: No Black tarry stools: No Blood in urine: No Pain or burning with urination: No Joint pain or stiffness: Yes Muscle weakness: Yes Muscle aches: Yes Joint swelling: No Morning Stiffness in Joints: Yes A rash: No Skin Color Changes: Yes Hair Loss: No Nail Changes: No Headaches: No Numbness: No Memory Loss: No Swollen Glands: No documented in this encounter [facility] 12-29-2022 Instructions Ginny Cooper MD - 12/29/2022 10:43 AM EDT Jun 30 10 in person documented in this encounter [facility] 12-29-2022 History of Present illness Narrative MD Nikki Box December 29, 2022 Referring Provider: PCP: Alyssa Philip MD Chief Complaint: Patient presents with: Established Patient Background Rheumatologic History: She has been dealing with chronic mild joint pain for years. However, over the past 4 months, the pain becomes much more intense. The pain is mainly located in her joints, including this, MCPs, PIPs, elbows, shoulders, knees and ankles. She describes morning pain although this does not happen every day. Also describes morning stiffness that can last for many hours. She does describe gelling phenomena and states that physical inactivity can aggravate the pain (even though too much physical activities can aggravate the pain as well). She has a long history of skin eczema but no history of psoriasis. She has been seen by her local doctor who prescribes meloxicam. Meloxicam helps with her pain significantly. Review of systems is positive for hair loss, sicca and intermittent dysphagia. The patient denies RP, oral ulcer, malar, pleurisy, diarrhea, photosensitivity, uveitis. The patient denies family history of RA, SLE, , psoriasis, IBD, uveitis, other autoimmune diseases. Labs from outside hospital RF + CCP neg CRP 6 ESR normal SUZIE + XR osteoarthritic changes The diagnosis of seropositive rheumatoid arthritis is made based on the presence of true inflammatory arthritis (examination plus elevated CRP) in symmetric pattern plus positive rheumatoid factor. I think that she also has baseline osteoarthritis based on the changes observed on x-rays. I started HCQ. Since she was doing well with meloxicam, I did not think that she would need low-dose steroid as a bridging therapy. I continued meloxicam daily. F/U 11/13/20 She misunderstood me and is taking Plaquenil only 200 mg daily. However, she is doing significantly better. Pain and swelling are gone. I continued Plaquenil 200 mg daily. F/U 04/01/21 Some residual inflammation on my examination. I increased Plaquenil to the standard dose of 400 mg/day. F/U 06/24/21 In remission. I continued Plaquenil 400 mg daily. F/U 12/23/21 In remission. I continued Plaquenil 400 mg daily. F/U 07/01/22 In remission. I continued Plaquenil 400 mg daily. Interim History: Patient returns for follow up, last visit 12/23/2021. She continues to do well with no flare. She only describes some achiness/stiffness in the morning but it is very minor. No side effect from Plaquenil. Last eye examination was earlier this month and it was normal. PAST MEDICAL HISTORY Diagnosis Date Allergic rhinitis, cause unspecified Unspecified hypothyroidism PAST SURGICAL HISTORY Procedure Laterality Date APPENDECTOMY DILATION & CURETTAGE DX&/THER NONOBSTETRIC Dilation & curettage MIDLINE INSERTION/CONSULT 02/12/2018 PAST SURGICAL HISTORY OF bladder repair posterior repair with EVI TOTAL ABDOMINAL HYSTERECT W/WO RMVL TUBE OVARY Hysterectomy, EVI Social History Tobacco Use Smoking status: Never Smokeless tobacco: Never Health Maintenance ANNUAL PCP TEAM CHRONIC DISEASE VISIT Never done HEPATITIS C SCREENING Never done DTAP,TDAP,TD(1 - Tdap) Never done MAMMOGRAM Never done LIPID SCREEN Never done COLORECTAL CANCER SCREENING Never done SHINGRIX VACCINE(1 of 2) Never done BONE DENSITY Never done PNEUMOCOCCAL: 65+(1 - PCV) Never done DIABETES SCREEN due on 02/17/2021 ADVANCE DIRECTIVE DISCUSSION Never done DEPRESSION ASSESSMENT Never done Immunization History Administered Date(s) Administered COVID-19 booster vaccine, age 12+ yr, bivalent ([employer]) 06/18/2022 COVID-19 original vaccine, full dose, monovalent (MODERNA) 09/24/2020 10/23/2020 09/11/2021 Current Outpatient Medications Medication Sig Dispense Refill hydrOXYchloroQUINE (PLAQUENIL) 200 mg tablet Take 1 tablet by mouth twice daily. 180 tablet 3 levothyroxine (SYNTHROID) 112 mcg tablet Take 112 mcg by mouth once daily. iv contrast (will be provided with radiology test) MRA Brain Inject, intravenously, once for 1 dose. No IV access, insert saline lock prior to the beginning of sedation, infusion, injection of imaging exam. Discontinue saline lock post exam. If Pt. has a central line or IVAD, may access for administration according to line specific nursing protocol. Once exam is complete flush line and de-access according to line specific nursing protocol in the MR contrast administration guidelines link. 1 Each 0 iv contrast (will be provided with radiology test) MRI Brain Inject, intravenously, once for 1 dose.No IV access, insert saline lock prior to beginning of sedation, infusion, injection of imaging exam.Discontinue saline lock post exam. If Pt. has a central line or IVAD, may access for administration according to line specific nursing protocol.Once exam is complete flush line and de-access according to line specific nursing protocol in the MR contrast administration guidelines link 1 Each 0 aspirin 81 mg chewable tablet Take 1 tablet by mouth once daily. 30 tablet 2 MIRALAX POWDER 17 gm po qd with 4 oz of liquid 1 bottle 3 No current facility-administered medications for this visit. ALLERGIES Allergen Reactions Seasonal [Other] allergies Physical Exam: BP 122/86 Pulse 64 Temp (Src) 97.5 (Left Tympanic) Wt 155 lb (70.3kg) General: Not pale, no jaundice, not in acute distress Head: Normocephalic, atraumatic Eyes: No redeye, no discharge ENT: No oral/nasal ulcer Neck: No lymphadenopathy Lungs: Normal breath sound, no adventitious sound Abdomen: Soft, not tender CV: Normal S1 S2, no murmur, no rub, pulse regular Skin: No rash, no malar rash, no telangiectasia, no pitting nail/onycholysis, no gross periungual telangiectasia Neuro: Grossly intact, motor power 5 all Joints LEFT Shoulder Full ROM, not tender Elbow Full ROM, not tender, not swollen Wrist Full ROM, not tender, not swollen 2nd MCP Not tender, not swollen 3rd MCP Not tender, not swollen 4th MCP Not tender, not swollen 5th MCP Not tender, not swollen 1st IP Not tender, not swollen 2nd PIP Not tender, not swollen 3rd PIP Not tender, not swollen 4th PIP Not tender, not swollen 5th PIP Not tender, not swollen 2nd DIP Not tender, not swollen 3rd DIP Not tender, not swollen 4th DIP Not tender, not swollen 5th DIP Not tender, not swollen Hip Full ROM Knee Full ROM, not tender, no effusion Ankle Not tender, not swollen Squeezing test Negative RIGHT Shoulder Full ROM, not tender Elbow Full ROM, not tender, not swollen Wrist Full ROM, not tender, not swollen 2nd MCP Not tender, not swollen 3rd MCP Not tender, not swollen 4th MCP Not tender, not swollen 5th MCP Not tender, not swollen 1st IP Not tender, not swollen 2nd PIP Not tender, not swollen 3rd PIP Not tender, not swollen 4th PIP Not tender, not swollen 5th PIP Not tender, not swollen 2nd DIP Not tender, not swollen 3rd DIP Not tender, not swollen 4th DIP Not tender, not swollen 5th DIP Not tender, not swollen Hip Full ROM Knee Full ROM, not tender, no effusion Ankle Not tender, not swollen Squeezing test Negative Impression: 1. Seropositive rheumatoid arthritis 2. High risk medication use She remains in remission. I will continue treatment with hydroxychloroquine monotherapy at 400 mg. She is going to get eye examination done every year. Recommendations/Plan Plan discussed with patient Return Visit: In person follow-up June 30 at 10 AM. I spent a total of 30 minutes on the date of the service which included preparing to see the patient, [id number] patient care, completing clinical documentation, obtaining and/or reviewing separately obtained history, performing a medically appropriate examination, counseling and educating the patient/family/caregiver, and ordering medications, tests, or procedures. Ginny Cooper MD Referring Provider: PCP: Alyssa Philip MD Answers submitted by the patient for this visit: Review of Systems Rheumatology (Submitted on 12/28/2022) Fever : No Recent Unintentional Weight Change: No Eye Pain: No Eye Redness: No Vision Disturbance: No Eye Dryness: No Nose Bleeds: No Sores in your Mouth: No Trouble Swallowing: No Dry Mouth: No Chest Pain: No Leg Swelling: No A Cough: No Shortness of Breath: No Pain with Breathing: No Heartburn: No Abdominal Pain: No Diarrhea: No Black Tarry Stools: No Blood in Urine: No Pain or Burning with Urination: No Joint Pain or Stiffness: Yes Muscle Weakness: Yes Muscle Aches: Yes Joint Swelling: Yes Morning Stiffness in Joints: Yes A Rash: Yes Do you have sun sensitive rashes?: No Skin Color Changes: No Hair Loss: No Nail Changes: No Headaches: No Numbness: No Memory Loss: No Swollen Glands: No documented in this encounter [facility] 11-26-2022 History of Present illness Narrative Radiology Service Progress Note DATE OF SERVICE: November 26, 2022 TIME: 10:39 AM PATIENT IDENTITY VERIFICATION COMPLETED USING TWO (2) STANDARD IDENTIFIERS: Name and Date of confirmed by patient verbally. FALL SCREENING: Has the patient had 2 falls in the last year or 1 fall with injury or currently using an Ambulatory Assistive Device (Walker, Cane, Wheelchair, Crutches, etc.)? No PATIENT GENDER DATA: Female. status: : No status: NO. PATIENT RELEVANT IMPLANT DATA REVIEWED: Yes ALLERGIES: Reviewed and unchanged CONTRAST ALLERGY: NO. EXAM: MRI - CONTRAST TYPE: GROUP II PERIPHERAL IV DATA: Ambulatory: A peripheral IV was started in the Right WRIST with a Angio cath: 24 gauge. RADIOLOGY DEPARTMENT: MR; Exam(s) Completed: Head: Routine Brain SIGNATURE: RT Leigh(R) PATIENT NAME: Nikki Toro DATE: November 26, 2022 TIME: 10:39 AM documented in this encounter [facility] 07-01-2022 History of Present illness Narrative VIRTUAL VISIT PROGRESS NOTE This is a virtual visit using [employer] video visit. It required patient-provider interaction for the medical decision making as documented below. Ginny Cooper MD Nikki Toro July 01, 2022 Referring Provider:Ginny Cooper PCP: Alyssa Philip MD Chief Complaint: Patient presents with: Joint Pain Background Rheumatologic History: She has been dealing with chronic mild joint pain for years. However, over the past 4 months, the pain becomes much more intense. The pain is mainly located in her joints, including this, MCPs, PIPs, elbows, shoulders, knees and ankles. She describes morning pain although this does not happen every day. Also describes morning stiffness that can last for many hours. She does describe gelling phenomena and states that physical inactivity can aggravate the pain (even though too much physical activities can aggravate the pain as well). She has a long history of skin eczema but no history of psoriasis. She has been seen by her local doctor who prescribes meloxicam. Meloxicam helps with her pain significantly. Review of systems is positive for hair loss, sicca and intermittent dysphagia. The patient denies RP, oral ulcer, malar, pleurisy, diarrhea, photosensitivity, uveitis. The patient denies family history of RA, SLE, , psoriasis, IBD, uveitis, other autoimmune diseases. Labs from outside hospital RF + CCP neg CRP 6 ESR normal SUZIE + XR osteoarthritic changes The diagnosis of seropositive rheumatoid arthritis is made based on the presence of true inflammatory arthritis (examination plus elevated CRP) in symmetric pattern plus positive rheumatoid factor. I think that she also has baseline osteoarthritis based on the changes observed on x-rays. I started HCQ. Since she was doing well with meloxicam, I did not think that she would need low-dose steroid as a bridging therapy. I continued meloxicam daily. F/U 11/13/20 She misunderstood me and is taking Plaquenil only 200 mg daily. However, she is doing significantly better. Pain and swelling are gone. I continued Plaquenil 200 mg daily. F/U 04/01/21 Some residual inflammation on my examination. I increased Plaquenil to the standard dose of 400 mg/day. F/U 06/24/21 In remission. I continued Plaquenil 400 mg daily. F/U 12/23/21 In remission. I continued Plaquenil 400 mg daily. Interim History: Patient returns for follow up, last visit 12/23/2021. She continues to do well. No flare. She is taking Plaquenil faithfully. No side effect. Last eye examination was in February of this year. PAST MEDICAL HISTORY Diagnosis Date Allergic rhinitis, cause unspecified Unspecified hypothyroidism PAST SURGICAL HISTORY Procedure Laterality Date APPENDECTOMY DILATION & CURETTAGE DX&/THER NONOBSTETRIC Dilation & curettage MIDLINE INSERTION/CONSULT 02/12/2018 PAST SURGICAL HISTORY OF bladder repair posterior repair with EVI TOTAL ABDOMINAL HYSTERECT W/WO RMVL TUBE OVARY Hysterectomy, EVI Social History Tobacco Use Smoking status: Never Smokeless tobacco: Never Health Maintenance PNEUMOCOCCAL: 63+(1 - PCV) Never done ANNUAL PCP TEAM CHRONIC DISEASE VISIT Never done HEPATITIS C SCREENING Never done DTAP,TDAP,TD(1 - Tdap) Never done SHINGRIX VACCINE(1 of 2) Never done MAMMOGRAM Never done LIPID SCREEN Never done COLORECTAL CANCER SCREENING Never done BONE DENSITY Never done DIABETES SCREEN due on 02/17/2021 ADVANCE DIRECTIVE DISCUSSION Never done DEPRESSION ASSESSMENT Never done INFLUENZA(1) due on 05/15/2022 Immunization History Administered Date(s) Administered COVID-19 booster vaccine, age 12+ yr, bivalent ([employer]) 06/18/2022 COVID-19 original vaccine, full dose, monovalent (MODERNA) 09/24/2020 10/23/202009/11/2021 Current Outpatient Medications Medication Sig Dispense Refill hydrOXYchloroQUINE (PLAQUENIL) 200 mg tablet Take 1 tablet by mouth twice daily. 180 tablet 3 levothyroxine (SYNTHROID) 112 mcg tablet Take 112 mcg by mouth once daily. iv contrast (will be provided with radiology test) MRA Brain Inject, intravenously, once for 1 dose. No IV access, insert saline lock prior to the beginning of sedation, infusion, injection of imaging exam. Discontinue saline lock post exam. If Pt. has a central line or IVAD, may access for administration according to line specific nursing protocol. Once exam is complete flush line and de-access according to line specific nursing protocol in the MR contrast administration guidelines link. 1 Each 0 iv contrast (will be provided with radiology test) MRI Brain Inject, intravenously, once for 1 dose.No IV access, insert saline lock prior to beginning of sedation, infusion, injection of imaging exam.Discontinue saline lock post exam. If Pt. has a central line or IVAD, may access for administration according to line specific nursing protocol.Once exam is complete flush line and de-access according to line specific nursing protocol in the MR contrast administration guidelines link 1 Each 0 aspirin 81 mg chewable tablet Take 1 tablet by mouth once daily. 30 tablet 2 MIRALAX POWDER 17 gm po qd with 4 oz of liquid 1 bottle 3 No current facility-administered medications for this visit. ALLERGIES Allergen Reactions Seasonal [Other] allergies Physical Exam: There were no vitals taken for this visit. Impression: 1. Osteoarthritis 2. Seropositive rheumatoid arthritis 3. High risk medication use She continues to be in remission. I will continue Plaquenil monotherapy. She will continue to do eye examination every year. Recommendations/Plan Plan discussed with patient Return Visit: In person follow-up December 29 at 1030. I spent a total of 30 minutes on the date of the service which included preparing to see the patient, [id number] patient care, completing clinical documentation, obtaining and/or reviewing separately obtained history, performing a medically appropriate examination, counseling and educating the patient/family/caregiver, and ordering medications, tests, or procedures. Ginny Cooper MD Referring Provider:Ginny Cooper PCP: Alyssa Philip MD Answers submitted by the patient for this visit: Review of Systems Rheumatology (Submitted on 06/30/2022) Fever : Yes Recent Unintentional Weight Change: No Eye Pain: No Eye Redness: No Vision Disturbance: No Eye Dryness: No Nose Bleeds: No Sores in your Mouth: No Trouble Swallowing: No Dry Mouth: No Chest Pain: No Leg Swelling: No A Cough: No Shortness of Breath: No Pain with Breathing: No Heartburn: No Abdominal Pain: No Diarrhea: No Black Tarry Stools: No Blood in Urine: No Pain or Burning with Urination: No Joint Pain or Stiffness: Yes Muscle Weakness: Yes Muscle Aches: No Joint Swelling: No Morning Stiffness in Joints: Yes A Rash: No Skin Color Changes: No Hair Loss: No Nail Changes: No Headaches: No Numbness: No Memory Loss: No Swollen Glands: No documented in this encounter [facility] 11-05-2021 Note HNO ID: [id number] Author: RT Jesus(R) Service: Radiology Author Type: Technologist Type: Progress Notes Filed: 11/05/2021 3:25 PM Note Text: Radiology Service Progress Note DATE OF SERVICE: November 05, 2021 TIME: 3:25 PM PATIENT IDENTITY VERIFICATION COMPLETED USING TWO (2) STANDARD IDENTIFIERS: Name and Date of confirmed by patient verbally and Name and Date of confirmed by identification band. FALL SCREENING: Has the patient had 2 falls in the last year or 1 fall with injury or currently using an Ambulatory Assistive Device (Walker, Cane, Wheelchair, Crutches, etc.)? No PATIENT GENDER DATA: Female. status: : No status: NO. PATIENT RELEVANT IMPLANT DATA REVIEWED: Yes ALLERGIES: Reviewed and unchanged CONTRAST ALLERGY: NO. EXAM: MRI - CONTRAST TYPE: GROUP II PERIPHERAL IV DATA: Ambulatory: A peripheral IV was started in the Right antecubital site with a Angio cath/Butterfly: 22 gauge. RADIOLOGY DEPARTMENT: MR; Exam(s) Completed: Head: Routine Brain SIGNATURE: RT Mason(R) PATIENT NAME: Nikki Toro DATE: November 05, 2021 TIME: 3:25 PM [facility] 06-13-2021 Note HNO ID: [id number] Author: Donna Zavala CT Service: Radiology Author Type: Bakery Deliverer Type: Progress Notes Filed: 06/13/2021 3:31 PM Note Text: Radiology Service Progress Note DATE OF SERVICE: June 13, 2021 TIME: 3:30 PM PATIENT IDENTITY VERIFICATION COMPLETED USING TWO (2) STANDARD IDENTIFIERS: Name and Date of confirmed by patient verbally. FALL SCREENING: Has the patient had 2 falls in the last year or 1 fall with injury or currently using an Ambulatory Assistive Device (Walker, Cane, Wheelchair, Crutches, etc.)? No PATIENT GENDER DATA: Female. status: : No status: NO. PATIENT RELEVANT IMPLANT DATA REVIEWED: Yes ALLERGIES: Reviewed and unchanged CONTRAST ALLERGY: NO. EXAM: MRI - CONTRAST TYPE: GROUP II PERIPHERAL IV DATA: Ambulatory: A peripheral IV was started in the Right antecubital site with a Angio cath: 24 gauge. 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 aneurysm, nonruptured [facility] Seronegative rheumatoid arthritis (HCC)- Primary Rheumatoid arthritis High risk medication use Encounter for long-term (current) use of other medications [facility] Diagnosis Seronegative rheumatoid arthritis (HCC)- Primary Rheumatoid arthritis Cough, unspecified type High risk medication use Encounter for long-term (current) use of other medications [facility] Diagnosis 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 Cerebral aneurysm, nonruptured [facility] Diagnosis Seronegative rheumatoid arthritis (HCC)- Primary Rheumatoid arthritis [facility] Diagnosis Family history of colon cancer Family history of malignant neoplasm of gastrointestinal tract [facility] Diagnosis Seronegative rheumatoid arthritis (HCC) Rheumatoid arthritis [facility] Diagnosis Seronegative rheumatoid arthritis (HCC)- Primary Rheumatoid arthritis High risk medication use Encounter for long-term (current) use of other medications [facility] Diagnosis Seronegative rheumatoid arthritis (HCC)- Primary Rheumatoid arthritis High risk medication use Encounter for long-term (current) use of other medications documented in this encounter [facility] note* Diagnosis Seronegative rheumatoid arthritis (HCC)- Primary Rheumatoid arthritis High risk medication use Encounter for long-term (current) use of other medications Bilateral hip pain Pain in joint, pelvic region and thigh Chronic pain of both knees Seronegative rheumatoid arthritis (HCC) Rheumatoid arthritis [facility] Diagnosis Seronegative rheumatoid arthritis (HCC) Rheumatoid arthritis documented in this encounter [facility] note* Diagnosis Seronegative rheumatoid arthritis (HCC) Rheumatoid arthritis documented in this encounter [facility] note* Diagnosis Seronegative rheumatoid arthritis (HCC) Rheumatoid arthritis [facility] Diagnostic Procedure Only (Routine) - Pending Review Specialty Diagnoses / Procedures Referred By Contac t Referred To Contact XR IMAGING Diagnoses Seronegative rheumatoid arthritis (HCC) Cough, unspecified type Procedures XR FOOT GENERAL 3V AP/LAT/OBL BILATERAL RADEX FOOT COMPLETE MINIMUM 3 VIEWS Ginny Cooper MD [address] [place] [address] Xr Imaging [id number] Referral ID Status Reason Start Date Expiration Date Visits Requested Visits Authorized [id number] Pending Review Auto-Generat ed Referral 3 07/29/2024 1 1 * Diagnostic Procedure Only (Routine) - Pending Review Specialty Diagnoses / Procedures Referred By Contac t Referred To Contact XR IMAGING Diagnoses Seronegative rheumatoid arthritis (HCC) Cough, unspecified type Procedures XR HAND GENERAL 3V PA/LAT/OBL BILATERAL RADEX HAND MINIMUM 3 VIEWS Ginny Cooper MD [address] [place], [place] [id number] Xr Imaging [id number] Referral ID Status Reason Start Date Expiration Date Visits Requested Visits Authorized [id number] Pending Review Auto-Generat ed Referral 07/29/2024 1 1 T [facility] for referral (narrative)* Outpatient Procedure (Routine) - Denied Specialty Diagnoses / Procedures Referred By Contac t Referred To Contact [facility] Diagnoses Family history of colon cancer Procedures COLONOSCOPY SCREENING COLONOSCOPY FLX DX W/COLLJ SPEC WHEN PFKarmen Mcmanus PA-C [address] [place] [address] [facility] [address] [place] [address] Referral ID Status Reason Start Date Expiration Date V isits Requested Visits Authorized [id number] Denied Clearance Not Met - Admin/Chairm an/Director Advise to Postpone/Res chedule or Not Proceed 06/19/2023 03/24/2024 1 0 [facility] for visit Narrative* Outpatient Procedure (Routine) - Denied Specialty Diagnoses / Procedures Referred By Contac t Referred To Contact [facility] Diagnoses Family history of colon cancer Procedures COLONOSCOPY SCREENING COLONOSCOPY FLX DX W/COLLJ SPEC WHEN PFKarmen Mcmanus PA-C [address] [place] [address] [facility] [address] [place] [place] [address] Referral ID Status Reason Start Date Expiration Date V isits Requested Visits Authorized [id number] Denied Clearance Not Met - Admin/Chairm an/Director Advise to Postpone/Res chedule or Not Proceed 06/19/2023 03/24/2024 1 0 [facility] for visit Narrative* Diagnostic Procedure Only (Routine) - Closed Specialty Diagnoses / Procedures Referred By Contac t Referred To Contact XR IMAGING Diagnoses Seronegative rheumatoid arthritis (HCC) Procedures XR KNEE LIMITED 2V AP/LAT BILATERAL RADIOLOGIC EXAMINATION KNEE 1/2 VIEWS Ginny Cooper MD [address] [place] [address] Phone: tel: fax: XR IMAGING [place] [id number] Referral ID Status Reason Start Date Expiration Date V isits Requested Visits Authorized [id number] Closed Auto-Generate d Referral 01/09/2025 02/08/2026 1 1 [facility] Summary Purpose Family History No Family History Records FoundNo Family History Records FoundNo Family History Records FoundNo Family History Records FoundNo Family History Records FoundNo Family History Records Found Advance Directives No Advanced Directives Records FoundNo Advanced Directives Records FoundNo Advanced Directives Records FoundNo Advanced Directives Records FoundNo Advanced Directives Records FoundNo Advanced Directives Records Found Reason for Referral Specialty Diagnoses / Procedures Referred By Marlee t Referred To Contact MR IMAGING Diagnoses 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 Procedures MRI BRAIN WO/W IVCON MRI BRAIN BRAIN STEM W/O W/CONTRAST MATERIAL Niki Medellin, TANYA.FOCUSED FACTORY MANAGER [address] [id number] [facility] Referral ID Status Reason Start Date Expiration Date Visits Requested Visits Authorized [id number] Pending Review Auto-Generat ed Referral 09/19/2022 10/18/2023 1 1 Specialty Diagnoses / Procedures Referred By Marlee boyle Referred To Contact MR IMAGING Diagnoses 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 Ema Goff DATE CREATED AUTHOR AUTHOR'S ORGANIZ ATION 05/31/2020 [facility] DATE CREATED AUTHOR AUTHOR'S ORGANIZ ATION 11/06/2021 [facility] DATE CREATED AUTHOR AUTHOR'S ORGANIZ ATION 04/06/2024 [facility] DATE CREATED AUTHOR AUTHOR'S ORGANIZ ATION [facility]/20[facility] DATE CREATED AUTHOR AUTHOR'S ORGANIZ ATION 06/22/2025 [facility] Source Comments (unrecognize d section and content) In the event this informatio n is protected by the Federal Confidentiality of Alcohol and Drug Abuse Patient Records regulations: The Federal rules restrict any use of the information to criminally investigate or prosecute any alcohol or drug abuse patient.[facility] the event this information is protected by the Federal Confidentiality of Alcohol and Drug Abuse Patient Records regulations: The Federal rules restrict any use of the information to criminally investigate or prosecute any alcohol or drug abuse patient.[facility] the event this information is protected by the Federal Confidentiality of Alcohol and Drug Abuse Patient Records regulations: The Federal rules restrict any use of the information to criminally investigate or prosecute any alcohol or drug abuse patient.[facility] the event this information is protected by the Federal Confidentiality of Alcohol and Drug Abuse Patient Records regulations: The Federal rules restrict any use of the information to criminally investigate or prosecute any alcohol or drug abuse patient.[facility] the event this information is protected by the Federal Confidentiality of Alcohol and Drug Abuse Patient Records regulations: The Federal rules restrict any use of the information to criminally investigate or prosecute any alcohol or drug abuse patient.[facility] the event this information is protected by the Federal Confidentiality of Alcohol and Drug Abuse Patient Records regulations: The Federal rules restrict any use of the information to criminally investigate or prosecute any alcohol or drug abuse patient.[facility] the event this information is protected by the Federal Confidentiality of Alcohol and Drug Abuse Patient Records regulations: The Federal rules restrict any use of the information to criminally investigate or prosecute any alcohol or drug abuse patient.[facility] the event this information is protected by the Federal Confidentiality of Alcohol and Drug Abuse Patient Records regulations: The Federal rules restrict any use of the information to criminally investigate or prosecute any alcohol or drug abuse patient.[facility] the event this information is protected by the Federal Confidentiality of Alcohol and Drug Abuse Patient Records regulations: The Federal rules restrict any use of the information to criminally investigate or prosecute any alcohol or drug abuse patient.[facility] the event this information is protected by the Federal Confidentiality of Alcohol and Drug Abuse Patient Records regulations: The Federal rules restrict any use of the information to criminally investigate or prosecute any alcohol or drug abuse patient.[facility] the event this information is protected by the Federal Confidentiality of Alcohol and Drug Abuse Patient Records regulations: The Federal rules restrict any use of the information to criminally investigate or prosecute any alcohol or drug abuse patient.[facility] the event this information is protected by the Federal Confidentiality of Alcohol and Drug Abuse Patient Records regulations: The Federal rules restrict any use of the information to criminally investigate or prosecute any alcohol or drug abuse patient.[facility] the event this information is protected by the Federal Confidentiality of Alcohol and Drug Abuse Patient Records regulations: The Federal rules restrict any use of the information to criminally investigate or prosecute any alcohol or drug abuse patient.[facility] the event this information is protected by the Federal Confidentiality of Alcohol and Drug Abuse Patient Records regulations: The Federal rules restrict any use of the information to criminally investigate or prosecute any alcohol or drug abuse patient.[facility] the event this information is protected by the Federal Confidentiality of Alcohol and Drug Abuse Patient Records regulations: The Federal rules restrict any use of the information to criminally investigate or prosecute any alcohol or drug abuse patient.[facility] the event this information is protected by the Federal Confidentiality of Alcohol and Drug Abuse Patient Records regulations: The Federal rules restrict any use of the information to criminally investigate or prosecute any alcohol or drug abuse patient.[facility] the event this information is protected by the Federal Confidentiality of Alcohol and Drug Abuse Patient Records regulations: The Federal rules restrict any use of the information to criminally investigate or prosecute any alcohol or drug abuse patient.[facility] the event this information is protected by the Federal Confidentiality of Alcohol and Drug Abuse Patient Records regulations: The Federal rules restrict any use of the information to criminally investigate or prosecute any alcohol or drug abuse patient.[facility] Reason for Visit (unrecogniz ed section and content) Reason Comments Joint Pain Reason Comments Orders Reason Comments Established Patient Reason Comments Established Patient Specialty Diagnoses / Procedures Referred By Madeleineac t Referred To Contact MR IMAGING Diagnoses 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 Procedures MRI BRAIN WO/W IVCON MRI BRAIN BRAIN STEM W/O W/CONTRAST MATERIAL Niki Medellin APRN.FOCUSED FACTORY MANAGER [address] [place] [address] [place] [address] Referral ID Status Reason Start Date Expiration Date V isits Requested Visits Authorized [id number] Closed Auto-Generate d Referral 09/19/2022 10/18/2023 1 1 Reason Comments Refill Request Reason Comments Rheumatoid Arthritis Reason Comments Recheck Reason Comments Recheck Care Teams (unrecognized sec tion and content) Project Management Instructor Relationship Specialty Start Date End Date Alyssa Philip [address] [place] [address] PCP - General Family Medicine 04/22/18 Project Management Instructor Relationship Specialty Start Date End Date Alyssa Philip [address] [place] [address] PCP - General Family Medicine 04/22/18 Project Management Instructor Relationship Specialty Start Date End Date Alyssa Philip MD [address] [place] [address] PCP - General Family Medicine 04/22/18 Project Management Instructor Relationship Specialty Start Date End Date Aylssa Philip MD [address] [place] [address] PCP - General Family Medicine 04/22/18 Project Management Instructor Relationship Specialty Start Date End Date Alyssa Philip MD [address] [place] [address] PCP - General Family Medicine 04/22/18 Project Management Instructor Relationship Specialty Start Date End Date Alyssa Philip MD [address] [place] [address] PCP - General Family Medicine 04/22/18 Project Management Instructor Relationship Specialty Start Date End Date Alyssa Philip MD [address] [place] [address] PCP - General Family Medicine 04/22/18 Project Management Instructor Relationship Specialty Start Date End Date Alyssa Philip MD [address] [place] [address] PCP - General Family Medicine 04/22/18 Project Management Instructor Relationship Specialty Start Date End Date Alyssa Philip MD [address] [place] [address] PCP - General Family Medicine 04/22/18 Project Management Instructor Relationship Specialty Start Date End Date Alyssa Philip MD [address] [place] [address] PCP - General Family Medicine 04/22/18 Project Management Instructor Relationship Specialty Start Date End Date Alyssa Philip MD [address] [place] [address] PCP - General Family Medicine 04/22/18 Project Management Instructor Relationship Specialty Start Date End Date Alyssa Philip MD [address] [place] [address] PCP - General Family Medicine 04/22/18 Project Management Instructor Relationship Specialty Start Date End Date Alyssa Philip MD [address] [place] [address] PCP - General Family Medicine 04/22/18 Project Management Instructor Relationship Specialty Start Date End Date Alyssa Philip MD [address] [place] [address] PCP - General [facility] 04/22/18 Project Management Instructor Relationship Specialty Start Date End Date Alyssa Philip MD [address] [place] [address] PCP - General Family Medicine 04/22/18 Project Management Instructor Relationship Specialty Start Date End Date Alyssa Philip MD [address] [place] [address] PCP - General [facility] 04/22/18 Project Management Instructor Relationship Specialty Start Date End Date Alyssa Philip MD [address] [place] [address] PCP - General Family Medicine 04/22/18 Inactive Administered Medications - up to 3 most recent administrations Administered Medications (un recognized section and content) Medication Order MAR Action Action Date Dose Rate Site diphenhydrAMINE 12.5-50 mg injection (BENADRYL) 12.5-50 mg, INTRAVENOUS, DIRECTED, Starting on Thu12/18/23 at 1030, Until Thu12/18/23 at 1429, DOSING DIRECTED BY PHYSICIAN FOR PROCEDURAL SEDATION ONLY, Intraprocedure Given 12/18/2023 10:16 AM EDT 50 mg fentaNYL 50 mcg/mL 25-100 mcg injection (SUBLIMAZE) 25-100 mcg, INTRAVENOUS, DIRECTED, Starting on Thu12/18/23 at 1030, Until Thu12/18/23 at 1429, DOSING DIRECTED BY PHYSICIAN FOR PROCEDURAL SEDATION ONLY, Intraprocedure Given 12/18/2023 10:14 AM EDT 50 mcg lactated ringers iv infusion 75 mL/hr, INTRAVENOUS, CONTINUOUS, Starting on Thu12/18/23 at 1000, Until Thu12/18/23 at 1053, Preprocedure New Bag/Syringe/Bottle 12/18/2023 9:55 AM EDT 75 mL/hr 75 mL/hr midazolam (PF) 1-5 mg injection (VERSED) 1-5 mg, INTRAVENOUS, DIRECTED, Starting on Thu12/18/23 at 1030, Until Thu12/18/23 at 1429, DOSING DIRECTED BY PHYSICIAN FOR PROCEDURAL SEDATION ONLY, Intraprocedure Given 12/18/2023 10:25 AM EDT 2 mg Given 12/18/2023 10:19 AM EDT 2 mg Given 12/18/2023 10:14 AM EDT 3 mg FOR RECORDS PERTAINING TO PATIENTS WHO ARE OR HAVE BEEN ENROLLED IN A CHEMICAL DEPENDENCY/SUBSTANCEABUSE PROGRAM, SOME INFORMATION MAY BE OMITTED. This clinical summary was aggregated from multiple sources. Caution should be exercised in using it in the provision of clinical care. This summary normalizes information from multiple sources, and as a consequence, information in this document may materially change the coding, format and clinical context of patient data. In addition, data may be omitted in some cases. CLINICAL DECISIONS SHOULD BE BASED ON THE PRIMARY CLINICAL RECORDS. [facility] [facility]. provides no warranty or guarantee of the accuracy or completeness of information in this document.
== END | disposition home or self-care (01) ==
LOC: BFHLAB 15:45
PROVIDERS: PCP Family Medicine; Visit Provider Family Medicine
DX: E03.9 Hypothyroidism, unspecified (principal)
CPT/HCPCS: 36415; 84439; 84443